=== PATIENT | male | born 1945 | race Caucasian/White ===

== ENCOUNTER → 2017-12-10 14:13 | Outpatient (CLI) | payer OTHER, SELFPAY | PROVIDERS: PCP Family Medicine; Visit Provider Internal Medicine Hematology & Oncology | DX: C83.10 Mantle cell lymphoma, unspecified site (principal) | CPT/HCPCS: 81401 ==

== ENCOUNTER 2017-12-25 09:45 | Day surgery (SDC) | payer OTHER, SELFPAY ==
[2017-12-25 10:25] VITALS: BP 125/74; PULSE 60; RESP 16; TEMP 36.4; O2SAT 99; BMI 25.1
--- NOTE | 2017-12-25 10:45 | PM.HP.1 ---
History of Present Illness Date Patient Seen: 12/25/17 Time Patient Seen: 10:46 Chief complaint: colonoscopy [id number] Narrative: Mr. Verona infante is a very pleasant 72-year-old gentleman who presents today for screening colonoscopy. He reports that his mother with colon cancer and so he is on a 5 year screening schedule. His last colonoscopy was done about 5 years ago at [facility]. We do not have those records. He reports that a benign polyp was removed at that time. He denies any new problems or symptoms related to the function of his GI tract. Patient History Family & Social History Family History: Reviewed 12/25/17 by Belinda Cm MD Meds Home Medications Medication Instructions Recorded Confirmed Type aspirin 81 mg PO QDAY #0 05/02/17 12/25/17 History [PROBIOTIC] #0 08/11/17 History melatonin 5 mg PO HS #0 08/11/17 12/25/17 History atorvastatin 20 mg PO DAILY 12/25/17 12/25/17 History verapamil 180 mg PO DAILY 12/25/17 12/25/17 History Allergies Allergy/AdvReac Type Severity Reaction Status Date / Time oxycodone Allergy Mild itching Verified 12/25/17 10:21 Review of Systems Review of Systems All systems reviewed & are unremarkable except as noted in HPI and below Exam Narrative Exam Narrative: Very pleasant and healthy-appearing gentleman in no obvious distress. HEENT: Normocephalic and atraumatic, pupils equal round reactive to light accommodation with anicteric sclera. Lungs: Clear to auscultation bilaterally Heart: Regular rate and rhythm Abdomen: Soft, nontender, active bowel sounds. Extremities warm and well perfused without open wounds or evidence of ongoing infection or tissue loss. Assessment & Plan Plan: Assessment/Plan Narrative: Very pleasant and a and generally healthy gentleman that has some few underlying medical problems who presents here for screening colonoscopy in the setting of a family history of colon cancer. We discussed the risks and benefits of colonoscopy the patient expressed desire to have the procedure.
[2017-12-25] MEDS: SODIUM CHLORIDE 0.9% 1,000 ML 200 ML IV (10:46)
--- NOTE | 2017-12-25 10:48 | P.HP_ITS ---
History of Present Illness Date Patient Seen: 12/25/17 Time Patient Seen: 10:46 Chief complaint: colonoscopy [id number] Narrative: Mr. Verona infante is a very pleasant 72-year-old gentleman who presents today for screening colonoscopy. He reports that his mother with colon cancer and so he is on a 5 year screening schedule. His last colonoscopy was done about [address] [facility]. We do not have those records. He reports that a benign polyp was removed at that time. He denies any new problems or symptoms related to the function of his GI tract. Patient History Family & Social History Family History: Reviewed 12/25/17 by Belinda Cm MD Meds Home Medications Medication Instructions Recorded Confirmed Type aspirin 81 mg PO QDAY #0 05/02/17 12/25/17 History [PROBIOTIC] #0 08/11/17 History melatonin 5 mg PO HS #0 08/11/17 12/25/17 History atorvastatin 20 mg PO DAILY 12/25/17 12/25/17 History verapamil 180 mg PO DAILY 12/25/17 12/25/17 History Allergies Allergy/AdvReac Type Severity Reaction Status Date / Time oxycodone Allergy Mild itching Verified 12/25/17 10:21 Review of Systems Review of Systems All systems reviewed & are unremarkable except as noted in HPI and below Exam Narrative Exam Narrative: Very pleasant and healthy-appearing gentleman in no obvious distress. HEENT: Normocephalic and atraumatic, pupils equal round reactive to light accommodation with anicteric sclera. Lungs: Clear to auscultation bilaterally Heart: Regular rate and rhythm Abdomen: Soft, nontender, active bowel sounds. Extremities warm and well perfused without open wounds or evidence of ongoing infection or tissue loss. Assessment & Plan Plan: Assessment/Plan Narrative: Very pleasant and a and generally healthy gentleman that has some few underlying medical problems who presents here for screening colonoscopy in the setting of a family history of colon cancer. We discussed the risks and benefits of colonoscopy the patient expressed desire to have the procedure.
[2017-12-25] MEDS: fentaNYL 250 MCG/5 ML INJ IV (11:01)
--- NOTE | 2017-12-25 11:22 | PM.OP.1 ---
Operative Date/Time/Diagnoses - Date of procedure: 12/25/17 Time of procedure: 11:22 Pre-op diagnosis: Screening Family history of colon cancer Post-op diagnosis: same Procedure & Clinicians Procedure: Screening Same procedure as scheduled: Yes Indications: Last colonoscopy 5 years ago Surgeon: Belinda Cm Anesthesia Type: Sedation (Versed 6 mg; fentanyl 200 mcg) Operative Notes Findings: 1. Excellent prep 2. No polyps or mass lesions 3. No AV malformations 4. Tortuous sigmoid colon with few scattered diverticuli 5. Grade 2 internal hemorrhoids 6. Essentially normal colonoscopy Closure Type: not applicable Specimen(s): none sent Estimated Blood Loss (mL): 0 Procedure in detail: After obtaining informed consent, the patient was brought to the GI suite and placed in the left lateral decubitus position on the examination table. After placement of appropriate monitors, the patient was given incremental doses of Versed and Fentanyl until an appropriate level of sedation was achieved. A time out was held per SCOAP protocol. A digital rectal examination was performed and did not reveal any masses or obstructing lesions. The colonoscope was gently passed into the patient's anus and the entire colon navigated to the level of the cecum with minimal difficulty. Once in the cecum, the scope was withdrawn being sure to go before and beyond all mucosal folds and prominences and get an excellent examination. The findings are noted above. At the level of the rectal vault, the scope was retroflexed and the internal anal canal was examined. The scope was straightened and air aspirated from the colon. The instrument was removed from the patient's body and the procedure was concluded. The patient was allowed to awaken from sedation without difficulty and taken to the post-anesthesia care unit in good condition. Total sedation time was 19 min Total withdrawal time 7 min 47 sec Complications: none Condition: stable Disposition: PACU Plan for aftercare: 1. Discharge to home 2. Plan for next colonoscopy in 5 years or as clinically indicated
[2017-12-25] MEDS: MIDAZOLAM 5 MG/5 ML VIAL IV (11:24)
[2017-12-25 11:30] VITALS: BP 110/57; PULSE 61; RESP 17; TEMP 36.1; O2SAT 96
[2017-12-25 11:35] VITALS: BP 109/59; PULSE 63; RESP 17; O2SAT 97
[2017-12-25 11:39] VITALS: BP 118/58; PULSE 67; RESP 18; TEMP 36.2; O2SAT 97
[2017-12-25 11:51] VITALS: BP 110/65; PULSE 66; RESP 17; TEMP 36.5; O2SAT 98
== END 2017-12-25 12:00 ==
LOC: ENDO 09:46
PROVIDERS: PCP Family Medicine; Visit Provider Surgery
PROC: 0DJD8ZZ Inspection of Lower Intestinal Tract, Via Natural or Artificial Opening Endoscopic (ICD-10-PCS; CPT 45378; principal; 2017-12-25 10:45)
DX: Z12.11 Encounter for screening for malignant neoplasm of colon (principal); K57.30 Diverticulosis of large intestine without perforation or abscess without bleeding; K64.1 Second degree hemorrhoids; Z80.0 Family history of malignant neoplasm of digestive organs; Z86.010 Personal history of colon polyps
CPT/HCPCS: 45378; 99152; G0105; J2250; J3010

== ENCOUNTER → 2018-01-29 14:23 | Outpatient (CLI) | payer OTHER, SELFPAY ==
[2018-01-29 15:00] LABS: Alanine Aminotransferase 25 IU/L (21-72); Albumin Globulin Ratio 1.5 (1.0-2.8); Alkaline Phosphatase 90 U/L (38-126); Aspartate Aminotransferase 32 IU/L (17-59); BUN Creatinine Ratio 24.4 (6-22); Bilirubin Total 0.8 mg/dL (0.2-1.3); Blood Urea Nitrogen 22 mg/dL (9-20); Calcium 8.7 mg/dL (8.4-10.2); Carbon Dioxide 27 mmol/L (22-32); Chloride 102 mmol/L (98-107); Estimated Glomerular Filt Rate > 60.0 mL/min (>60); Globulin 2.7 g/dL (1.7-4.1); Glucose 136 mg/dL (80-110); HEMOLYSIS < 15 (0-50); Lactate Dehydrogenase 497 U/L (313-618); Sodium 138 mmol/L (137-145); Total Protein 6.7 g/dL (6.3-8.2)
[2018-01-29 15:01] LABS: Hematocrit 30.5 % (41-53); Hemoglobin 10.1 g/dL (13.5-17.5); Mean Corpuscular HGB Conc 33.2 % (30-36); Mean Corpuscular Hemoglobin 30.8 PG (26-34); Mean Corpuscular Volume 92.5 fL (80-100); Platelet Count 76 X10^3/uL (150-400); Red Cell Distribution Width 18.8 % (11.6-14.8)
[2018-01-29 15:06] LABS: Add Manual Diff / Slide Review YES
--- NOTE | 2018-01-29 15:26 | PC.NURSE ---
Pt here for 4 week f/u labs as ordered by Dr Robledo. WBC on 01/08/18 were noted as 21K, today however the are down slightly to 16K. Pt has a provider visit in Feb to discuss moving forward with Rituxan/Bendamustine.
[2018-01-29 15:48] LABS: Anisocytosis 2+; Neutrophils Absolute Manual 1760 /uL (3000-5900); Total Cells Counted 100
[2018-01-29 15:49] LABS: Hypochromasia 2+; Poikilocytosis 1+
[2018-02-01 13:24] LABS: Haptoglobin 231 mg/dL (43-212)
== END ==
PROVIDERS: PCP Family Medicine; Visit Provider Internal Medicine Hematology & Oncology
DX: D47.9 Neoplasm of uncertain behavior of lymphoid, hematopoietic and related tissue, unspecified (principal)
CPT/HCPCS: 36415; 80053; 83010; 83615; 85025; 86880

== ENCOUNTER → 2018-02-12 10:46 | Outpatient (CLI) | payer OTHER, SELFPAY ==
--- NOTE | 2018-02-12 10:49 | DI.US.S_ITS ---
PROCEDURE: US ABDOMEN LIMITED INDICATIONS: SPLENOMEGALY TECHNIQUE: Real-time focused scanning was performed of the abdomen, with image documentation. COMPARISON: [facility], , ABDOMEN LIMITED, 08/18/2017, 9:13. FINDINGS: Splenomegaly is again noted, the spleen measuring 9.4 x 10.9 x 21.1 cm, volume 1127 cc. Volume on prior exam was 1163 cc with maximum dimension of 19.8 CM. No splenic mass lesions seen. IMPRESSION: Splenomegaly Dictated by: Hermes Marie M.D. on 02/12/2018 at 12:56 Approved by: Hermes Marie M.D. on 02/12/2018 at 12:58
== END ==
PROVIDERS: PCP Family Medicine; Visit Provider Nurse Practitioner Gerontology
DX: R16.1 Splenomegaly, not elsewhere classified (principal)
CPT/HCPCS: 76705

== ENCOUNTER 2018-03-05 12:11 | Emergency (ER) | payer OTHER, SELFPAY ==
[2018-03-05 12:15] VITALS: BP 112/65; PULSE 65; RESP 18; TEMP 36.7; O2SAT 100; BMI 25.0
--- NOTE | 2018-03-05 12:31 | ED_ITS ---
HPI - Nausea/Vomiting/Diarrhea <Yarelis Jaeger PA-C - Last Filed: 03/05/18 13:19> General Chief complaint: Nausea/Vomiting/Diarrhea Stated complaint: DIARRHEA X2 DAYS Time Seen by Provider: 03/05/18 12:28 Source: patient Mode of arrival: ambulatory Limitations: no limitations History of Present Illness HPI Narrative: This 72 year old gentleman comes in today due to diarrhea for the last 2 days. He states that he was traveling on his boat in [place] and about a week and a half ago opened a can of pickled asparagus and the seal sounded funny. He ate a bit and states that he was violently ill that night with vomiting and diarrhea. States that he was better by the next day. He states that he has been fine since then until yesterday, when he started to have diarrhea again. He states this is watery, has had 3 episodes per day. There is no blood in the stool. He states that he does not have any abdominal pain or vomiting associated with this. He has not had any fever. He denies any urinary symptoms, chest pain, dyspnea or other complaints on systems review. He states that he has not had any recent medication changes, no recent antibiotics, other travel or diet changes. They do get water via hose from various ports when on their boat, but this is filtered and his has not been ill. He states he is feeling fine now, last bowel movement was a couple of hours prior to arrival. He has a normal appetite and he eating and drinking normally Related Data Home Medications Medication Instructions Recorded Confirmed aspirin 81 mg PO QDAY #0 05/02/17 12/25/17 [PROBIOTIC] #0 08/11/17 melatonin 5 mg PO HS #0 08/11/17 12/25/17 atorvastatin 20 mg PO DAILY 12/25/17 12/25/17 verapamil 180 mg PO DAILY 12/25/17 12/25/17 cholecalciferol (vitamin D3) 2,000 unit PO DAILY 01/08/18 01/08/18 [Vitamin D3] multivitamin 1 cap PO DAILY 01/08/18 01/08/18 Allergies Allergy/AdvReac Type Severity Reaction Status Date / Time oxycodone Allergy Mild itching Verified 03/05/18 12:20 Review of Systems <Yarelis Jaeger PA-C - Last Filed: 03/05/18 13:19> Review of Systems All systems reviewed & are unremarkable except as noted in HPI and below Exam <Yarelis Jaeger PA-C - Last Filed: 03/05/18 13:19> Narrative Exam Narrative: GENERAL APPEARANCE: Patient sitting comfortably, in no distress. HEENT: PERRL, EOMI, no scleral icterus NECK: Supple LUNGS: Clear to auscultation bilaterally. HEART: Rate and rhythm regular, normal S1 and S2, no S3 or S4. ABDOMEN: Soft, nontender, nondistended, bowel sounds present x 4 quadrants, no masses palpable, no hepatosplenomegaly. EXTREMITIES: No edema, no cyanosis DERMATOLOGIC: No jaundice or exanthem NEUROLOGIC: Alert and oriented with normal speech and coordination Initial Vital Signs Initial Vital Signs: Vital Signs Temperature 98.0 F 03/05/18 12:15 Pulse Rate 65 03/05/18 12:15 Respiratory Rate 18 03/05/18 12:15 Blood Pressure 112/65 03/05/18 12:15 Pulse Oximetry 100 03/05/18 12:15 <DO Deneen Pierce Last Filed: 03/08/18 23:48> Initial Vital Signs Initial Vital Signs: Vital Signs Temperature 98.0 F 03/05/18 12:15 Pulse Rate 65 03/05/18 12:15 Respiratory Rate 18 03/05/18 12:15 Blood Pressure 112/65 03/05/18 12:15 Pulse Oximetry 100 03/05/18 12:15 Course <Yarelis Jaeger PA-C - Last Filed: 03/05/18 13:19> Additional Information: Patient is unable to produce a stool sample while here. He reports that he is feeling well currently and wishes to d/c. He agreed to return if feeling acutely worse again or new symptoms such as pain, vomiting, fever. He was given a stool kit to take home in case he feels like he needs to return to the ED and able to produce a sample to bring in Vital Signs - 8 hr 03/05/18 12:15 Temperature 98.0 F Pulse Rate 65 Respiratory Rate 18 Blood Pressure 112/65 Pulse Oximetry 100 <Hal Gonzalez DO - Last Filed: 03/08/18 23:48> Vital Signs - 8 hr 03/05/18 12:15 Temperature 98.0 F Pulse Rate 65 Respiratory Rate 18 Blood Pressure 112/65 Pulse Oximetry 100 Discharge Plan Departure Patient Disposition: Home Clinical Impression: Diarrhea Discharge Date/Time: 03/05/18 13:06 Interventions: ED Discharge Assessment Last Done: 03/05/18 13:05 Instructions: DI for Diarrhea and Traveler's Diarrhea -- Adult Activity Restrictions/Additional Instructions: Since you are not able to give us a stool sample now and are feeling fairly well , it is reasonable to monitor at home as you prefer. You can try over the counter immodium as needed. Please drink plenty of clear fluids. Eat a bland diet, like the BRAT diet (bananas, broth, white rice, white toast, applesauce , tea) until you are better, then you can gradually advance to your usual diet. We have given you stool culture tubes in case you are feeling worse again and want to collect a stool sample to bring if you need to return to the ED so that we can send it for testing. You should return if you are feeling acutely worse , or have new symptoms such as fever, pain, or vomiting. Otherwise you can follow up with your PCP if this is not resolving by the weekend Prescriptions: No Action aspirin 81 MG tablet,delayed release (DR/EC) 81 mg PO QDAY Qty: 0 RF: 0 melatonin 5 MG tablet 5 mg PO HS Qty: 0 RF: 0 [PROBIOTIC] Qty: 0 RF: 0 atorvastatin 20 mg Tablet 20 mg PO DAILY RF: 0 verapamil 180 mg PO DAILY RF: 0 multivitamin Capsule 1 cap PO DAILY RF: 0 cholecalciferol (vitamin D3) [Vitamin D3] 2,000 unit Capsule 2,000 unit PO DAILY RF: 0 Referrals: Nura Umana [Other]
== END 2018-03-05 13:06 | disposition home or self-care (01) ==
PROVIDERS: Emergency Provider Internal Medicine; PCP Family Medicine
DX: R19.7 Diarrhea, unspecified (principal)
CPT/HCPCS: 99282

== ENCOUNTER → 2018-03-24 09:52 | Outpatient (CLI) | payer OTHER, SELFPAY ==
[2018-03-24 10:16] LABS: Hematocrit 28.5 % (41-53); Hemoglobin 9.3 g/dL (13.5-17.5); Mean Corpuscular HGB Conc 32.7 % (30-36); Mean Corpuscular Hemoglobin 30.4 PG (26-34); Platelet Count 80 X10^3/uL (150-400); Red Blood Cell Count 3.06 X10^6/uL (4.5-5.9); Red Cell Distribution Width 20.5 % (11.6-14.8); White Blood Cell Count 18.4 X10^3/uL (4.5-11.0)
[2018-03-24 10:17] LABS: Add Manual Diff / Slide Review YES
[2018-03-24 10:26] LABS: Alanine Aminotransferase 26 IU/L (21-72); Albumin 3.8 g/dL (3.5-5.0); Albumin Globulin Ratio 1.4 (1.0-2.8); Alkaline Phosphatase 80 U/L (38-126); Aspartate Aminotransferase 28 IU/L (17-59); BUN Creatinine Ratio 28.9 (6-22); Bilirubin Total 0.7 mg/dL (0.2-1.3); Blood Urea Nitrogen 26 mg/dL (9-20); Calcium 8.7 mg/dL (8.4-10.2); Carbon Dioxide 30 mmol/L (22-32); Chloride 104 mmol/L (98-107); Estimated Glomerular Filt Rate > 60.0 mL/min (>60); Globulin 2.7 g/dL (1.7-4.1); Glucose 97 mg/dL (80-110); HEMOLYSIS < 15 (0-50); Lactate Dehydrogenase 463 U/L (313-618); Potassium 4.5 mmol/L (3.4-5.1); Sodium 142 mmol/L (137-145); Total Protein 6.5 g/dL (6.3-8.2)
[2018-03-24 10:45] LABS: Neutrophils Absolute Manual 1472 /uL (3000-5900); Total Cells Counted 100
[2018-03-24 10:48] LABS: Smudge Cells 1+
[2018-03-24 10:49] LABS: Poikilocytosis 1+
--- NOTE | 2018-03-24 12:02 | PC.NURSE ---
Pt here for pre visit labs. WBC up at 18.4 compared to 16.0 in January. Provider visit on 03/30
[2018-03-25 15:20] LABS: Free Kappa Light Chain 29.2 mg/L (3.3-19.4); Free Kappa/ Lambda Ratio 1.78 (0.26-1.65); Free Lambda 16.4 mg/L (5.7-26.3)
[2018-03-26 21:40] LABS: Albumin 3.5 g/dL (3.8-4.8); Alpha 1 Globulin 0.4 g/dL (0.2-0.3); Alpha 2 Globulin 0.8 g/dL (0.5-0.9); Beta 1 Globulin 0.4 g/dL (0.4-0.6); Gamma Globulin 0.7 g/dL (0.8-1.7); Protein, Total 6.1 g/dL (6.1-8.1)
== END ==
PROVIDERS: PCP Family Medicine; Visit Provider Nurse Practitioner Gerontology
DX: D47.9 Neoplasm of uncertain behavior of lymphoid, hematopoietic and related tissue, unspecified (principal)
CPT/HCPCS: 36415; 80053; 83615; 83883; 84155; 84165; 85025

== ENCOUNTER → 2018-03-31 14:22 | Outpatient (CLI) | payer OTHER, SELFPAY ==
--- NOTE | 2018-03-31 14:23 | DI.CT.S_ITS ---
PROCEDURE: CT CHEST ABD PEL W CON INDICATIONS: lymphoma TECHNIQUE: After the administration of oral and intravenous contrast, 5 mm thick sections acquired from the lung apices to the symphysis. 5 mm coronal and sagittal reformats were performed, with additional 7 mm coronal MIP reformats through the lungs. For radiation dose reduction, the following was used: automated exposure control, adjustment of mA and/or kV according to patient size. COMPARISON: [facility], CT, CHEST/ABD/PEL WITH CONTRAST, 09/05/2017, 15:07. FINDINGS: Image quality: Excellent. CHEST: Lungs and pleura: There is bilateral subpleural septal thickening compatible with chronic interstitial changes. Calcified nodules are redemonstrated consistent of old granulomatous disease. No new suspicious nodules or mass lesions. No pleural effusions or pneumothorax. Central and peripheral airways appear patent and normal in caliber. Mediastinum: Heart size is normal. No pericardial effusion. No mediastinal or hilar adenopathy by size criteria. Thoracic aorta and central pulmonary arteries are normal in size. Esophagus is normal in caliber. There is a small hiatal hernia. Chest wall: No axillary or supraclavicular adenopathy by size criteria. A ABDOMEN: Solid organs: Liver is normal in size and enhancement. Gallbladder appears within normal limits without calcified gallstones. Biliary system is non dilated. Pancreas enhances normally. There is marked splenomegaly, measuring up to 19.7 cm, increased from the prior study. No adrenal nodules. Kidneys demonstrate normal size and enhancement, without hydronephrosis. Peritoneum and bowel: Bowel loops demonstrate normal wall thickness and caliber. No free fluid or air. Nodes and vessels: No retroperitoneal or mesenteric adenopathy by size criteria. Aorta and inferior vena cava are normal in size. Miscellaneous: No ventral hernias. PELVIS: Genitourinary: There is mild bladder wall thickening anteriorly. There is heterogeneous enlargement of the prostate redemonstrated. Miscellaneous: No inguinal hernias or adenopathy. Bones: No suspicious bony lesions. No vertebral body compression fractures. IMPRESSION: 1. No evidence of lymphadenopathy in the chest, abdomen, or pelvis. 2. Marked splenomegaly increased from the prior study. Dictated by: Pete Padgett M.D. on 03/31/2018 at 17:20 Approved by: Pete Padgett M.D. on 03/31/2018 at 17:23
--- NOTE | 2018-03-31 14:23 | DI.CT.S_ITS ---
PROCEDURE: CT SOFT TISSUE NECK W CON INDICATIONS: LYMPHOMA TECHNIQUE: After the administration of intravenous contrast, 3.0 mm axial sections acquired from the sella to the aortic arch. Additional oblique axial 3.0 mm sections acquired through the pharynx. 3 mm thick coronal and sagittal reformats were generated. For radiation dose reduction, the following was used: automated exposure control. COMPARISON: [facility], CR, CHEST 1 VIEW, 08/12/2014, 11:29. [facility], CT, CHEST/ABD/PEL WITH CONTRAST, 09/05/2017, 15:07. [facility], CT, CT CHEST ABD PEL W CON, 03/31/2018, 15:44. FINDINGS: Image quality: Excellent. Lymph nodes: A borderline enlarged left supraclavicular lymph node measures 1 cm. Numerous small normal sized cervical lymph nodes are present bilaterally. Vessels: Visualized vasculature appears patent. Neck spaces: The oropharynx, nasopharynx, and pharynx demonstrate no mucosal lesions. The vocal cords, false vocal cords, pyriform sinuses, epiglottis, vallecula, and tongue base all appear normal. Extramucosal spaces appear unremarkable. Glands: The parotid and submandibular glands appear normal. Thyroid gland is normal. Miscellaneous: Visualized brain and orbits appear normal. Lung apices appear clear. Superficial soft tissues appear normal. Bones: No suspicious bony lesions. There is severe degenerative disc disease at C5-6 and C6-C7. Bilateral uncovertebral hypertrophy and facet arthropathy scattered in cervical spine, most onset of C4-C5 on the left, and C2-C3, C3-C4 on the right.. Visualized sinuses and mastoids appear unremarkable. IMPRESSION: 1. Borderline enlarged left supraclavicular lymph node. Otherwise no cervical lymphadenopathy. 2. Severe degenerative changes in cervical spine. Dictated by: Letty Lucas M.D. on 03/31/2018 at 17:18 Transcribed by: JOEY on 03/31/2018 at 17:22 Approved by: Letty Lucas M.D. on 03/31/2018 at 17:29
== END ==
PROVIDERS: PCP Family Medicine; Visit Provider Internal Medicine Hematology & Oncology
DX: C85.89 Other specified types of non-Hodgkin lymphoma, extranodal and solid organ sites (principal); R07.0 Pain in throat; M50.322 Other cervical disc degeneration at C5-C6 level; R16.1 Splenomegaly, not elsewhere classified
CPT/HCPCS: 70491; 71260; 74177; Q9967

== ENCOUNTER → 2018-04-01 13:54 | Outpatient (CLI) | payer OTHER, SELFPAY ==
[2018-04-01 14:46] LABS: Lactate Dehydrogenase 484 U/L (313-618)
[2018-04-01 18:39] LABS: Hepatitis B Surface Antigen NEGATIVE s/c (NEGATIVE)
[2018-04-01 18:57] LABS: HIV 1 and 2 Antibody NEGATIVE (NEGATIVE); Hep C Virus Ab w/Reflex Quant NEGATIVE s/c (NEGATIVE)
[2018-04-03 14:46] LABS: Hepatitis A Antibody IgM Nonreactive (Nonreactive)
== END ==
PROVIDERS: PCP Family Medicine; Visit Provider Internal Medicine Hematology & Oncology
DX: C85.89 Other specified types of non-Hodgkin lymphoma, extranodal and solid organ sites (principal)
CPT/HCPCS: 36415; 83615; 84550; 86703; 86704; 86705; 86709; 86803; 87340

== ENCOUNTER → 2018-08-19 09:48 | Outpatient (CLI) | payer OTHER, SELFPAY ==
--- NOTE | 2018-08-19 09:53 | DI.CT.S_ITS ---
PROCEDURE: CT CHEST ABD PEL W CON INDICATIONS: Lymphoma restaging TECHNIQUE: After the administration of oral and intravenous contrast, 5 mm thick sections acquired from the lung apices to the symphysis. 5 mm coronal and sagittal reformats were performed, with additional 7 mm coronal MIP reformats through the lungs. For radiation dose reduction, the following was used: automated exposure control, adjustment of mA and/or kV according to patient size. COMPARISON: [facility], CT, CT CHEST ABD PEL W CON, 03/31/2018, 15:44. [facility], CT, CHEST/ABD/PEL WITH CONTRAST, 09/05/2017, 15:07. FINDINGS: Image quality: Diagnostic. CHEST: Lungs and pleura: The aeration of the lungs is similar to the prior study with areas of interstitial thickening identified within the posterior bilateral lungs. No focal consolidation, effusion, or pneumothorax is identified. There is no lung mass. Subcentimeter nodule is again evident along the left pulmonary fissure that measures approximately 8 mm in diameter (image 30, series 2). No new nodules are evident. Mediastinum: Heart size is normal. Coronary and aortic atherosclerosis is present. No pericardial effusion. No mediastinal or hilar adenopathy by size criteria. Thoracic aorta and central pulmonary arteries are normal in size. Esophagus is normal in caliber. No hiatal hernia. Chest wall and bones: No axillary or supraclavicular adenopathy by size criteria. Thyroid gland is not enlarged or adequately evaluated. Moderate multilevel degenerative changes of the thoracic spine are present with associated straightening of the normal thoracic kyphosis. No suspicious osseous lesions are evident. No acute fractures are identified. ABDOMEN: Solid organs: Marked enlargement of the spleen is again identified measuring approximately 21.1 cm in craniocaudal dimension, not significantly changed, given differences in imaging technique. No focal splenic lesions are evident. The liver is slightly hypodense when compared to the spleen, but is otherwise within normal limits. The adrenals, pancreas, and kidneys are unremarkable. Mild anterior displacement of the left kidney is identified, related to the enlarged spleen. There is no hydronephrosis. Peritoneum and bowel: Bowel loops demonstrate normal wall thickness and caliber. No free fluid or air. No loculated fluid collections are present. Moderate residual stool is identified within the colon. There are areas of distal colonic diverticulosis. Nodes and vessels: No retroperitoneal or mesenteric adenopathy by size criteria. Aorta and inferior vena cava are normal in size. There is aortic atherosclerosis. Bones: No acute fracture or suspicious osseous lesion is evident. There are prominent degenerative changes of the mid to lower lumbar spine. Grade 1 anterolisthesis of L4 and L5 is present. PELVIS: Genitourinary: Mild prominence of the urinary bladder wall is present. The prostate gland is enlarged and lobular, but not well characterized on CT. Miscellaneous: No inguinal hernias or adenopathy. No free fluid or loculated fluid collection is identified. Bones: No suspicious bony lesions. Degenerative changes of the sacroiliac joints and bilateral hips are present. IMPRESSION: 1. Marked splenomegaly without significant change in size or focal splenic lesion. 2. No lymphadenopathy or evidence of metastatic disease. Additional findings: -Enlarged prostate with thickening of the urinary bladder wall. Please correlate clinically to exclude chronic bladder outlet obstruction. -Distal colonic diverticulosis without diverticulitis. -Age-appropriate degenerative changes of the spine and pelvic joints. -Probable mild hepatic steatosis. -Coronary and aortic atherosclerosis. -Mild chronic interstitial changes within the lung bases. -Subcentimeter pulmonary nodule within the left midlung is unchanged and of doubtful significance. Dictated by: Long Freeman M.D. on 08/19/2018 at 10:32 Approved by: Long Freeman M.D. on 08/19/2018 at 10:39
== END ==
PROVIDERS: Visit Provider Internal Medicine Hematology & Oncology
DX: C85.89 Other specified types of non-Hodgkin lymphoma, extranodal and solid organ sites (principal); R16.1 Splenomegaly, not elsewhere classified; N40.0 Benign prostatic hyperplasia without lower urinary tract symptoms; K57.90 Diverticulosis of intestine, part unspecified, without perforation or abscess without bleeding; R91.1 Solitary pulmonary nodule; I25.10 Atherosclerotic heart disease of native coronary artery without angina pectoris; I70.0 Atherosclerosis of aorta; J84.9 Interstitial pulmonary disease, unspecified; M16.0 Bilateral primary osteoarthritis of hip; M47.898 Other spondylosis, sacral and sacrococcygeal region
CPT/HCPCS: 71260; 74177; Q9967

== ENCOUNTER → 2019-03-10 12:53 | Outpatient (CLI) | payer OTHER, SELFPAY ==
--- NOTE | 2019-03-10 | DI.CT.S_ITS ---
PROCEDURE: CT ABDOMEN W CON INDICATIONS: Splenomegaly, not elsewhere classified TECHNIQUE: After the administration of oral and intravenous contrast, 5 mm thick sections acquired from the diaphragms to the iliac crests. 5 mm thick coronal and sagittal reformats were acquired. For radiation dose reduction, the following was used: automated exposure control, adjustment of mA and/or kV according to patient size. COMPARISON: [facility], CT, CT CHEST ABD PEL W CON, 08/19/2018, 10:44. FINDINGS: Image quality: Excellent. Lung bases: Mild intralobular septal thickening at the lung bases.. Heart size is normal. Solid organs: The spleen is significantly enlarged measuring 23.2 x 17.6 x 8.5 cm. The splenic and portal veins are moderately enlarged. There is anterior and slight medial displacement of the normal appearing left kidney. Liver is normal in size and enhancement. Gallbladder is contracted. Biliary system is non dilated. Pancreas enhances normally. Spleen is normal in size and enhancement. No adrenal nodules. Kidneys are normal in size, without hydronephrosis. Peritoneum and bowel: Contrast enhanced bowel loops appear normal in caliber. No free fluid or air. Nodes and vessels: No retroperitoneal or mesenteric adenopathy by size criteria. Aorta and inferior vena cava are normal in size. Tortuous and moderately atherosclerotic mid to distal abdominal aorta. Borderline left periaortic lymph nodes. Bones: No suspicious bony lesions. No vertebral body compression fractures. Degenerative changes in the lumbar spine. Miscellaneous: No ventral hernias. IMPRESSION: 1. Marked splenomegaly without significant progression since the prior study. 2. Borderline left retroperitoneal adenopathy is unchanged. Dictated by: Lucy Barry M.D. on 03/10/2019 at 19:13 Approved by: Lucy Barry M.D. on 03/10/2019 at 19:18
== END ==
PROVIDERS: Visit Provider Surgery
DX: R16.1 Splenomegaly, not elsewhere classified (principal)
CPT/HCPCS: 74160; Q9967

== ENCOUNTER → 2019-04-15 15:12 | Outpatient (CLI) | payer OTHER, SELFPAY ==
[2019-04-15 15:47] LABS: Add Manual Diff / Slide Review YES; Hematocrit 29.8 % (41-53); Mean Corpuscular HGB Conc 33.5 % (30-36); Mean Corpuscular Volume 92.6 fL (80-100); Platelet Count 71 X10^3/uL (150-400); Red Blood Cell Count 3.22 X10^6/uL (4.5-5.9); Red Cell Distribution Width 19.6 % (11.6-14.8); White Blood Cell Count 11.9 X10^3/uL (4.5-11.0)
[2019-04-15 16:25] LABS: Neutrophils Absolute Manual 1547 /uL (3000-5900); Total Cells Counted 100
[2019-04-15 16:26] LABS: Anisocytosis 1+; Poikilocytosis 1+
[2019-04-15 16:37] LABS: HEMOLYSIS < 15 (0-50); Iron 46 ug/dL (49-181)
[2019-04-15 16:38] LABS: Alanine Aminotransferase 24 IU/L (21-72); Albumin 4.1 g/dL (3.5-5.0); Albumin Globulin Ratio 1.6 (1.0-2.8); Alkaline Phosphatase 99 U/L (38-126); Aspartate Aminotransferase 29 IU/L (17-59); BUN Creatinine Ratio 26.7 (6-22); Bilirubin Total 0.8 mg/dL (0.2-1.3); Blood Urea Nitrogen 24 mg/dL (9-20); Calcium 9.3 mg/dL (8.4-10.2); Carbon Dioxide 28 mmol/L (22-32); Chloride 102 mmol/L (98-107); Estimated Glomerular Filt Rate > 60.0 mL/min (>60); Globulin 2.6 g/dL (1.7-4.1); Glucose 112 mg/dL (80-110); HEMOLYSIS < 15 (0-50); Lactate Dehydrogenase 481 U/L (313-618); Potassium 4.9 mmol/L (3.4-5.1); Sodium 140 mmol/L (137-145); Total Protein 6.7 g/dL (6.3-8.2)
[2019-04-15 16:48] LABS: Percent Iron Saturation 15 % (20-50); Total Iron Binding Capacity 316 ug/dL (261-462); Transferrin 241 mg/dL (206-381)
[2019-04-15 16:53] LABS: Smudge Cells 1+
[2019-04-15 17:12] LABS: Ferritin 50.6 ng/mL (17.9-464)
[2019-04-17 12:21] LABS: Beta-2-Microglobulin 3.04 mg/L (< 2.52)
== END ==
PROVIDERS: Internal Medicine Hematology & Oncology; Visit Provider Anesthesiology
DX: D64.9 Anemia, unspecified (principal); C85.89 Other specified types of non-Hodgkin lymphoma, extranodal and solid organ sites
CPT/HCPCS: 36415; 80053; 82232; 82728; 83540; 83550; 83615; 85025

== ENCOUNTER → 2019-05-28 10:07 | Outpatient (CLI) | payer OTHER, SELFPAY ==
[2019-05-28 10:57] LABS: Hemoglobin A1C% w Est Avg Glu 5.1 % (4.0-6.0)
[2019-05-28 11:07] LABS: Alanine Aminotransferase 26 IU/L (<50); Albumin 4.3 g/dL (3.5-5.0); Albumin Globulin Ratio 1.7 (1.0-2.8); Alkaline Phosphatase 98 U/L (38-126); Aspartate Aminotransferase 36 IU/L (17-59); BUN Creatinine Ratio 26.3 (6-22); Bilirubin Total 0.7 mg/dL (0.2-1.3); Blood Urea Nitrogen 21 mg/dL (9-20); Calcium 9.3 mg/dL (8.4-10.2); Carbon Dioxide 30 mmol/L (22-32); Chloride 100 mmol/L (98-107); Cholesterol 156 mg/dL (140-199); Estimated Glomerular Filt Rate > 60.0 mL/min (>60); Globulin 2.5 g/dL (1.7-4.1); Glucose 95 mg/dL (80-110); HDL Cholesterol 41 mg/dL (40-60); HEMOLYSIS < 15 (0-50); LDL Cholesterol Calculated 102 mg/dL (<100); Potassium 4.8 mmol/L (3.4-5.1); Sodium 138 mmol/L (137-145); Total Protein 6.8 g/dL (6.3-8.2); Triglycerides 63 mg/dL (35-150)
[2019-05-28 11:37] LABS: TSH w/ Reflex to FT4 1.54 uIU/mL (0.47-4.68)
== END ==
PROVIDERS: PCP Internal Medicine Hematology & Oncology
DX: Z00.00 Encounter for general adult medical examination without abnormal findings (principal)
CPT/HCPCS: 36415; 80053; 80061; 83036; 84443

== ENCOUNTER → 2020-01-21 11:13 | Outpatient (CLI) | payer OTHER, SELFPAY ==
[2020-01-21 11:45] LABS: Add Manual Diff / Slide Review YES; Hematocrit 35.8 % (41-53); Hemoglobin 12.1 g/dL (13.5-17.5); Mean Corpuscular HGB Conc 33.7 % (30-36); Mean Corpuscular Hemoglobin 34.1 PG (26-34); Mean Corpuscular Volume 101.4 fL (80-100); Platelet Count 226 X10^3/uL (150-400); Red Blood Cell Count 3.53 X10^6/uL (4.5-5.9); Red Cell Distribution Width 18.2 % (11.6-14.8); White Blood Cell Count 23.9 X10^3/uL (4.5-11.0)
[2020-01-21 11:56] LABS: Alanine Aminotransferase 21 IU/L (<50); Albumin 4.2 g/dL (3.5-5.0); Albumin Globulin Ratio 1.4 (1.0-2.8); Alkaline Phosphatase 103 U/L (38-126); Aspartate Aminotransferase 40 IU/L (17-59); BUN Creatinine Ratio 23.7 (6-22); Bilirubin Total 0.9 mg/dL (0.2-1.3); Blood Urea Nitrogen 18 mg/dL (9-20); Carbon Dioxide 28 mmol/L (22-32); Chloride 102 mmol/L (98-107); Estimated Glomerular Filt Rate > 60.0 mL/min (>60); Globulin 2.9 g/dL (1.7-4.1); Glucose 126 mg/dL (80-110); HEMOLYSIS < 15 (0-50); Lactate Dehydrogenase 497 U/L (313-618); Potassium 4.2 mmol/L (3.4-5.1); Sodium 135 mmol/L (137-145); Total Protein 7.1 g/dL (6.3-8.2)
[2020-01-21 11:59] LABS: Anisocytosis 2+; Neutrophils Absolute Manual 3107 /uL (3000-5900); Nucleated Red Blood Cells 1 #/Diff; Poikilocytosis 1+; Total Cells Counted 100
== END ==
PROVIDERS: PCP Family Medicine; Referring Provider Internal Medicine Hematology & Oncology; Visit Provider Internal Medicine Hematology & Oncology
DX: C85.89 Other specified types of non-Hodgkin lymphoma, extranodal and solid organ sites (principal)
CPT/HCPCS: 36415; 80053; 82232; 83615; 85025

== ENCOUNTER 2020-09-14 11:12 | Emergency (ER) | payer OTHER, SELFPAY ==
[2020-09-14] VITALS (8 sets, daily range): BP systolic 136–184; BP diastolic 74–79; PULSE 45–54; RESP 14–18; TEMP 36.6; O2SAT 98–100; BMI 26.6
--- NOTE | 2020-09-14 11:31 | ED_ITS ---
HPI - General Adult General Chief complaint: Abdominal Pain Stated complaint: abdominal pain Time Seen by Provider: 09/14/20 11:18 Source: patient Mode of arrival: Ambulatory Limitations: no limitations History of Present Illness HPI narrative: Patient is a 75-year-old male. Does have a history of lymphoma. Approximately 1 year ago had his spleen removed secondary to enlargement. States he went to bed last evening feeling falling. Was woken up from sleep at approximately 0230 in the morning with left-sided abdominal pain. He states that he was sharp. It lasted a very short period of time and then went away. When he woke up again at 0500 hours in the morning he noticed that the pain was gone but since that time it has occurred multiple times. He states that is not lower his left side. He has not had a bowel movement in 24 hours. Yesterday reports no changes in his bowel movement. No urinary symptoms. No testicular pain. No fevers. Patient reports he is symptom-free at the time of my exam. Related Data Home Medications Medication Instructions Recorded Confirmed atorvastatin 20 mg PO DAILY 12/25/17 05/25/20 nitroglycerin 0.4 mg SUBLINGUAL Q5-15M PRN 04/13/18 05/25/20 naproxen sodium [Aleve] 220 mg PO BID PRN 08/21/18 05/25/20 aspirin 81 mg DAILY 05/20/19 05/25/20 multivitamin 1 cap PO DAILY 05/20/19 05/25/20 cholecalciferol (vitamin D3) 25 mcg PO DAILY 05/25/20 05/25/20 [Vitamin D3] metoprolol succinate 50 mg PO DAILY 05/25/20 05/25/20 Allergies Allergy/AdvReac Type Severity Reaction Status Date / Time oxycodone Allergy Mild itching Verified 09/14/20 11:34 Review of Systems Constitutional Constitutional: Denies fever(s) Cardiovascular Cardiovascular: Denies chest pain and Denies dyspnea Respiratory Respiratory: Denies dyspnea Gastrointestinal Gastrointestinal: Reports abdominal pain, Denies change in bowel habits, Denies nausea and Denies vomiting Genitourinary Genitourinary: Denies dysuria and Denies testicular pain Genitourinary: Denies dysuria Musculoskeletal Musculoskeletal: Denies arthralgias, Denies back pain and Denies myalgias Integumentary/Breasts Skin/Breast: Denies rash Neurologic Neurologic: Denies behavioral changes Psychiatric Psychiatric: Denies behavioral changes Hematologic/Lymphatic On Anticoagulants: No Allergic/Immunologic Allergic/Immunologic: Denies urticaria Patient History Medical History (Updated 09/14/20 @ 13:01 by Stevenson Kidd DO) A-fib Diarrhea Distal radius fracture, left Social History household members: spouse Smoking Status: Former smoker Smoking Status: Former smoker alcohol intake frequency: 0-2 drinks per day Substance Use Type: does not use Exam Initial Vital Signs Initial Vital Signs: Vital Signs Temperature 98 F 09/14/20 11:15 Pulse Rate 46 L 09/14/20 11:15 Respiratory Rate 16 09/14/20 11:15 Blood Pressure 170/74 H 09/14/20 11:15 Pulse Oximetry 100 09/14/20 11:15 Const General: cooperative and comfortable Limitations: mental status not altered HENMT Head: normal to inspection and normocephalic Resp Effort & Inspection: normal respiratory effort Auscultation: clear to auscultation bilaterally Cardio Rate: regular rate Rhythm: regular rhythm GI Inspection: non-distended Palpation: soft, No firm and No tender Back/Spine/Pelvis Back: No CVA tenderness Skin Lesions: no lesions Rashes: no rashes Neuro General: patient alert and patient awake Cognition: normal cognition Speech: speech normal Extrem General: normal to inspection and capillary refill normal Psych Appearance: grossly normal and well kempt Course Orders Ordered: ED Orders 09/14/20 11:23 Complete Blood Count AUTO DIFF Stat Comprehensive Metabolic Panel Stat Lipase Stat 09/14/20 12:10 CT abdomen pelvis w con Stat Discontinued Medications Sodium Chloride (Normal Saline 0.9%) 1,000 mls @ 1,000 mls/hr IV BOLUS ONE Stop: 09/14/20 12:30 Last Admin: 09/14/20 11:46 Dose: 1,000 mls/hr Documented by: MILLI Vital Signs Vital signs: Vital Signs - 8 hr 09/14/20 11:15 09/14/20 11:19 09/14/20 11:20 Temperature 98 F Pulse Rate 46 L 51 L 49 L Respiratory Rate 16 Blood Pressure 170/74 H 184/76 H Pulse Oximetry 100 100 100 09/14/20 11:30 09/14/20 11:31 09/14/20 12:00 Temperature Pulse Rate 53 L 50 L 45 L Respiratory Rate 18 18 17 Blood Pressure 170/74 H Pulse Oximetry 100 100 100 09/14/20 12:01 09/14/20 12:17 Temperature Pulse Rate 45 L 54 L Respiratory Rate 17 14 Blood Pressure 136/79 142/76 H Pulse Oximetry 99 98 Medical Decision Making Lab Data Lab results reviewed: Yes I reviewed the patient's lab results. Result diagrams: 09/14/20 11:23 09/14/20 11:23 Labs: Lab Results 09/14/20 09/14/20 Range/Units 11:23 11:23 WBC 25.6 H (4.5-11.0) X10^3/uL RBC 3.28 L (4.5-5.9) X10^6/uL Hgb 10.8 L (13.5-17.5) g/dL Hct 33.0 L (41-53) % MCV 100.3 H (80-100) fL MCH 32.9 (26-34) PG MCHC 32.8 (30-36) % RDW 18.8 H (11.6-14.8) % Plt Count 192 (150-400) X10^3/uL Neut % (Auto) Not Reportable Lymph % (Auto) Not Reportable [place] % (Auto) Not Reportable Eos % (Auto) Not Reportable Baso % (Auto) Not Reportable Lymph # (Auto) Not Reportable [place] # (Auto) Not Reportable Baso # (Auto) Not Reportable Total Counted 100 Seg Neutrophils % 7.0 L (38-70) % Lymphocytes % (Manual) 56.0 H (25-45) % Atypical Lymphs % 30.0 H ( - 0) % Monocytes % (Manual) 6.0 (2-11) % Eosinophils % (Manual) 1.0 L (2-4) % Neutrophils # (Manual) 1792 L (3931-1290) /uL RBC Morphology See below Hypochromasia 1+ H Poikilocytosis 1+ H Anisocytosis 2+ H Sodium 135 L (137-145) mmol/L Potassium 4.5 (3.4-5.1) mmol/L Chloride 101 (98-107) mmol/L Carbon Dioxide 31 (22-32) mmol/L BUN 24 H (9-20) mg/dL Creatinine 0.69 (0.66-1.25) mg/dL Estimated GFR > 60.0 (>60) mL/min BUN/Creatinine Ratio 34.8 H (6-22) Glucose 97 (80-110) mg/dL Calcium 9.0 (8.4-10.2) mg/dL Total Bilirubin 0.8 (0.2-1.3) mg/dL AST 40 (17-59) IU/L ALT 22 (<50) IU/L Alkaline Phosphatase 81 (38-126) U/L Total Protein 7.2 (6.3-8.2) g/dL Albumin 4.2 (3.5-5.0) g/dL Globulin 3.0 (1.7-4.1) g/dL Albumin/Globulin Ratio 1.4 (1.0-2.8) Lipase 42 (23-300) U/L Imaging Data CT scan - abdomen/pelvis: Radiologist's Impression: [address] [id number] Scan ReportSigned Patient: Theodore Rhoades [facility]#: [id number]: 5Acct:[id number]/Sex: 75 / MDate of Service: 09/14/20Loc: EDAccession Number: [id number] Procedure: CT abdomen pelvis w con Ordering Provider: Stevenson Kidd D.O. PROCEDURE: CT ABDOMEN PELVIS W CON INDICATIONS: Left-sided abdominal pain TECHNIQUE: After the administration of intravenous contrast, 5 mm thick sections acquired from the diaphragm to the symphysis. 5 mm coronal and sagittal reformats were acquired. For radiation dose reduction, the following was used: automated exposure control, adjustment of mA and/or kV according to patient size. COMPARISON: [facility], CT, CT CHEST ABD PEL W CON, 08/19/2018, 10:44. [facility], CT, CT ABDOMEN W CON, 03/10/2019, 13:55. FINDINGS: Image quality: Excellent. ABDOMEN: Lung bases: Lung bases are clear. Mild bibasilar pulmonary fibrosis again noted. Heart size is normal. Solid organs: Liver is normal in size and enhancement. Gallbladder is unremarkable.. Biliary system is non dilated. Pancreas enhances normally. Interval splenectomy. No adrenal nodules. Kidneys demonstrate normal size and enhancement, without hydronephrosis. Peritoneum and bowel: Bowel loops demonstrate normal wall thickness and caliber. No free fluid or air. Sigmoid diverticulosis without evidence of diverticulitis. Nodes and vessels: No retroperitoneal or mesenteric adenopathy by size criteria. Shotty periaortic lymph nodes are stable. There is also shotty stable left common iliac adenopathy. There is slight interval enlargement of portacaval and periportal lymph nodes. On current image 29/3 there is a 0.9 x 2.2 cm lymph node which was previously 0.6 x 1.0 cm. On current image 25/3 is a periportal lymph node which measures 1.0 x 1.8 cm. It previously measured approximately 0.4 x 1.1 cm. There has been interval growth of a small left pelvic sidewall lymph node which previously measured 0.6 x 0.4 cm and now measures 1.0 x 1.5 cm. On image 69/3, a right pelvic sidewall lymph node has developed measuring 0.7 x 1.2 cm. Aorta and inferior vena cava are normal in size. Miscellaneous: No ventral hernias. PELVIS: Genitourinary: Enlarged prostate. Diffuse bladder wall thickening. Miscellaneous: No inguinal hernias or adenopathy. Small shotty bilateral inguinal lymph nodes. Bones: No suspicious bony lesions. No vertebral body compression fractures. IMPRESSION: 1. Interval splenectomy. 2. Stable shotty periaortic and left common iliac adenopathy. 3. Interval increase in the size of periportal lymph nodes, which are not abnormal by size criteria. 4. Interval enlargement of a left pelvic sidewall lymph node and development of a right pelvic sidewall lymph node. These are also not suspicious by size criteria. 5. Enlarged prostate with associated bladder wall thickening 6. Mild bibasilar pulmonary fibrosis. Dictated by: Jamir Montiel M.D. on 09/14/2020 at 12:26 Approved by: Jamir Montiel M.D. on 09/14/2020 at 12:40 MDM Narrative Medical decision making narrative: Patient has a benign exam here in the emergency department but he does admit that he is not having any symptoms at the time my evaluation. Has a leukocytosis but this is not new for him. His CT scan shows sporadic lymphadenopathy but no other signs of infection or surgical issue. No fevers. Feel we can hold on further workup for now. Patient was informed of all of the findings on his labs and CT scan today. He is going to contact his primary provider for a follow-up. He was given return precautions. He expressed understanding and agreement. Discharge Plan Departure Patient Disposition: Home Clinical Impression: Abdominal pain Instructions: DI for Abdominal Pain-Adult Activity Restrictions/Additional Instructions: Keep all of your scheduled medical appointments and continue all of your medic ations as directed. Contact your primary provider for follow-up. Return to the emergency department for any new or worsening symptoms Prescriptions: No Action atorvastatin 20 mg Tablet 20 mg PO DAILY RF: 0 nitroglycerin 0.4 mg Tablet, Sublingual 0.4 mg SUBLINGUAL Q5-15M PRN (Reason: Pain, Moderate) RF: 0 naproxen sodium [Aleve] 220 mg Tablet 220 mg PO BID PRN (Reason: Stomach Upset) RF: 0 aspirin 81 mg Tablet,Delayed Release (Dr/Ec) 81 mg DAILY RF: 0 multivitamin Capsule 1 cap PO DAILY RF: 0 metoprolol succinate 50 mg Tablet Extended Release 24 Hr 50 mg PO DAILY RF: 0 cholecalciferol (vitamin D3) [Vitamin D3] 25 mcg (1,000 unit) Tablet 25 mcg PO DAILY RF: 0 Referrals: Alfred Solis MD [Primary Care Provider] -
--- NOTE | 2020-09-14 11:41 | PC.NURSE ---
Pt is on BB and states that his HR is normally low
[2020-09-14] MEDS: SODIUM CHLORIDE 0.9% 1,000 ML 1000 ML IV (11:46)
[2020-09-14 11:49] LABS: Alanine Aminotransferase 22 IU/L (<50); Albumin 4.2 g/dL (3.5-5.0); Albumin Globulin Ratio 1.4 (1.0-2.8); Alkaline Phosphatase 81 U/L (38-126); Aspartate Aminotransferase 40 IU/L (17-59); BUN Creatinine Ratio 34.8 (6-22); Bilirubin Total 0.8 mg/dL (0.2-1.3); Blood Urea Nitrogen 24 mg/dL (9-20); Carbon Dioxide 31 mmol/L (22-32); Chloride 101 mmol/L (98-107); Estimated Glomerular Filt Rate > 60.0 mL/min (>60); Glucose 97 mg/dL (80-110); HEMOLYSIS < 15 (0-50); Lipase 42 U/L (23-300); Potassium 4.5 mmol/L (3.4-5.1); Sodium 135 mmol/L (137-145); Total Protein 7.2 g/dL (6.3-8.2)
[2020-09-14 11:53] LABS: Hemoglobin 10.8 g/dL (13.5-17.5); Mean Corpuscular HGB Conc 32.8 % (30-36); Mean Corpuscular Hemoglobin 32.9 PG (26-34); Mean Corpuscular Volume 100.3 fL (80-100); Platelet Count 192 X10^3/uL (150-400); Red Blood Cell Count 3.28 X10^6/uL (4.5-5.9); Red Cell Distribution Width 18.8 % (11.6-14.8); White Blood Cell Count 25.6 X10^3/uL (4.5-11.0)
[2020-09-14 11:57] LABS: Add Manual Diff / Slide Review YES
--- NOTE | 2020-09-14 12:10 | DI.CT.S_ITS ---
PROCEDURE: CT ABDOMEN PELVIS W CON INDICATIONS: Left-sided abdominal pain TECHNIQUE: After the administration of intravenous contrast, 5 mm thick sections acquired from the diaphragm to the symphysis. 5 mm coronal and sagittal reformats were acquired. For radiation dose reduction, the following was used: automated exposure control, adjustment of mA and/or kV according to patient size. COMPARISON: [facility], CT, CT CHEST ABD PEL W CON, 08/19/2018, 10:44. [facility], CT, CT ABDOMEN W [facility], 03/10/2019, 13:55. FINDINGS: Image quality: Excellent. ABDOMEN: Lung bases: Lung bases are clear. Mild bibasilar pulmonary fibrosis again noted. Heart size is normal. Solid organs: Liver is normal in size and enhancement. Gallbladder is unremarkable.. Biliary system is non dilated. Pancreas enhances normally. Interval splenectomy. No adrenal nodules. Kidneys demonstrate normal size and enhancement, without hydronephrosis. Peritoneum and bowel: Bowel loops demonstrate normal wall thickness and caliber. No free fluid or air. Sigmoid diverticulosis without evidence of diverticulitis. Nodes and vessels: No retroperitoneal or mesenteric adenopathy by size criteria. Shotty periaortic lymph nodes are stable. There is also shotty stable left common iliac adenopathy. There is slight interval enlargement of portacaval and periportal lymph nodes. On current image 29/3 there is a 0.9 x 2.2 cm lymph node which was previously 0.6 x 1.0 cm. On current image 25/3 is a periportal lymph node which measures 1.0 x 1.8 cm. It previously measured approximately 0.4 x 1.1 cm. There has been interval growth of a small left pelvic sidewall lymph node which previously measured 0.6 x 0.4 cm and now measures 1.0 x 1.5 cm. On image 69/3, a right pelvic sidewall lymph node has developed measuring 0.7 x 1.2 cm. Aorta and inferior vena cava are normal in size. Miscellaneous: No ventral hernias. PELVIS: Genitourinary: Enlarged prostate. Diffuse bladder wall thickening. Miscellaneous: No inguinal hernias or adenopathy. Small shotty bilateral inguinal lymph nodes. Bones: No suspicious bony lesions. No vertebral body compression fractures. IMPRESSION: 1. Interval splenectomy. 2. Stable shotty periaortic and left common iliac adenopathy. 3. Interval increase in the size of periportal lymph nodes, which are not abnormal by size criteria. 4. Interval enlargement of a left pelvic sidewall lymph node and development of a right pelvic sidewall lymph node. These are also not suspicious by size criteria. 5. Enlarged prostate with associated bladder wall thickening 6. Mild bibasilar pulmonary fibrosis. Dictated by: Jamir Montiel M.D. on 09/14/2020 at 12:26 Approved by: Jamir Montiel M.D. on 09/14/2020 at 12:40
[2020-09-14 12:25] LABS: Neutrophils Absolute Manual 1792 /uL (3000-5900); Total Cells Counted 100
[2020-09-14 12:27] LABS: Anisocytosis 2+; Hypochromasia 1+; Poikilocytosis 1+
== END 2020-09-14 13:08 | disposition home or self-care (01) ==
PROVIDERS: Emergency Provider Emergency Medicine; PCP Family Medicine
DX: R10.9 Unspecified abdominal pain (principal); Z85.72 Personal history of non-Hodgkin lymphomas; Z90.81 Acquired absence of spleen
CPT/HCPCS: 36415; 74177; 80053; 83690; 85007; 85025; 96360; 99283; 99284; Q9967

== ENCOUNTER → 2021-02-19 11:00 | Outpatient (CLI) | payer OTHER, SELFPAY ==
[2021-02-19 12:38] LABS: Hematocrit 31.9 % (41-53); Hemoglobin 10.3 g/dL (13.5-17.5); Mean Corpuscular HGB Conc 32.4 % (30-36); Mean Corpuscular Hemoglobin 32.2 PG (26-34); Mean Corpuscular Volume 99.3 fL (80-100); Platelet Count 175 X10^3/uL (150-400); Red Blood Cell Count 3.21 X10^6/uL (4.5-5.9); Red Cell Distribution Width 21.4 % (11.6-14.8); White Blood Cell Count 21.4 X10^3/uL (4.5-11.0)
[2021-02-19 12:39] LABS: Add Manual Diff / Slide Review YES
[2021-02-19 12:41] LABS: BUN Creatinine Ratio 28.6 (6-22); Blood Urea Nitrogen 22 mg/dL (9-20); Calcium 9.3 mg/dL (8.4-10.2); Carbon Dioxide 28 mmol/L (22-32); Chloride 104 mmol/L (98-107); Cholesterol 137 mg/dL (140-199); Estimated Glomerular Filt Rate > 60.0 mL/min (>60); Glucose 97 mg/dL (80-110); HDL Cholesterol 40 mg/dL (40-60); HEMOLYSIS < 15 (0-50); LDL Cholesterol Calculated 84 mg/dL (<100); Potassium 4.9 mmol/L (3.4-5.1); Sodium 137 mmol/L (137-145); Triglycerides 67 mg/dL (35-150)
[2021-02-19 13:21] LABS: Neutrophils Absolute Manual 3424 /uL (3000-5900); Nucleated Red Blood Cells 1 #/Diff; Total Cells Counted 100
[2021-02-19 13:23] LABS: Hypochromasia 1+; Target Cells 2+
== END ==
PROVIDERS: PCP Family Medicine; Referring Provider Internal Medicine Cardiovascular Disease; Visit Provider Internal Medicine Cardiovascular Disease
DX: I25.10 Atherosclerotic heart disease of native coronary artery without angina pectoris (principal)
CPT/HCPCS: 36415; 80048; 80061; 85007; 85025

== ENCOUNTER 2021-11-17 12:43 | Emergency (ER) | payer OTHER, SELFPAY ==
[2021-11-17 12:43] VITALS: BP 165/77; PULSE 50; RESP 18; TEMP 36.5; O2SAT 99; BMI 26.1
[2021-11-17 12:48] VITALS: PULSE 56; O2SAT 99
[2021-11-17 12:49] VITALS: PULSE 50; O2SAT 99
[2021-11-17 12:59] VITALS: BP 165/72; PULSE 49; O2SAT 99
[2021-11-17 13:00] VITALS: PULSE 50; O2SAT 99
--- NOTE | 2021-11-17 13:05 | ED.GENADULT ---
HPI - General Adult General Chief complaint: Dental/Oral Stated complaint: Sore throat post oral surgery Time Seen by Provider: 11/17/21 12:48 Source: patient Mode of arrival: Ambulatory Limitations: no limitations History of Present Illness HPI narrative: 76-year-old male who is here for evaluation of a sore throat and left-sided jaw pain. Approximately 1 week ago he had a left sided lower impacted 3rd molar removed in [place]. He was placed on an antibiotic and anti-inflammatories. He showed me a picture of these medications and appears to be dicloxacillin and ketorolac. He has finished these medications. He arrives today for continued discomfort, sore throat specifically with swallowing, some swelling on the left side of his throat which currently is somewhat improved from its highest intensity discomfort. No problems breathing. Rashes. Related Data Home Medications Medication Instructions Recorded Confirmed nitroglycerin 0.4 mg sublingual 0.4 mg SUBLINGUAL Q5-15M PRN 04/13/18 01/25/21 tablet naproxen sodium 220 mg tablet 220 mg PO BID PRN 08/21/18 01/25/21 (Aleve) aspirin 81 mg tablet,delayed 81 mg DAILY 05/20/19 01/25/21 release multivitamin 1 cap PO DAILY 05/20/19 01/25/21 cholecalciferol (vitamin D3) 25 25 mcg PO DAILY 05/25/20 01/25/21 mcg (1,000 unit) tablet (Vitamin D3) metoprolol succinate 50 mg 50 mg PO DAILY 05/25/20 01/25/21 tablet,extended release 24 hr rosuvastatin 40 mg tablet 40 mg PO DAILY 01/25/21 01/25/21 Previous Rx's Medication Instructions Recorded clindamycin HCl 300 mg capsule 300 mg PO Q6H 7 Days #28 cap 11/17/21 hydrocodone 5 mg-acetaminophen 325 1 tab PO Q4-6H PRN #10 tab 11/17/21 mg tablet Allergies Allergy/AdvReac Type Severity Reaction Status Date / Time oxycodone Allergy Mild itching Verified 09/14/20 11:34 Review of Systems Constitutional Constitutional: Reports system reviewed and no additional complaints, except as documented ENT Ears, Nose, Mouth, and Throat: Reports system reviewed and no additional complaints, except as documented and Reports as per HPI Respiratory Respiratory: Reports as per HPI and Reports system reviewed and no additional complaints, except as documented Integumentary/Breasts Skin/Breast: Reports system reviewed and no additional complaints, except as documented and Reports as per HPI Hematologic/Lymphatic On Anticoagulants: No Patient History Medical History (Updated 11/17/21 @ 13:17 by Stevenson Kidd DO) A-fib Diarrhea Distal radius fracture, left Social History household members: spouse Smoking Status: Former smoker Smoking Status: Former smoker alcohol intake frequency: 0-2 drinks per day Substance Use Type: does not use Exam Initial Vital Signs Initial Vital Signs: Vital Signs Temperature 97.7 F 11/17/21 12:43 Pulse Rate 50 L 11/17/21 12:43 Respiratory Rate 18 11/17/21 12:43 Blood Pressure 165/77 H 11/17/21 12:43 Pulse Oximetry 99 11/17/21 12:43 Const General: cooperative, comfortable, well developed and well groomed HENMT Head: normal to inspection Ears: TM's normal bilaterally Face and sinus: normal facial exam and no erythema Mouth: lip normal, tongue normal and moist mucous membranes Throat: posterior oropharynx normal Other HENMT:: On the lower inner buccal surface there appears to be a solid white mass that is sticking through the gingiva. Most consistent with a piece of a tooth. There are no pustules. No fluctuance. Neck Lymphatic: No lymphadenopathy Resp Effort & Inspection: normal respiratory effort Skin General: no rashes or lesions noted Neuro General: patient alert, patient awake and moves all extremities Extrem General: normal to inspection and capillary refill normal Course Orders Ordered: Discontinued Medications Hydrocodone Bitart/Acetaminophen (Hydrocodone/Acet 5/325 Tablet) 1 tab PO NOW ONE Stop: 11/17/21 13:06 Vital Signs Vital signs: Vital Signs - 8 hr 11/17/21 12:43 Temperature 97.7 F Pulse Rate 50 L Respiratory Rate 18 Blood Pressure 165/77 H Pulse Oximetry 99 Medical Decision Making [facility] Narrative Medical decision making narrative: There is no signs of any infection based on his exam today. The 2 stitches that are consistent with his wisdom tooth removal are in place. There is no fluctuance in this area. No pustules. No abscess. No lymphadenopathy. Patient tolerating secretions. No signs of strep throat or other oropharyngeal infections. I suspect that his discomfort is related to his procedure that he just had. There is a white solid piece of what appears to be a tooth sticking in from the medial side of the left lower gingiva. Concerned that this may be a retained piece of his 3rd molar. It does not appear to be an abscess. Plan will be is to discharge patient home on pain medication. I have no definitive reason to start him on antibiotics however he does have a history of CLL and in an effort to keep him from needing another emergency department visit I will send him home with a prescription for antibiotics although he is not going to fill this prescription. He is going to wait and will started if he starts to develop new symptoms, worsening symptoms fevers etc.. Will have him follow-up with his personal dentist on also given contact information for local oral maxillofacial. He expressed understanding and agreement. Discharge Plan Departure Patient Disposition: Home Clinical Impression: Pain, dental Instructions: DI for Dental Pain Activity Restrictions/Additional Instructions: Take the pain medication as directed. Also recommend that you continue with an anti-inflammatory such as Motrin/Naprosyn. I do recommend you contact your dentist on Friday and also contact the Oral maxillofacial surgeon at the number provided below for follow-up. If you start to develop fevers or worsening symptoms please start taking the antibiotics as directed otherwise hold on this medication until you follow-up with a oral medicine provider. Prescriptions: New hydrocodone-acetaminophen 5-325 mg tablet 1 tab PO Q4-6H PRN (Reason: pain) Qty: 10 0RF clindamycin HCl 300 mg capsule 300 mg PO Q6H 7 Days Qty: 28 0RF No Action nitroglycerin 0.4 mg Tablet, Sublingual 0.4 mg SUBLINGUAL Q5-15M PRN (Reason: Pain, Moderate) 0RF naproxen sodium [Aleve] 220 mg Tablet 220 mg PO BID PRN (Reason: Stomach Upset) 0RF aspirin 81 mg Tablet,Delayed Release (Dr/Ec) 81 mg DAILY 0RF multivitamin Capsule 1 cap PO DAILY 0RF metoprolol succinate 50 mg Tablet Extended Release 24 Hr 50 mg PO DAILY 0RF cholecalciferol (vitamin D3) [Vitamin D3] 25 mcg (1,000 unit) Tablet 25 mcg PO DAILY 0RF rosuvastatin 40 mg Tablet 40 mg PO DAILY 0RF Referrals: Alfred Solis MD [Primary Care Provider] -
[2021-11-17] MEDS: HYDROCODONE/ACET 5/325 TABLET 1 TAB PO (13:17)
== END 2021-11-17 14:04 | disposition home or self-care (01) ==
PROVIDERS: Emergency Provider Emergency Medicine; PCP Family Medicine
DX: K08.89 Other specified disorders of teeth and supporting structures (principal); Z98.818 Other dental procedure status
CPT/HCPCS: 99283

== ENCOUNTER → 2022-02-12 08:29 | Outpatient (CLI) | payer OTHER, SELFPAY ==
[2022-02-12 09:53] LABS: Add Manual Diff / Slide Review YES; Hematocrit 31.5 % (41-53); Hemoglobin 10.4 g/dL (13.5-17.5); Mean Corpuscular HGB Conc 33.1 % (30-36); Mean Corpuscular Hemoglobin 31.4 PG (26-34); Mean Corpuscular Volume 94.8 fL (80-100); Platelet Count 190 X10^3/uL (150-400); Red Blood Cell Count 3.32 X10^6/uL (4.5-5.9); White Blood Cell Count 20.7 X10^3/uL (4.5-11.0)
[2022-02-12 10:18] LABS: Neutrophils Absolute Manual 2691 /uL (3000-5900); Target Cells 1+; Total Cells Counted 100
[2022-02-12 10:19] LABS: Anisocytosis 2+; Hypochromasia 1+; Poikilocytosis 1+
[2022-02-12 10:28] LABS: BUN Creatinine Ratio 30.7 (6-22); Blood Urea Nitrogen 27 mg/dL (9-20); Calcium 8.6 mg/dL (8.4-10.2); Carbon Dioxide 29 mmol/L (22-32); Chloride 102 mmol/L (98-107); Cholesterol 103 mg/dL (140-199); Estimated Glomerular Filt Rate > 60 mL/min (>60); Glucose 95 mg/dL (80-110); HDL Cholesterol 34 mg/dL (40-60); HEMOLYSIS < 15 (0-50); LDL Cholesterol Calculated 57 mg/dL (<100); Potassium 4.9 mmol/L (3.4-5.1); Sodium 137 mmol/L (137-145); Triglycerides 60 mg/dL (35-150)
== END ==
PROVIDERS: PCP Family Medicine; Referring Provider Internal Medicine Cardiovascular Disease; Visit Provider Internal Medicine Cardiovascular Disease
DX: Z95.5 Presence of coronary angioplasty implant and graft (principal)
CPT/HCPCS: 36415; 80048; 80061; 85007; 85025

== ENCOUNTER → 2022-04-24 09:39 | Outpatient (CLI) | payer OTHER, SELFPAY ==
--- NOTE | 2022-04-24 09:40 | DI.US.S_ITS ---
PROCEDURE: US SOFT TISSUE HEAD AND NECK INDICATIONS: swelling neck lymph nodes. h/o marginal zone lymphoma TECHNIQUE: Real-time scanning was performed of the neck region of interest, with image documentation. COMPARISON: [facility], CT, CT CHEST ABD PEL W CON, 08/19/2018, 10:44. [facility], CT, CT SOFT TISSUE NECK W CON, 03/31/2018, 15:44. FINDINGS: Multiple grayscale and color Doppler images of the neck were acquired. There are multiple prominent lymph nodes noted along the inferior aspect of the left neck, lateral to the common carotid artery and left internal jugular vein and superior to the left clavicle/subclavian vessels. These demonstrate loss of normal fatty hilum. Some with thickened cortices. The largest 3 were measured. Lymph node labeled 1 measures 1.1 x 1.0 x 0.7 cm. Lymph node labeled 2 is irregular and measures 1.8 x 1.1 x 1.2 cm. Lymph node labeled 3 demonstrates thickened cortex and measures 1.5 x 1.1 x 0.8 cm. No suspicious lymph nodes seen on the right. IMPRESSION: Multiple prominent, abnormal appearing left cervical chain lymph nodes with the largest nodes noted lateral to the left common carotid artery /left internal jugular vein and superior to the left clavicle/ subclavian vessels. Consider follow-up imaging versus further evaluation with ultrasound-guided fine-needle aspiration or biopsy. Dictated by: Gumaro Orellana M.D. on 04/24/2022 at 12:47 Approved by: Gumaro Orellana M.D. on 04/24/2022 at 12:59
== END ==
PROVIDERS: PCP Family Medicine; Referring Provider Internal Medicine Hematology & Oncology; Visit Provider Internal Medicine Hematology & Oncology
DX: C85.89 Other specified types of non-Hodgkin lymphoma, extranodal and solid organ sites (principal); R59.1 Generalized enlarged lymph nodes
CPT/HCPCS: 76536

== ENCOUNTER → 2022-06-03 09:44 | Outpatient (CLI) | payer OTHER, SELFPAY ==
--- NOTE | 2022-06-03 09:46 | DI.RAD.S_ITS ---
PROCEDURE: XR LUMBAR SPINE MIN 4V INDICATIONS: BACK AND RIGHT HIP PAIN TECHNIQUE: 5 views of the lumbar spine were acquired, including bilateral oblique views. COMPARISON: None. FINDINGS: Bones: 5 nonrib-bearing vertebrae are present. There is 4 mm anterolisthesis of L4 on L5 and 8 mm retrolisthesis of L2 on L3. 4 mm retrolisthesis of L1 on L2 is also noted. Loss of disc height, degenerative endplate changes and bilateral facet arthrosis throughout lumbar spine is seen. No vertebral body compression fractures. No suspicious bony lesions. Soft tissues: Overlying bowel gas pattern is normal. No suspicious soft tissue calcifications. Oblique images: No gross pars defects. IMPRESSION: Degenerative disc disease throughout lumbar spine with likely degenerative spondylolisthesis at L1-2, L2-3 and L4-5 levels as above. No gross pars defects. No acute vertebral body compression fracture. Dictated by: Tyrell Duckworth M.D. on 06/03/2022 at 10:26 Approved by: Tyrell Duckworth M.D. on 06/03/2022 at 10:28
--- NOTE | 2022-06-03 16:32 | DI.RAD.S_ITS ---
PROCEDURE: XR HIP W PEL IF DONE KEVIN MIN 4V INDICATIONS: Right hip pain TECHNIQUE: AP pelvis with lateral view(s) of the right hip(s). COMPARISON: [facility], CT, CT ABDOMEN PELVIS W CON, 09/14/2020, 12:08. FINDINGS: Bones: There is a moderately displaced, mildly impacted fracture seen of the subcapital right femoral neck. Mild sclerosis can be seen along the fracture line. Generalized degenerative changes are seen, including involving the visualized lower lumbar spine. Soft tissues: The visualized bowel gas pattern is normal. No suspicious soft tissue calcifications. IMPRESSION: Moderately displaced right subcapital neck fracture. Dictated by: Edmar Selby M.D. on 06/03/2022 at 16:05 Approved by: Edmar Selby M.D. on 06/03/2022 at 16:06
== END ==
PROVIDERS: PCP Family Medicine; Referring Provider Physical Medicine & Rehabilitation; Visit Provider Physical Medicine & Rehabilitation
DX: S72.011A Unspecified intracapsular fracture of right femur, initial encounter for closed fracture (principal); M51.36 Other intervertebral disc degeneration, lumbar region; M16.11 Unilateral primary osteoarthritis, right hip; M25.551 Pain in right hip; M54.9 Dorsalgia, unspecified
CPT/HCPCS: 72110; 73522; 99214

== ENCOUNTER → 2022-06-10 11:37 | Outpatient (CLI) | payer OTHER, SELFPAY ==
--- NOTE | 2022-06-10 11:39 | DI.MRI.S_ITS ---
PROCEDURE: MR LUMBAR SPINE WO CON INDICATIONS: LBP with Right hip pain TECHNIQUE: Noncontrast sagittal T1 spin echo and T2 fast echo, sagittal STIR, and T2 fast spin echo through the lumbar spine. In cases with scoliosis, additional coronal T2 fast spin echo may be performed. COMPARISON: [facility], CR, XR LUMBAR SPINE MIN 4V, 06/03/2022, 9:48. [facility], CT, CT ABDOMEN PELVIS W CON, 09/14/2020, 12:08. FINDINGS: Image quality: Excellent. Alignment and Curvature: There is normal bony alignment. Bone Marrow: Low T1 marrow signal present throughout the exam with increased STIR signal. Paraspinal mass lesion. Spinal Cord: Conus medullaris terminates at the L1 level. Visualized cord demonstrates normal signal and size. Paraspinous Soft Tissues: No paravertebral masses. T12-L1: Disc space narrowing and circumferential disc bulge with mild central stenosis. Mild foraminal stenosis L1-L2: Disc space narrowing with circumferential disc bulge results in mild central stenosis. Moderate right and no left foraminal stenosis L2-L3: Disc space narrowing with circumferential disc bulge and hypertrophic facet joints results in moderate central stenosis. Moderate bilateral foraminal stenosis L3-L4: Disc space narrowing with circumferential disc bulge and hypertrophic facet joints results in moderate central stenosis. Mild right and moderate left foraminal stenosis L4-L5: Disc space narrowing with circumferential disc bulge and hypertrophic facet joints results in moderate to severe central stenosis. Severe left moderate right foraminal stenosis L5-S1: Disc space narrowing and circumferential disc bulge without central stenosis. Moderate bilateral foraminal stenosis IMPRESSION: 1. Generalized decreased T1 marrow signal throughout the exam. While this could reflect red marrow conversion from anemia, metastatic marrow replacement would be a differential. Consider follow-up bone scan 2. Multilevel degenerative disc disease and arthropathy results in varying degrees of central and foraminal stenosis including moderate to severe central and severe left foraminal stenosis at L4-5 And Approved by: Joe Morrow M.D. on 06/10/2022 at 15:01
== END ==
PROVIDERS: PCP Family Medicine; Referring Provider Physical Medicine & Rehabilitation; Visit Provider Physical Medicine & Rehabilitation
DX: M51.16 Intervertebral disc disorders with radiculopathy, lumbar region (principal); M47.26 Other spondylosis with radiculopathy, lumbar region; M48.061 Spinal stenosis, lumbar region without neurogenic claudication
CPT/HCPCS: 72148

== ENCOUNTER 2022-06-14 06:15 | Inpatient (IN) | payer OTHER, SELFPAY ==
[2022-06-14] VITALS (12 sets, daily range): BP systolic 99–149; BP diastolic 43–82; PULSE 49–74; RESP 14–20; TEMP 36–36.8; O2SAT 95–100; BMI 26.6; BMI 26.9
--- NOTE | 2022-06-14 | DI.RAD.S_ITS ---
PROCEDURE: XR PELVIS 1-2V INDICATIONS: INTRA OP FILM TECHNIQUE: Intra-operative view of the pelvis and hip acquired. COMPARISON: None. FINDINGS: The femoral component of a hip arthroplasty is present. No periprosthetic fracture identified on the single view. Overlying soft tissue gas consistent with recent/ongoing surgery. IMPRESSION: Intraprocedural radiography was provided for guidance and anatomical localization. Please see the procedure report for further details. Dictated by: Héctor Mike M.D. on 06/14/2022 at 9:40 Approved by: Héctor Mike M.D. on 06/14/2022 at 9:43
--- NOTE | 2022-06-14 06:00 | DI.RAD.S_ITS ---
PROCEDURE: XR HIP W PEL IF DONE RT 2V INDICATIONS: postop TECHNIQUE: AP pelvis and lateral view of the left hip acquired. COMPARISON: [facility], CR, XR PELVIS WITH LATERAL HIP RIGHT, 06/10/2022, 16:55. [facility], CR, XR PELVIS 1-2V, 06/14/2022, 9:00. [facility], CR, XR HIP W PEL IF DONE KEVIN 3TO4V, 06/03/2022, 16:36. FINDINGS: Bones: Patient is status post right hip hemiarthroplasty, with hardware components in expected positions. The hip joint appears congruent. The visualized bony structures appear intact. Soft tissues: Overlying postoperative changes are noted. No suspicious soft tissue densities. IMPRESSION: Status post right hip arthroplasty with expected postoperative findings. Approved by: Héctor Metzger M.D. on 06/14/2022 at 11:59
[2022-06-14] MEDS: ACETAMINOPHEN 325 MG TABLET 975 MG PO (06:49)
[2022-06-14] MEDS: PREGABALIN 75 MG CAPSULE PO (06:49)
[2022-06-14] MEDS: LACTATED RINGERS 1,000 ML 42 ML IV (06:57)
[2022-06-14 07:18] LABS: COVID19 -Nasal RAPID Negative (Negative)
[2022-06-14] MEDS: CEFAZOLIN 2 GM/100 ML PREMIX 100 ML IV ×3 (07:55→23:35)
[2022-06-14] MEDS: TRANEXAMIC ACID 1,000 MG VIAL 1000 MG INJ ×2 (08:10→10:13)
--- NOTE | 2022-06-14 08:35 | SUR.OPER ---
Lateral on padded OR bed. Gel axillary roll. Arms secured on padded armboard with pillow supporting top arm. Padded hip positioner braces x4 - anterior and posterior chest and pelvis. Additional gel pad used anterior pelvis. Gel pad under bottom leg from knee to foot and secured with tape over sheet.
[2022-06-14] MEDS: BUPIVACAINE 0.25% (PF) 60 ML, EPINEPHrine 0.3 MG INJ (08:42)
[2022-06-14] MEDS: BUPIVACAINE LIPOSOME 266 MG/20 ML VIAL INJ (08:43)
--- NOTE | 2022-06-14 10:21 | PM.PREOP ---
Pre-operative Note COVID-19 COVID-19 status: Negative Result date/Date tested (Pos, Neg/Pending): 06/14/22 Criteria for continued procedure: Expected advancement of disease process Interval Note History & Physical reviewed/Exam performed by Physician: Yes Changes to H&P: No
--- NOTE | 2022-06-14 11:32 | PM.OP.1 ---
Operative Date/Time/Diagnoses Date of procedure: 06/14/22 Time of procedure: 11:32 Pre-op diagnosis: Closed fracture femoral neck right S72.001A Post-op diagnosis: same Procedure & Clinicians Procedure: Hemiarthroplasty-endoprosthesis right hip for right hip femoral neck fracture CPT code 63748 Same procedure as scheduled: Yes Indications: Patient is a 77-year-old male that had a fall several months ago on his boat onto his side. Had persistent hip pain and a severe limp that has been getting worse. He also has a history of severe lower back pain problems and sciatica. He eventually had an x-ray and it was demonstrated to have a subacute femoral neck fracture. He was indicated for surgery. Due to the moderate displacement and age of the fracture he was indicated for endoprosthesis. The risks and benefits of the procedure have been discussed with the patient and given the opportunity to ask questions. The risks of surgery include but are not limited to infection, malunion, nonunion, persistence of pain, damage to nerves and blood vessels, posttraumatic arthritis, DVT, PE, coardiopulmonary complications and . The patient expressed a thorough understanding of the risks and benefits of surgery and has elected to proceed. Consent was signed. During the operation, the services of a physician surgical physician assistant were medically indicated and necessary to provide the exposure of the operative site for the surgical procedure and to maintain the limb in a proper position to carry out the operation safely and efficiently. Without a qualified kindergarten teacher assistant being present this would extended the operative procedure and made the procedure technically more difficult to perform. Surgeon: Lisa Ventura Mobile Web Application Developer: Pearl Salcedo Anesthesia Type: General, Spinal and Local Operative Notes Findings: Subacute femoral neck fracture, right Closure Type: primary Specimen(s): none sent Prosthetic devices, grafts, tissues, transplants, or devices: Salcedo [employer] Nephew Synergy cemented femoral stem size 12 high offset Tandem unipolar sleeve neck +4 (07/03) Unipolar 52 mm head cobalt chromium 10 mm distal centralizer Small canal restrictor Estimated Blood Loss (mL): 200 Tourniquet time (min): 0 Procedure in detail: Hemiarthroplasty for femoral neck fracture CPT code 27864. Patient was seen in the preoperative area the site of surgery was marked and informed consent confirmed. The patient was brought back to the operating room by the anesthesia team. Patient was positioned supine on the operative table. General anesthetic was administered. Patient was then moved into the lateral position. The hip synthetic filament spinner positioner pads were then placed. A well-padded axillary roll was placed and the arms were appropriately positioned. The affected (right) lower extremity was prepped and draped from the ankle to the iliac crest with ChloraPrep in the standard fashion sterile drapes were placed. Formal time-out procedure was performed confirming the patient's side and site of surgery, presence of informed consent, administration of appropriate preoperative antibiotics. Hip was approached through a standard posterior approach. Dissection was carried down through the skin and subcutaneous tissues sharply through the skin and then with the Bovie through the subcutaneous tissues. The fascia valeri was exposed and opened. Fascia was opened using the Bovie and the gluteus golden was spread with finger retraction. The Charnley retractor was placed. The inflamed bursa was resected. The piriformis was then identified. A Cobra retractor was placed under the gluteus medius to help expose the external rotators. The piriformis and short external rotators were tagged with a 2 Ethibond and divided of the trochanter. These were then retracted posteriorly to protect sciatic nerve. Aqua Mantis was used for hemostasis. The femur was then flexed and internally rotated to present the femoral neck and the fracture. Subacute fracture. The lesser trochanter was felt and the desired neck cut was marked. Reset saw was used to make the neck cut. A corkscrew and a Lo were used to remove the femoral head from the acetabulum. This was measured to fit a 52 head-as this went to through to the equator. The femoral head went all the way through the 53 mm hole meaning that size was too large and 52 mm was appropriate. Next the femur was presented. A clean-up neck cut was made in a minimal fashion. The trial head size was trialed in the acetabulum. Attention was then turned to the femur. The canal was opened with a box cutting osteotome. This followed by the canal finer and a lateralizing Reamer. And curette extra lateral bone. The tapered reamers were then used up to a size 12. Then broaching was sequentially done up to a size 11. Trial components were placed. The patient was stable in the position of sleep, squatting and could be put through a range of motion with 70? of internal rotation without dislocation. This was felt to be appropriate. An intraop a AP pelvis x-ray was obtained to assess component position. This was a touch varus so additional lateralize ankle was completed and the canal was broached up to a 12 and a size 12 stem selected. This was trialed with a high offset neck and a +4 and 52 mm head then another intraop x-ray was taken confirming appropriate length alignment and offset. Final components were then selected. The final stem was a size 12. Femoral canal was prepared . The distal small restrictor was placed approximately 1 cm distal to the end of the planned implant. The bone was meticulously cleaned with pulse lavage. Canal was then packed with gauze. Two packages of cement were mixed and carefully pressurized into the femoral canal. The femoral component was then placed without difficulty. This was held in place until the cement hardened. The repeat trial reduction showed good range of motion and stability. The final head and neck were then carefully placed. The wound was irrigated. The capsule and muscular flap was repaired with the 2. Ethibond. Next the short external rotators were repaired to the greater trochanter through drill holes in the greater trochanter using the 2.5 drill and a Cardleyon suture Passer. These were tied with the leg in abduction. The wound was then irrigated again. The fascia valeri was closed with 0 Vicryl and the subcutaneous layer was closed with 2-0 Vicryl and the skin with priscila. An Aquacel dressing was placed. An abduction pillow was placed for protection. The drapes removed and the patient was taken to the recovery room in good condition. There no immediate complications from this procedure. All counts were correct. Postoperative AP pelvis x-ray was obtained in the PACU showed appropriate alignment of the cemented hip hemiarthroplasty with no evidence of fracture. Complications: none Post-operative Condition: stable Disposition: PACU Plan for aftercare: Weightbear as tolerated, posterior hip precautions. Aspirin 81 mg for DVT prophylaxis x6 weeks. Follow up in clinic in 2 weeks for staple removal.
--- NOTE | 2022-06-14 12:46 | PC.NURSE ---
Addendum entered by Arti Ly R.N. 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 states that they changed him to a gluten free diet and he did not do this anymore. Patient has went back to regular foods and states that this may be what is happening. 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 Diet just changed to gluten free. Original Note: Patients dressing to his r.hip is cdi, he has feeling to his full extremity and ppx2. He just ate some lunch and had a 100cc emesis. Patient states that he does have this problem from time to time. He denies nausea and refused any kind of nausea medication. Patients is at bedside. She is pleasant and helpful with patients care. Patient also denies any pain to his r.hip surgery.
[2022-06-14] MEDS: LACTATED RINGERS 1,000 ML 125 ML IV (12:57)
--- NOTE | 2022-06-14 14:21 | PT.IIE ---
Current Diagnoses Fracture of unspecified part of neck of right femur, initial encounter for closed fracture (06/14/22) Surgery Performed Operation Date: 06/14/22 07:45 Actual Procedures p Hip Hemiarthroplasty(Right) - Lisa Ventura MD Medical History (Last Updated 06/03/22 @ 18:18 by Eric Carrington DO) A-fib Degenerative joint disease of right hip Diarrhea Distal radius fracture, left Hip fx Lumbar radiculopathy Physical Therapy Inpatient Evaluation/Re-Eval M1 PT/OT-IP Prior Functional Status Start: 06/14/22 13:24 Freq: NEEDED Status: Active Protocol: Document 06/14/22 14:21 AW (Rec: 06/14/22 15:00 AW [id number]) Medical Review Prior Functional Status Medical History Reviewed Yes Communication Pt is an effective verbal communicator. Mobility and Gait Pt is independently mobile at baseline but somewhat limited by long-term sciatic pain on the right side. He fell on his boat in January, had right hip pain afterward, and used a SPC with a significant limp. He had hip and spine x-rays earlier this month related to his back pain with incidental finding of displaced right subcapital femoral neck fracture. Activities of Daily Living and IADL's Independent. Social History Household Members spouse Living Arrangements House Number of Floors (Floors) Two Floors Number of Stairs To Enter/Railing? Pt can stay on the main level. There are no stairs to enter the home. Home Environment Standard Height Toilet,Walk in Shower,Tub/Shower Home Equipment Four Wheel Walker,Straight Cane Employment Status Retired Additional Social History Comment Pt has suction grab bar in the shower. He has 4WW but no FWW . Pt lives in [place] with his , Opal. His is available and able to assist. M2 PT-IP Current Condition Start: 06/14/22 13:24 Freq: NEEDED Status: Active Protocol: Document 06/14/22 14:21 AW (Rec: 06/14/22 15:00 AW [id number]) Physical Therapy Current Condition Current Condition Evaluation Date 06/14/22 Treatment Diagnosis R hip hemiarthroplasty with posterior approach; difficulty in walking Onset Date 06/14/22 M3 PT-IP Subjective Start: 06/14/22 13:24 Freq: NEEDED Status: Active Protocol: Document 06/14/22 14:21 AW (Rec: 06/14/22 15:00 AW [id number]) Subjective Physical Therapy Visit Type Type Initial Evaluation Visit Start Time 13:48 Visit Stop Time 14:21 Total Visit Minutes 33 Notes Pt's spouse was present and attentive throughout evaluation. Physical Therapy Visit Comments Patient Comments Pt is willing to participate with PT Patient Goals Return home with spouse report . Eventually, return to boating Therapy Pain Assessment Pain When Pain Assessed During Mobility Pain Present Pain Present Pain Reported Location R hip Intensity 2 Scale Used Numeric (0 - 10) M4 PT-IP Mobility and Gait Start: 06/14/22 13:24 Freq: NEEDED Status: Active Protocol: Document 06/14/22 14:21 AW (Rec: 06/14/22 15:00 AW [id number]) PT-Bed Mobility Assessment Supine to Sit Supine to Sit Minimal Assistance Scooting Scooting to Edge of Bed Standby Assistance PT-Transfer Assessment Sit to and From Stand Sit to and from Stand Contact Guard Assistance,Use of Upper Extremities Equipment Transfer Assistive Device Gait Belt,Front Wheeled Walker Orthotic/Prosthetic Devices or Brace: No Transfers Transfer Destination Chair Transfer Technique pt ambulated with FWW Transfer Ability Level of Assist Contact Guard Assistance Comments Mobility Comments Pt was sitting up in bed as PT arrived. With HOB lowered, BP was 121/52 HR 52. Educated pt on posterior hip precautions, including sleep positioning and bed mobility. With cues and min A, pt sat up on the right side of the bed with good attention to precautions. He stood CGA and used FWW to transfer to the chair. Min verbal cues to maintain precautions during descent. Pt denied nausea or lightheadedness; VSS. He stood from the chair CGA and walked 30 feet around the room with FWW CGA. He returned to the chair. BP 114/45 HR 53. Pt was left with call light and tray table in reach. Gait Assessment Gait Gait Assistance Required: Contact Guard Assist Distance (Feet) 30 Able to Maintain Weight Bearing Status Yes During Gait Assistive Devices Assistive Device Gait Belt,Front Wheeled Walker Gait Deviations General Gait Pattern Antalgic,Step-to Gait Factors Limiting Gait Function Factors Limiting Gait Function Decreased Sensation,Decreased Strength,Pain Comments Gait Comments Pt had slight rightward trunk lean in RLE stance phase but responded well to cues for correction. Stair Climbing Assessment Comments Stair Climbing Comments Not assessed. Pt does not need to do stairs but requests instruction at next PT session . PT-Balance Assessment Sitting Balance and Reactions Static Sitting Balance Ability Normal Dynamic Sitting Balance Ability Normal Standing Balance and Reactions Static Standing Balance Ability Good Dynamic Standing Balance Ability Good Device Used FWW M5 PT-IP Objective Assessments Start: 06/14/22 13:24 Freq: NEEDED Status: Active Protocol: Document 06/14/22 14:21 AW (Rec: 06/14/22 15:00 AW [id number]) Orientation Orientation/Cognition Level of Alertness Alert Orientation Name,Day of Week,Place, Situation Language Function Ability No Deficits Noted Safety Awareness Understands Safety Issues Memory Description No Deficits Noted Gross Range of Motion Lower Extremity ROM Assessment Right Impaired Strength Lower Extremity Strength Assessment Right Impaired Hip 3+/5 Knee 4/5 Comments Strength Comments LLE grossly 4+/5 Sensation Assessment Sensation Gross Sensation Right LE Impaired Sensation Description Numbness Comments Sensation Comments Dull light touch sensation proximal RLE M6 PT-IP Treatment Start: 06/14/22 13:24 Freq: NEEDED Status: Active Protocol: Document 06/14/22 14:21 AW (Rec: 06/14/22 15:00 AW [id number]) Physical Therapy Treatment Exercises Exercises Ankle Pumps,Gluteal Sets,Quad Sets,Heel Slides,Supine Hip Abduction Education Education Provided Precautions,Weight Bearing Status,Post-Op Packet,Safety Other Treatments Other Treatment Performed Educated pt on role of PT, plan of care, posterior hip precautions, weightbearing status, and safe use of FWW. M7 PT-IP Assessment and Plan Start: 06/14/22 13:24 Freq: NEEDED Status: Active Protocol: Document 06/14/22 14:21 AW (Rec: 06/14/22 15:00 AW [id number]) PT Summary Assessment and Plan Potential Rehabilitation Potential Excellent Status of Condition at Evaluation Evolving Summary Impairments Pain,ROM,Strength,Balance,Bed Mobility,Transfers,Gait Assessment Summary Yahir is a 77yo man seen for PT evaluation on POD0 following right hip hemiarthroplasty. PLOF: Pt was modified independent with mobility using SPC after a fall in January . He has long-standing low back and right leg pain which have been limiting his walking tolerance. CLOF: Pt requiring CGA to min assist for mobility with FWW. Pt has a supportive spouse who will be available and able to assist at home. PT anticipates pt will be safe to discharge home with assist once medically stable. Recommend pt acquire FWW if unsafe with 4WW. Pt would benefit from outpatient PT in the context of an injurious fall, ongoing right leg pain, and now s/p hip arthroplasty. Goals Bed Mobility Goal Independent Transfer Goal Independent,Front Wheeled Walker Gait Goal Independent,Front Wheel Walker Gait Distance 200 Days to Meet Goals 2 Frequency of Treatment Frequency Of Treatment Twice a Day Treatment Plan Physical Therapy Treatment Plan Bed Mobility Training,Transfer Training,Gait Training, Therapeutic Exercise,Balance Retraining,Post Op Education, Discharge Planning,Hot or Cold Pack,Neuromuscular Re-ed Other Recommendations and Next Treatment Reenforce posterior Focus precautions. Trial gait with 4WW. Trial stairs if pt agreeable (does not need to climb stairs at home but may want to; does not have outpt PT set up yet). Precautions Posterior Hip Precautions No Hip Flexion > 90 degrees,No Hip Internal Rotation,No Hip Adduction Recommendations To Nursing Amount of Assist Needed Standby Assistance,1 Person Assist Discharge Recommendations PT Discharge Recommendations Home with Assistance, Outpatient PT Equipment Needed for Home Before FWW if unsafe with 4WW Discharge Transportation Needs at Discharge Private Vehicle
[2022-06-14] MEDS: ACETAMINOPHEN 325 MG TABLET 650 MG PO ×2 (16:18→23:36)
[2022-06-14] MEDS: OXYCODONE IR 5 MG TABLET PO ×2 (18:19→21:28)
[2022-06-14] MEDS: ASPIRIN EC 81 MG TABLET PO (21:28)
[2022-06-14] MEDS: DOCUSATE 100 MG CAPSULE PO (21:28)
[2022-06-14] MEDS: hydrOXYzine pamoate 25 MG CAPSULE PO (21:28)
[2022-06-15] VITALS: BP 137/52; PULSE 60; RESP 18; TEMP 36.4; O2SAT 96
[2022-06-15 05:38] VITALS: BP 133/47; PULSE 61; RESP 18; TEMP 36.7; O2SAT 96
[2022-06-15] MEDS: ACETAMINOPHEN 325 MG TABLET 650 MG PO (05:38)
[2022-06-15 06:04] LABS: Hematocrit 25.7 % (41-53); Hemoglobin 8.4 g/dL (13.5-17.5)
[2022-06-15] MEDS: DOCUSATE 100 MG CAPSULE PO (08:29)
[2022-06-15] MEDS: OXYCODONE IR 5 MG TABLET PO (08:29)
[2022-06-15] MEDS: ASPIRIN EC 81 MG TABLET PO (08:29)
--- NOTE | 2022-06-15 08:34 | P.DS_ITS ---
History of Present Illness History of Present Illness Date Patient Seen: 06/15/22 Time Patient Seen: 08:35 Chief complaint: RIGHT HIP HEMIARTHOPLASTY Narrative: Patient is 77-year-old male that a right femoral neck fracture and severe right hip and leg pain after a fall. He was indicated for right hip hemiarthroplasty, endoprosthesis for femoral fracture. He underwent surgery 12/07/2021 and was admitted to the hospital afterwards for therapy, and pain control. 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 And has a history of severe lower back pain and sciatica. No fevers chills nausea or vomiting Discharge Providers Provider Date of admission: 06/14/22 06:15 Discharge Date: 06/15/22 Primary care physician: Alfred Solis MD Consults: 06/14/22 11:09 Consult to Discharge Planning Routine Comment: Consult to Physical Therapy Evaluate & Treat Comment: Physician Instructions: post op RAHEL protocol Discharge provider: Lisa Ventura MD Summary Status at Discharge Cognitive/behavioral status at discharge: oriented Functional status at discharge: uses cane/walker Overall status at discharge: patient is progressing back to baseline Time Spent with Patient Time spent: Less than 30 minutes Exam Vital Signs (past 8 hours): - 06/15/22 05:38 Temperature 98.1 F Pulse Rate 61 Respiratory Rate 18 Blood Pressure 133/47 L Pulse Oximetry 96 Oxygen Flow Rate 0 Oxygen Delivery Method Room Air Oxygen Flow Rate 0 Narrative Exam Narrative: HEENT exam normocephalic atraumatic General exam alert oriented Respiratory exam unlabored on room air Heart regular rate and rhythm Right lower extremity exam demonstrates dorsiflexion plantar flexion. Dressing clean dry and intact. Thigh and calf are soft. SCDs in place Sensation grossly intact. Moving bilateral upper extremities without limitations Objective Labs Result Diagrams: 06/15/22 05:26 Labs: Laboratory Results - last 24 hr 06/15/22 05:26 Hgb 8.4 L Hct 25.7 L PFSH Medical History A-fib Degenerative joint disease of right hip Diarrhea Distal radius fracture, left Hip fx Lumbar radiculopathy Social History household members: spouse Smoking Status: Former smoker alcohol intake: current Discharge Assessment & Plan Assessment and Plan Assessment: Right femoral neck fracture from ground level fall, osteoporotic hip fracture by definition. Postop day 1 status post right endoprosthesis, hemiarthroplasty for right femoral neck fracture. Doing well. Pain controlled. Postoperative acute blood loss anemia on top of chronic anemia. Vital signs are stable. No indication for transfusion. Discussed iron supplementation. Patient declines. Recommended calcium and vitamin-D for bone health. Would recommend DEXA scan if he has not had 1 in the last 2 years sometime in the next 3-4 months as he recovers from surgery to screen and direct treatment for prevention of future osteoporotic fracture Plan of Treatment: Weightbear as tolerated. Work with therapy. Passes therapy and controlled then home to day. Operative posterior hip precautions x6 weeks. Follow up in orthopedic clinic in 2 weeks for staple removal. Has an Aquacel dressing in place may shower in this do not soak the dressing. We will use aspirin 81 mg b.i.d. for DVT prophylaxis as patient is mobilizing well Discharge Plan Discharge Plan Patient Disposition: Home Discharge orders & Medications Prescriptions: New acetaminophen 325 mg Tablet 650 mg PO Q6HR Qty: 60 0RF aspirin 81 mg Tablet,Delayed Release (Dr/Ec) 81 mg PO BID Qty: 84 0RF calcium carbonate 200 mg calcium (500 mg) Tablet,Chewable 500 mg PO BID Qty: 60 0RF docusate sodium 100 mg Capsule 100 mg PO BID Qty: 60 0RF ondansetron 4 mg Tablet,Disintegrating 4 mg PO Q4HR PRN (Reason: Nausea) Qty: 5 1RF oxycodone 5 mg Tablet 5 mg PO Q4H PRN (Reason: Pain, Moderate (4-6)) Qty: 40 0RF cholecalciferol (vitamin D3) 25 mcg (1,000 unit) Tablet 1,000 unit PO DAILY Qty: 60 0RF Continued metoprolol succinate 50 mg Tablet Extended Release 24 Hr 50 mg PO DAILY cholecalciferol (vitamin D3) [Vitamin D3] 25 mcg (1,000 unit) Tablet 25 mcg PO DAILY rosuvastatin 40 mg Tablet 40 mg PO DAILY ezetimibe 10 mg Tablet 10 mg PO DAILY acyclovir 400 mg tablet 400 mg PO DAILY Hold Instructions: Home Medication placed on hold at Doctor's office celecoxib [Celebrex] 200 mg capsule 200 mg PO DAILY Qty: 30 2RF Discontinued aspirin 81 mg Tablet,Delayed Release (Dr/Ec) 81 mg DAILY naproxen sodium [Aleve] 220 mg capsule 220 mg PO BID Hold Instructions: Home Medication placed on hold at Doctor's office ibuprofen 200 mg capsule 200 mg PO Q6H Hold Instructions: Home Medication placed on hold at Doctor's office Follow up/Referrals: Aflred Solis MD [Primary Care Provider] - Diet/Activity/Treatments Diet: Diet as Tolerated Activity: Weightbear as tolerated. Posterior hip precautions x6 weeks Other treatments: Medications: -Aspirin 81mg twice daily x6 weeks to prevent blood clots. -OTC Tylenol 500-650 mg 1 tablet every 4 hours as needed for pain/fever. Max 3000mg per day. (take scheduled every 4-6 hours for the first few days to week after schedule to help stay on top of your pain) -Celebrex -Oxycodone 5 mg take 1-2 tablets (5-10mg) every 4 hours as needed for moderate- severe pain (narcotic pain medication). (maximum dose for very severe pain would be 3 pills (15mg) every 3 hours)--take smallest amount necessary to control your pain -ondansetron 4mg - 1 tab every 8 hours as needed for nausea -As needed medications: -Ducolax and /or MiraLax as needed for constipation from narcotic pain medications. -Pepcid AC as needed for stomach upset (usually from aspirin or ibuprofen). Dressing/Wound care: -Keep Aquacell dressing in place until postoperative follow-up office visit. -Okay to shower. Keep wound out of direct water stream. No soaking or submerging until all the scabs fall off (approximately 4-6 weeks). -No lotions, ointments, or scar creams directly to the incision until the wound is healed (4-6 weeks), -Please call the office if dressing becomes wet, soiled, or saturated. Activities: -Weight-bearing as tolerated. Use front wheeled walker, and progress to cane when safe. -Continue with home exercises as directed by your physical therapist. -postoperative hip precautions for the 1st 6 weeks -should have outpatient Physical Therapy visits set up to start within 1-2 weeks after surgery-a prescription will be sent from our office or will be established at your 1st postoperative appointment -Ice your incision as needed for pain/inflammation/swelling. Protect your skin with a folded pillowcase. -Incentive Spirometer (deep breathing device from hospital): 5-10xs every hour while awake for the first 1-2 weeks. Follow-up: -Follow-up with your surgeon or PA in the office in 10-14 days after surgery. -Follow-up with your surgeon 6 weeks postoperatively. Contact the office if you have any of the following: ? Painful swelling or numbness ? Unrelenting pain ? Fever (over 101?- it is normal to have a low grade fever for the first day or two following surgery) or chills ? Redness around the incisions ? Color changes ? Continuous bleeding or drainage from the incision (a small amount is expected) ? Excessive nausea or vomiting ? Difficulty breathing If you have an emergency that requires immediate attention such as shortness of breath or chest pain, call 911 or proceed to the nearest emergency room. [facility]: [phone] Pain Medications: It is the policy of [facility] that narcotic medications will only be refilled during office hours. Additionally, due to the alarming rate of narcotic pain medication abuse/dependence, it has become necessary for physician practices to closely manage patient use of prescription narcotic pain relievers, such as Vicodin ([place]), Percocet, and Oxycodone products. Narcotic pain management in the postoperative period may not exceed 6 weeks. If narcotic pain management is required beyond 90 days, then a referral to a Chronic Pain Specialist will be made. If a request for a medication prescription of refill has been made, the physician must review your chart prior to authorizing the request. Please be patient with office staff. If you call during patient hours, your call may not be returned until the end of the day. Skin/Wound/Dressing Care Report to your healthcare provider any signs of infection, such as:: chills, fever, night sweats, increased pain, unusual drainage and unusual redness Visit Report/Discharge Packet Instructions: DI for Hip Replacement, DI for Prescription Opioid Use Discharge Data Primary Care Provider: Alfred Solis VTE Deep Vein Thrombosis/Pulmonary Embolism Present on Admission: No
[2022-06-15 08:52] VITALS: BP 140/46; PULSE 59; RESP 17; TEMP 36.2; O2SAT 99
--- NOTE | 2022-06-15 09:59 | PC.NURSE ---
Patient was asked last night in front of his if he had any medications that he brought from home, he stated no. He did not remember that conversation today. Patient took his own home meds this morning, this RN did not. Each medication was cancelled as not given. He did take some metoprolol and zetia. This RN gave him aspirin and a stool softner. Explained to patient that he should never take meds from home unless it is one that we dont have stalked in pharmacy. He was agreeable to talk and understands. is aware. Patient given oxycodone for pain, dressing is cdi and ppx2. He is moving with a one person assist and walker.
--- NOTE | 2022-06-15 11:21 | CM.DANOTE ---
Initial DCP Assessment Note Pt is a 77 yo male, resident of [place], now POD#1 from Rt RAHEL surgery by Dr Ventura PCP: Alfred Solis Payer: Dong GREENE Reviewed chart, pt discussed in multidisciplinary rounds this morning. Therapy has cleared pt for return home w/family to assist and pt has planned for home, DC order from Ortho has already been initiated this morning. Spouse scheduled for caregiver training w/ [employer] this morning No barriers identified at this time to patient's safe discharge home w/family to assist; close outpatient f/u recommended. PERICO Balderas Discharge Planning/Care Management CM Discharge Assessment Start: 06/15/22 11:18 Freq: Status: Active Protocol: Document 06/15/22 11:19 EARL (Rec: 06/15/22 11:21 EARL [id number]) Discharge Planning Assessment Assigned Ore Miner PERICO Garsia DPOA/Assigned Designee Name Opal Rhoades, spouse Contact Information [phone] Advance Directives? Yes Advance Directives on File No History Provided By Patient,Medical Record Prior Living Arrangements House Household Members spouse Type of transporation used prior to Drives own vehicle admit Independent with ADL's Yes Is patient alert and oriented? Yes Barriers to Discharge No Comment Home w/spouse and outpatient PT expected Discharge Plan Home Transportation Arrangement Spouse Referrals Initiated None needed
--- NOTE | 2022-06-15 12:19 | PT.IPTN ---
Current Diagnoses Fracture of unspecified part of neck of right femur, initial encounter for closed fracture (06/14/22) Surgery Performed Operation Date: 06/14/22 07:45 Actual Procedures p Hip Hemiarthroplasty(Right) - Lisa Ventura MD Physical Therapy Treatment Note M2 PT-IP Current Condition Start: 06/14/22 13:24 Freq: NEEDED Status: Discharge Protocol: Document 06/15/22 11:58 SP (Rec: 06/15/22 18:50 SP [id number]) Physical Therapy Current Condition Current Condition Evaluation Date 06/14/22 Treatment Diagnosis R hip hemiarthroplasty with posterior approach; difficulty in walking Onset Date 06/14/22 M3 PT-IP Subjective Start: 06/14/22 13:24 Freq: NEEDED Status: Discharge Protocol: Document 06/15/22 11:58 SP (Rec: 06/15/22 18:50 SP [id number]) Subjective Physical Therapy Visit Type Type Treatment Note Visit Start Time 11:58 Visit Stop Time 12:19 Total Visit Minutes 21 Notes Pt asked CHOCOLATIER return later am until arrived work together. complete CGT including donning gait belt and CGA/ SBA needed throughout tx. Vitals taken: seated at EOB: 137/47 HR 106, SaO2 94% on RA Standin/51 Hr 73 Physical Therapy Visit Comments Patient Comments Pt is willing to participate with PT Patient Goals Return home with spouse report . Eventually, return to boating Therapy Pain Assessment Pain When Pain Assessed During Mobility Pain Present Pain Present Pain Reported Location R hip Scale Used very low, no scale rating given. Pain Management Techniques Distraction,Re-positioning, Timing of Activity with Medications M4 PT-IP Mobility and Gait Start: 06/14/22 13:24 Freq: NEEDED Status: Discharge Protocol: Document 06/15/22 11:58 SP (Rec: 06/15/22 18:50 SP [id number]) PT-Transfer Assessment Sit to and From Stand Sit to and from Stand Contact Guard Assistance,Use of Upper Extremities Equipment Transfer Assistive Device Gait Belt,Front Wheeled Walker Orthotic/Prosthetic Devices or Brace: No Transfers Transfer Destination Chair Transfer Technique pt ambulated with FWW/ 4WW Transfer Ability Level of Assist Standby Assistance,Contact Guard Assistance,Use of Upper Extremities Comments Mobility Comments Pt sitting EOB eating lunch when returned 2nd attempt. Discussed post- op exercises and reviewed HO, not performed , good understanding. Stated will get set up with outpt therapy. in room, she donned gait belt on pt, Sit> stand CGA w/ FWW, gait further distance around nursing station approx 212 ft CG> sBA by w/c follow just in case/ not needed, improved step over step gait phases, BUE WB on FWW needed. Pt stated not having as much pain in R hip as had in past, pleased. Pt returned to room chair SBA, cued for fully back step and reach BUE slow descent safety sit in chair CHOCOLATIER provided 4WW to assess, STS post locking brakes, gait around room SBA receiprocal steppinig good slower pacing/ control and return to chair proper brake mgt pre sit/ stand. Good recall and demonstration of post op precautions. Pt is ok to return home with to assist him when medically cleared, notified nursing and care mgt, recommended outpt PT . Gait Assessment Gait Gait Assistance Required: Contact Guard Assist Distance (Feet) 212 Able to Maintain Weight Bearing Status Yes During Gait Assistive Devices Assistive Device Gait Belt,Front Wheeled Walker ,4 Wheeled Walker Orthotic/Prosthetic Devices or Brace: No Gait Deviations General Gait Pattern Antalgic,Step-to Gait Factors Limiting Gait Function Factors Limiting Gait Function Decreased Strength,Pain Comments Gait Comments see mobility comments Stair Climbing Assessment Comments Stair Climbing Comments Not assessed. Pt does not need to do stairs and declined assessment when offered. PT-Balance Assessment Sitting Balance and Reactions Static Sitting Balance Ability Normal Dynamic Sitting Balance Ability Normal Standing Balance and Reactions Static Standing Balance Ability Good Dynamic Standing Balance Ability Good Device Used FWW/4WW M5 PT-IP Objective Assessments Start: 06/14/22 13:24 Freq: NEEDED Status: Discharge Protocol: Document 06/14/22 14:21 AW (Rec: 06/14/22 15:00 AW [id number]) Orientation Orientation/Cognition Level of Alertness Alert Orientation Name,Day of Week,Place, Situation Language Function Ability No Deficits Noted Safety Awareness Understands Safety Issues Memory Description No Deficits Noted Gross Range of Motion Lower Extremity ROM Assessment Right Impaired Strength Lower Extremity Strength Assessment Right Impaired Hip 3+/5 Knee 4/5 Comments Strength Comments LLE grossly 4+/5 Sensation Assessment Sensation Gross Sensation Right LE Impaired Sensation Description Numbness Comments Sensation Comments Dull light touch sensation proximal RLE M6 PT-IP Treatment Start: 06/14/22 13:24 Freq: NEEDED Status: Discharge Protocol: Document 06/15/22 11:58 SP (Rec: 06/15/22 18:50 SP [id number]) Physical Therapy Treatment Exercises Knee ROM Measurement Discussed with use of HOs Education Education Provided Precautions,Weight Bearing Status,Post-Op Packet,Safety Other Treatments Other Treatment Performed Education walk around even hour and post op ex 3x/ day, agreed. M7 PT-IP Assessment and Plan Start: 06/14/22 13:24 Freq: NEEDED Status: Discharge Protocol: Document 06/15/22 11:58 SP (Rec: 06/15/22 18:50 SP [id number]) PT Summary Assessment and Plan Potential Rehabilitation Potential Excellent Status of Condition at Evaluation Evolving Summary Impairments Pain,ROM,Strength,Balance,Bed Mobility,Transfers,Gait Progress Towards Goals Progressing Toward Goals Assessment Summary Pt CG/ SBA mobility w/ FWW, gait 212 ft w/ FWW, room 30 ft 4WW good stability. Pt is ok to return home with support home needed, when medically cleared. CHOCOLATIER recommending outpt PT to progress ROM, strength, balance, return PLOF. Goals Bed Mobility Goal Independent Transfer Goal Independent,Front Wheeled Walker Gait Goal Independent,Front Wheel Walker Gait Distance 200 Days to Meet Goals 2 Frequency of Treatment Frequency Of Treatment Twice a Day Treatment Plan Physical Therapy Treatment Plan Bed Mobility Training,Transfer Training,Gait Training, Therapeutic Exercise,Balance Retraining,Post Op Education, Discharge Planning,Hot or Cold Pack,Neuromuscular Re-ed Other Recommendations and Next Treatment post op ex, ROM, gait w/ LRAD, Focus balance. Stair mgt if wanting . Precautions Posterior Hip Precautions No Hip Flexion > 90 degrees,No Hip Internal Rotation,No Hip Adduction Recommendations To Nursing Amount of Assist Needed Standby Assistance,1 Person Assist Discharge Recommendations PT Discharge Recommendations Home with Assistance, Outpatient PT Equipment Needed for Home Before ok to use 4WW, not needing Discharge FWW Transportation Needs at Discharge Private Vehicle [id number]
--- NOTE | 2022-06-15 13:23 | PC.NURSE ---
pt pulled out his owne IV and was bleeding. I helped pt wrap his hand
[2022-06-15 13:43] VITALS: BP 126/48; PULSE 56; RESP 16; TEMP 36.3; O2SAT 99
== END 2022-06-15 13:30 | disposition home or self-care (01) | DRG 522 ==
PROVIDERS: Admitting Provider Orthopaedic Surgery Foot and Ankle Surgery; PCP Family Medicine; Referring Provider Orthopaedic Surgery; Visit Provider Orthopaedic Surgery Foot and Ankle Surgery
PROC: 0SRR0JZ Replacement of Right Hip Joint, Femoral Surface with Synthetic Substitute, Open Approach (ICD-10-PCS; CPT 27125; principal; 2022-06-14 07:45)
DX: M80.051A Age-related osteoporosis with current pathological fracture, right femur, initial encounter for fracture (principal); Z87.891 Personal history of nicotine dependence; Z20.822 Contact with and (suspected) exposure to COVID-19
CPT/HCPCS: 36415; 72170; 73502; 85014; 85018; 87635; 97116; 97162; C1776; C9803; C9290; J0171; J0690; J1100; J2250; J2405; J2704; J3010

== ENCOUNTER 2022-11-23 11:33 | Emergency (ER) | payer OTHER, SELFPAY ==
[2022-06-26 14:41] VITALS: BMI 26.9
[2022-11-23 11:41] VITALS: BP 166/72; PULSE 56; RESP 16; TEMP 36.5; O2SAT 98; BMI 25.8
[2022-11-23] MEDS: SODIUM CHLORIDE 0.9% 1,000 ML 1000 ML IV (12:03)
[2022-11-23 12:04] LABS: Hematocrit 34.4 % (41-53); Hemoglobin 11.3 g/dL (13.5-17.5); Mean Corpuscular HGB Conc 32.9 % (30-36); Mean Corpuscular Hemoglobin 30.6 PG (26-34); Mean Corpuscular Volume 92.9 fL (80-100); Platelet Count 240 X10^3/uL (150-400); Red Cell Distribution Width 21.5 % (11.6-14.8)
[2022-11-23 12:11] LABS: Alanine Aminotransferase 30 IU/L (<50); Albumin Globulin Ratio 1.3 (1.0-2.8); Alkaline Phosphatase 77 U/L (38-126); Aspartate Aminotransferase 47 IU/L (17-59); BUN Creatinine Ratio 24.6 (6-22); Bilirubin Total 0.7 mg/dL (0.2-1.3); Blood Urea Nitrogen 17 mg/dL (9-20); Calcium 8.9 mg/dL (8.4-10.2); Carbon Dioxide 32 mmol/L (22-32); Chloride 99 mmol/L (98-107); Estimated Glomerular Filt Rate > 60 mL/min (>60); Glucose 87 mg/dL (80-110); HEMOLYSIS 42 (0-50); Lipase 50 U/L (23-300); Potassium 4.6 mmol/L (3.4-5.1); Sodium 136 mmol/L (137-145)
[2022-11-23 12:12] LABS: Add Manual Diff / Slide Review YES
--- NOTE | 2022-11-23 12:27 | DI.CT.S_ITS ---
PROCEDURE: CT ABDOMEN PELVIS W CON INDICATIONS: diarrhea x 1 month, hx appy, splenectomy, lymphoma TECHNIQUE: After the administration of intravenous contrast, axial sections acquired from the lung bases to the pubic symphysis. Coronal and sagittal reformats were performed. For radiation dose reduction, the following was used: automated exposure control, adjustment of mA and/or kV according to patient size. COMPARISON: None. FINDINGS: Image quality: Excellent. Lung bases: Unremarkable. Heart: No significant findings. ABDOMEN: Liver: Unremarkable. Gallbladder: Decompressed. Biliary ducts: Unremarkable. Pancreas: Unremarkable. Spleen: Absent Adrenal Glands: Unremarkable. Kidneys and Ureters: Mild cystic changes of the kidneys.. Stomach and Bowel: Stomach, small bowel loops, and colon are unremarkable. Scattered diverticulosis without evidence of acute diverticulitis. The appendix is not identified. Peritoneum: No abnormal intraperitoneal fluid. No free air. Ventral Wall: No hernias. Abdominal Nodes: Nonspecific lymphadenopathy in the samantha hepatitis. Vessels: Aorta and inferior vena cava are normal in size. PELVIS: Pelvic Organs: Unremarkable. Bladder: Unremarkable. Pelvic Nodes: No enlarged lymph nodes. Miscellaneous: No hernias are seen. Bones: Unremarkable. Prominent spondylitic changes of the lumbar spine. Right hip prosthesis results in significant streak artifact. IMPRESSION: 1. Diverticulosis without evidence of acute diverticulitis. 2. Nonspecific samantha hepatic lymphadenopathy, correlate for enteritis. 3. Sequela of prior splenectomy. 4. Degenerative changes of the lumbar spine. Dictated by: Good Olvera M.D. on 11/23/2022 at 12:26 Approved by: Good Olvera M.D. on 11/23/2022 at 12:32
[2022-11-23 12:29] LABS: Neutrophils Absolute Manual 2380 /uL (3000-5900); Nucleated Red Blood Cells 1 #/Diff; Total Cells Counted 100
--- NOTE | 2022-11-23 12:29 | ED_ITS ---
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 He presents to the emergency department today complaining of diarrhea for 1 month that started while he was in [facility] where he lives half of the year, he states when it started it was very ?forceful ?and he was ill feeling but now it has become frequent loose stools. He denies any blood in his stool, denies any pain anywhere in his abdomen, denies shortness of breath, chest pain, weakness, dizziness, chest pain, back pain, flank pain or any symptoms whatsoever. He states that he feels well overall. Denies any upper respiratory symptoms, denies fever chills, nausea, vomiting or blood in his stool. Denies any urinary symptoms as well. States that his stools are loose and he has frequent stools daily, has a colo noscopy scheduled next week with [facility]. Related Data Home Medications Medication Instructions Recorded Confirmed cholecalciferol (vitamin D3) 25 25 mcg PO DAILY 05/25/20 11/20/22 mcg (1,000 unit) tablet (Vitamin D3) metoprolol succinate 50 mg 50 mg PO DAILY 05/25/20 11/20/22 tablet,extended release 24 hr rosuvastatin 40 mg tablet 40 mg PO DAILY 01/25/21 11/20/22 ezetimibe 10 mg tablet 10 mg PO DAILY 02/18/22 11/20/22 Previous Rx's Medication Instructions Recorded celecoxib 200 mg capsule (Celebrex) 200 mg PO DAILY #30 caps 06/03/22 acetaminophen 325 mg tablet 650 mg PO Q6HR #60 tabs 06/15/22 aspirin 81 mg tablet,delayed 81 mg PO BID #84 tabs 06/15/22 release docusate sodium 100 mg capsule 100 mg PO BID #60 caps 06/15/22 azithromycin 500 mg tablet 500 mg PO DAILY enteritis 3 days 11/23/22 #3 tabs Allergies Allergy/AdvReac Type Severity Reaction Status Date / Time oxycodone Allergy Mild itching Verified 11/23/22 11:45 Review of Systems <MIA Murdock - Last Filed: 11/23/22 14:59> Review of Systems ROS Unobtainable: All systems reviewed & are unremarkable except as noted in HPI and below Patient History <MIA Murdock - Last Filed: 11/23/22 14:59> Medical History A-fib Degenerative joint disease of right hip Diarrhea Distal radius fracture, left Facet arthropathy, lumbar Hip fx Lumbar foraminal stenosis Lumbar radiculopathy Surgical History History of total right hip arthroplasty Social History household members: spouse Smoking Status: Former smoker alcohol intake: current Smoking Status: Former smoker alcohol intake frequency: 0-2 drinks per day Alcohol type: wine Substance Use Type: does not use Exam <MIA Murdock - Last Filed: 11/23/22 14:59> Narrative Exam Narrative: Reviewed vitals signs and nursing notes. General: Pleasant, sitting upright, in no acute distress, well groomed, afebrile HEENT: symmetrical facial expressions, moist mucous membranes, neck is supple CV: bradycardic rate and rhythm, warm extremities Respiratory: normal work of breathing, without tachypnea or hypoxia. GI: abdomen soft, nondistended, without CVA tenderness bilaterally. No Masses MSK: moves all extremities, no weakness, normal tone, ambulatory without deficit Skin: brisk capillary refill, without rash or wound Neuro: clear speech and normal cognition, A&O x3, GCS 15, no focal motor or sensation deficits Initial Vital Signs Initial Vital Signs: Vital Signs Temperature 97.7 F 11/23/22 11:41 Pulse Rate 56 L 11/23/22 11:41 Respiratory Rate 16 11/23/22 11:41 Blood Pressure 166/72 H 11/23/22 11:41 Pulse Oximetry 98 11/23/22 11:41 Oxygen Delivery Method Room Air 11/23/22 11:41 <Stevenson Kidd DO - Last Filed: 11/23/22 15:12> Initial Vital Signs Initial Vital Signs: Vital Signs Temperature 97.7 F 11/23/22 11:41 Pulse Rate 56 L 11/23/22 11:41 Respiratory Rate 16 11/23/22 11:41 Blood Pressure 166/72 H 11/23/22 11:41 Pulse Oximetry 98 11/23/22 11:41 Oxygen Delivery Method Room Air 11/23/22 11:41 Course <Lucero Sánchez [facility] - Last Filed: 11/23/22 14:59> Orders Ordered: ED Orders 11/23/22 11:43 Amylase Stat CRP [C-Reactive Protein Quant] Stat Complete Blood Count AUTO DIFF Stat Comprehensive Metabolic Panel Stat ESR [Erythrocyte Sedimentation Rate] Stat Lipase Stat Magnesium Stat TSH [Thyroid Stimulating Hormone] Stat 11/23/22 12:05 GI Panel (Film Array) Stat 11/23/22 12:27 CT abdomen pelvis w con Stat Discontinued Medications Azithromycin (Azithromycin 250 Mg Tablet) 500 mg PO NOW ONE Stop: 11/23/22 14:37 Last Admin: 11/23/22 14:46 Dose: 500 mg Documented By: SOO Sodium Chloride (Normal Saline 0.9%) 1,000 mls @ 1,000 mls/hr IV BOLUS ONE Stop: 11/23/22 12:54 Last Infusion: 11/23/22 13:29 Dose: 0 mls/hr Documented By: Admin: 11/23/22 12:03 Dose: 1,000 mls/hr Documented By: SOO Vital Signs Vital signs: Vital Signs - 8 hr 11/23/22 11:41 11/23/22 14:52 Temperature 97.7 F Pulse Rate 56 L 55 L Respiratory Rate 16 18 Blood Pressure 166/72 H 160/84 H Pulse Oximetry 98 99 Oxygen Delivery Method Room Air Room Air <Stevenson Kidd DO - Last Filed: 11/23/22 15:12> Orders Ordered: ED Orders 11/23/22 11:43 Amylase Stat CRP [C-Reactive Protein Quant] Stat Complete Blood Count AUTO DIFF Stat Comprehensive Metabolic Panel Stat ESR [Erythrocyte Sedimentation Rate] Stat Lipase Stat Magnesium Stat TSH [Thyroid Stimulating Hormone] Stat 11/23/22 12:05 GI Panel (Film Array) Stat 11/23/22 12:27 CT abdomen pelvis w con Stat Discontinued Medications Azithromycin (Azithromycin 250 Mg Tablet) 500 mg PO NOW ONE Stop: 11/23/22 14:37 Last Admin: 11/23/22 14:46 Dose: 500 mg Documented By: SOO Sodium Chloride (Normal Saline 0.9%) 1,000 mls @ 1,000 mls/hr IV BOLUS ONE Stop: 11/23/22 12:54 Last Infusion: 11/23/22 13:29 Dose: 0 mls/hr Documented By: Admin: 11/23/22 12:03 Dose: 1,000 mls/hr Documented By: SOO Vital Signs Vital signs: Vital Signs - 8 hr 11/23/22 11:41 11/23/22 14:52 Temperature 97.7 F Pulse Rate 56 L 55 L Respiratory Rate 16 18 Blood Pressure 166/72 H 160/84 H Pulse Oximetry 98 99 Oxygen Delivery Method Room Air Room Air MDM - Nausea/Vomiting/Diarrhea <MIA Murdock - Last Filed: 11/23/22 14:59> Lab Data 11/23/22 11:43 11/23/22 11:43 Labs: Lab Results 11/23/22 11/23/22 11/23/22 Range/Units 11:43 11:43 11:43 WBC 17.0 H (4.5-11.0) X10^3/uL RBC 3.70 L (4.5-5.9) X10^6/uL Hgb 11.3 L (13.5-17.5) g/dL Hct 34.4 L (41-53) % MCV 92.9 (80-100) fL MCH 30.6 (26-34) PG MCHC 32.9 (30-36) % RDW 21.5 H (11.6-14.8) % Plt Count 240 (150-400) X10^3/uL Neut % (Auto) Not Reportable Lymph % (Auto) Not Reportable [place] % (Auto) Not Reportable Eos % (Auto) Not Reportable Baso % (Auto) Not Reportable Lymph # (Auto) Not Reportable [place] # (Auto) Not Reportable Baso # (Auto) Not Reportable Total Counted 100 Seg Neutrophils % 14.0 L (38-70) % Lymphocytes % (Manual) 73.0 H (25-45) % Atypical Lymphs % 2.0 H ( - 0) % Monocytes % (Manual) 10.0 (2-11) % Eosinophils % (Manual) 1.0 L (2-4) % Neutrophils # (Manual) 2380 L (6274-3086) /uL Nucleated RBCs 1 H ( - 0) #/Diff RBC Morphology See below Anisocytosis 2+ H Target Cells 1+ H ESR 31 H (0-15) MM/HR Sodium 136 L (137-145) mmol/L Potassium 4.6 (3.4-5.1) mmol/L Chloride 99 (98-107) mmol/L Carbon Dioxide 32 (22-32) mmol/L BUN 17 (9-20) mg/dL Creatinine 0.69 (0.66-1.25) mg/dL Estimated GFR > 60 (>60) mL/min BUN/Creatinine Ratio 24.6 H (6-22) Glucose 87 (80-110) mg/dL Calcium 8.9 (8.4-10.2) mg/dL Magnesium (1.6-2.3) mg/dL Total Bilirubin 0.7 (0.2-1.3) mg/dL AST 47 (17-59) IU/L ALT 30 (<50) IU/L Alkaline Phosphatase 77 (38-126) U/L C-Reactive Protein (<1.0) mg/dL Total Protein 7.0 (6.3-8.2) g/dL Albumin 4.0 (3.5-5.0) g/dL Globulin 3.0 (1.7-4.1) g/dL Albumin/Globulin Ratio 1.3 (1.0-2.8) Amylase (30-110) U/L Lipase 50 (23-300) U/L TSH (0.47-4.68) uIU/mL Stl C. cayetanensis PCR (Not Detect) Stool Rotavirus (PCR) (Not Detect) Stool Adenovirus (PCR) (Not Detect) Stool Astrovirus (PCR) (Not Detect) Stool Cryptosporidium PCR (Not Detect) Stl E.coli Shiga Tox PCR (Not Detect) St Sh/Enteroin Ecoli PCR (Not Detect) Stool E coli O157 PCR Stl Enterotoxigenic E PCR (Not Detect) Stool EPEC (PCR) (Not Detect) Stl E. histolytica PCR (Not Detect) Stool Giardia Lamblia PCR (Not Detect) Stool Sapovirus (PCR) (Not Detect) Stl P. shigelloides PCR (Not Detect) St Y.enterocolitica PCR (Not Detect) Stool Vibrio (PCR) (Not Detect) Stl Vibrio cholerae PCR (Not Detect) Stl Enteroaggr Ecoli PCR (Not Detect) Stl Norovirus GI/GII PCR (Not Detect) Campylobacter (PCR) (Not Detect) C. difficile Tox (PCR) (Not Detect) Salmonella (PCR) (Not Detect) 11/23/22 11/23/22 11/23/22 Range/Units 11:43 11:43 11:43 WBC (4.5-11.0) X10^3/uL RBC (4.5-5.9) X10^6/uL Hgb (13.5-17.5) g/dL Hct (41-53) % MCV (80-100) fL MCH (26-34) PG MCHC (30-36) % RDW (11.6-14.8) % Plt Count (150-400) X10^3/uL Neut % (Auto) Lymph % (Auto) [place] % (Auto) Eos % (Auto) Baso % (Auto) Lymph # (Auto) [place] # (Auto) Baso # (Auto) Total Counted Seg Neutrophils % (38-70) % Lymphocytes % (Manual) (25-45) % Atypical Lymphs % ( - 0) % Monocytes % (Manual) (2-11) % Eosinophils % (Manual) (2-4) % Neutrophils # (Manual) (6247-1425) /uL Nucleated RBCs ( - 0) #/Diff RBC Morphology Anisocytosis Target Cells ESR (0-15) MM/HR Sodium (137-145) mmol/L Potassium (3.4-5.1) mmol/L Chloride (98-107) mmol/L Carbon Dioxide (22-32) mmol/L BUN (9-20) mg/dL Creatinine (0.66-1.25) mg/dL Estimated GFR (>60) mL/min BUN/Creatinine Ratio (6-22) Glucose (80-110) mg/dL Calcium (8.4-10.2) mg/dL Magnesium 2.1 (1.6-2.3) mg/dL Total Bilirubin (0.2-1.3) mg/dL AST (17-59) IU/L ALT (<50) IU/L Alkaline Phosphatase (38-126) U/L C-Reactive Protein 0.7 (<1.0) mg/dL Total Protein (6.3-8.2) g/dL Albumin (3.5-5.0) g/dL Globulin (1.7-4.1) g/dL Albumin/Globulin Ratio (1.0-2.8) Amylase 60 (30-110) U/L Lipase (23-300) U/L TSH 2.11 (0.47-4.68) uIU/mL Stl C. cayetanensis PCR (Not Detect) Stool Rotavirus (PCR) (Not Detect) Stool Adenovirus (PCR) (Not Detect) Stool Astrovirus (PCR) (Not Detect) Stool Cryptosporidium PCR (Not Detect) Stl E.coli Shiga Tox PCR (Not Detect) St Sh/Enteroin Ecoli PCR (Not Detect) Stool E coli O157 PCR Stl Enterotoxigenic E PCR (Not Detect) Stool EPEC (PCR) (Not Detect) Stl E. histolytica PCR (Not Detect) Stool Giardia Lamblia PCR (Not Detect) Stool Sapovirus (PCR) (Not Detect) Stl P. shigelloides PCR (Not Detect) St Y.enterocolitica PCR (Not Detect) Stool Vibrio (PCR) (Not Detect) Stl Vibrio cholerae PCR (Not Detect) Stl Enteroaggr Ecoli PCR (Not Detect) Stl Norovirus GI/GII PCR (Not Detect) Campylobacter (PCR) (Not Detect) C. difficile Tox (PCR) (Not Detect) Salmonella (PCR) (Not Detect) 11/23/22 Range/Units 12:05 WBC (4.5-11.0) X10^3/uL RBC (4.5-5.9) X10^6/uL Hgb (13.5-17.5) g/dL Hct (41-53) % MCV (80-100) fL MCH (26-34) PG MCHC (30-36) % RDW (11.6-14.8) % Plt Count (150-400) X10^3/uL Neut % (Auto) Lymph % (Auto) [place] % (Auto) Eos % (Auto) Baso % (Auto) Lymph # (Auto) [place] # (Auto) Baso # (Auto) Total Counted Seg Neutrophils % (38-70) % Lymphocytes % (Manual) (25-45) % Atypical Lymphs % ( - 0) % Monocytes % (Manual) (2-11) % Eosinophils % (Manual) (2-4) % Neutrophils # (Manual) (7829-8930) /uL Nucleated RBCs ( - 0) #/Diff RBC Morphology Anisocytosis Target Cells ESR (0-15) MM/HR Sodium (137-145) mmol/L Potassium (3.4-5.1) mmol/L Chloride (98-107) mmol/L Carbon Dioxide (22-32) mmol/L BUN (9-20) mg/dL Creatinine (0.66-1.25) mg/dL Estimated GFR (>60) mL/min BUN/Creatinine Ratio (6-22) Glucose (80-110) mg/dL Calcium (8.4-10.2) mg/dL Magnesium (1.6-2.3) mg/dL Total Bilirubin (0.2-1.3) mg/dL AST (17-59) IU/L ALT (<50) IU/L Alkaline Phosphatase (38-126) U/L C-Reactive Protein (<1.0) mg/dL Total Protein (6.3-8.2) g/dL Albumin (3.5-5.0) g/dL Globulin (1.7-4.1) g/dL Albumin/Globulin Ratio (1.0-2.8) Amylase (30-110) U/L Lipase (23-300) U/L TSH (0.47-4.68) uIU/mL Stl C. cayetanensis PCR Not detected (Not Detect) Stool Rotavirus (PCR) Not detected (Not Detect) Stool Adenovirus (PCR) Not detected (Not Detect) Stool Astrovirus (PCR) Not detected (Not Detect) Stool Cryptosporidium PCR Detected H (Not Detect) Stl E.coli Shiga Tox PCR Not detected (Not Detect) St Sh/Enteroin Ecoli PCR Not detected (Not Detect) Stool E coli O157 PCR Not Reportable Stl Enterotoxigenic E PCR Not detected (Not Detect) Stool EPEC (PCR) Detected H (Not Detect) Stl E. histolytica PCR Not detected (Not Detect) Stool Giardia Lamblia PCR Not detected (Not Detect) Stool Sapovirus (PCR) Not detected (Not Detect) Stl P. shigelloides PCR Not detected (Not Detect) St Y.enterocolitica PCR Not detected (Not Detect) Stool Vibrio (PCR) Not detected (Not Detect) Stl Vibrio cholerae PCR Not detected (Not Detect) Stl Enteroaggr Ecoli PCR Not detected (Not Detect) Stl Norovirus GI/GII PCR Not detected (Not Detect) Campylobacter (PCR) Not detected (Not Detect) C. difficile Tox (PCR) Not detected (Not Detect) Salmonella (PCR) Not detected (Not Detect) Urine Dip Bedside Urine Glucose Negative Bedside Urine Bilirubin - Negative Bedside Urine Ketone - Negative Urine Specific [place] 1.015 Bedside Urine Occult Blood - Negative Bedside Urine pH 7.0 Bedside Urine Protein - Negative Bedside Urine Urobilinogen - Negative Bedside Urine Nitrite - Negative Bedside Urine Leukocytes - Negative Esterase Imaging Data CT scan - abdomen/pelvis: Radiologist's Impression: PROCEDURE:? CT ABDOMEN PELVIS W CON ? INDICATIONS:? diarrhea x 1 month, hx appy, splenectomy, lymphoma ? TECHNIQUE:? After the administration of intravenous contrast, axial sections acquired from the lung bases to the pubic symphysis.? Coronal and sagittal reformats were performed.? For radiation dose reduction, the following was used:? automated exposure control, adjustment of mA and/or kV according to patient size.? ? COMPARISON:? None. ? FINDINGS:? Image quality:? Excellent.? ? Lung bases:? Unremarkable. Heart:? No significant findings. ? ABDOMEN: Liver:? Unremarkable.? ? Gallbladder:? Decompressed. Biliary ducts:? Unremarkable.? ? Pancreas:? Unremarkable.? ? Spleen:? Absent Adrenal Glands:? Unremarkable.? ? Kidneys and Ureters:? Mild cystic changes of the kidneys..? ? ? Stomach and Bowel:? Stomach, small bowel loops, and colon are unremarkable.? Scattered diverticulosis without evidence of acute diverticulitis.? The appendix is not identified. Peritoneum:? No abnormal intraperitoneal fluid.? No free air.? ? Ventral Wall: ? No hernias.? Abdominal Nodes:? Nonspecific lymphadenopathy in the samantha hepatitis. Vessels:? Aorta and inferior vena cava are normal in size.? ? PELVIS: Pelvic Organs:? Unremarkable.? ? Bladder:? Unremarkable.? ? Pelvic Nodes: No enlarged lymph nodes.? Miscellaneous: No hernias are seen. ? ? ? Bones:? Unremarkable.? Prominent spondylitic changes of the lumbar spine.? Right hip prosthesis results in significant streak artifact. ? ? IMPRESSION:? 1. Diverticulosis without evidence of acute diverticulitis. 2. Nonspecific samantha hepatic lymphadenopathy, correlate for enteritis. 3. Sequela of prior splenectomy. 4. Degenerative changes of the lumbar spine.? ? Dictated by: Good Olvera M.D. on 11/23/2022 at 12:26 ? ? Approved by: Good Olvera M.D. on 11/23/2022 at 12:32 ? MDM Narrative Medical decision making narrative: Chief Complaint: diarrhea for over 1 month Independent historian: patient Multiple etiologies for patient's symptoms considered including, but not limited to: Pancolitis, C diff colitis, diverticulitis, mesenteric ischemia, mal ignancy, viral illness, parasitic/toxic/infectious diarrhea, pancreatitis, thyroid storm although unlikely, patient's without tachycardia, abdominal pain, or abnormal stool other than having loose stools daily. I have independently reviewed the patient's vital signs and nursing notes as well as prior records if available. Pertinent records include: Assess patient's prior lab work for chronicicity My interpretation of lab studies: Patient has leukocytosis consistent with prior, mild anemia which is improved from priors, hemoglobin 11.3 with hematocrit 34.4, no thrombocytopenia or left shift, no electrolyte abnormalities, no elevation of liver enzymes including normal total bilirubin,, patient's ESR is elevated to 31, no priors to compare to, normal CRP without elevation, normal lipase and amylase My interpretation of imaging: CT abdomen and pelvis with contrast Abdominal exam without peritoneal signs, currently euvolemic, doubt infectious bacteria such as C diff (no recent antibiotics), shiga toxin (nonbloody), no recent travel, patient is not immunocompromised. Diarrhea is nonbloody, less likely to be an inflammatory bowel disease. No evidence of surgical abdomen or other acute medical emergency including bowel obstruction, viscous perforation, vascular emergency, atypical appendicitis, atypical ACS, acute cholecystitis, thyrotoxicosis, or diverticulitis at this time presentation not consistent with other acute emergent causes of vomiting/diarrhea at this time. Course of care: Patient's GI panel came back positive for EPEC and Cryptosporidium. This is reportable, patient does not have systemic symptoms of illness, discussed with pharmacy treatment options and after lengthy discussion of approved medications versus available medications to treat his infectious diarrhea, azithromycin was the only medication available nearby. Discussed option of treatment with nit azoxanide but patient does not have known history of HIV. He was not tested today, the risk of macrolides with calcineurin inhibitors can prolong the QT interval and this was avoided today. Patient has scheduled follow-up with [facility] next week for colonoscopy. Gave him 3 days of azithromycin 500 mg per pharmacies recommendation. Social considerations that may affect disposition: none Questions are addressed and there is agreement with the plan and for follow-up. I consulted with the ED attending physician Dr. Kidd as needed for higher level of care considerations and they were available for discussion and recommendations regarding plan of care and diagnostic testing. Patient is appropriate for outpatient management. <Stevenson Kidd, DO - Last Filed: 11/23/22 15:12> Lab Data Labs: Lab Results 11/23/22 11/23/22 11/23/22 Range/Units 11:43 11:43 11:43 WBC 17.0 H (4.5-11.0) X10^3/uL RBC 3.70 L (4.5-5.9) X10^6/uL Hgb 11.3 L (13.5-17.5) g/dL Hct 34.4 L (41-53) % MCV 92.9 (80-100) fL MCH 30.6 (26-34) PG MCHC 32.9 (30-36) % RDW 21.5 H (11.6-14.8) % Plt Count 240 (150-400) X10^3/uL Neut % (Auto) Not Reportable Lymph % (Auto) Not Reportable [place] % (Auto) Not Reportable Eos % (Auto) Not Reportable Baso % (Auto) Not Reportable Lymph # (Auto) Not Reportable [place] # (Auto) Not Reportable Baso # (Auto) Not Reportable Total Counted 100 Seg Neutrophils % 14.0 L (38-70) % Lymphocytes % (Manual) 73.0 H (25-45) % Atypical Lymphs % 2.0 H ( - 0) % Monocytes % (Manual) 10.0 (2-11) % Eosinophils % (Manual) 1.0 L (2-4) % Neutrophils # (Manual) 2380 L (8713-7940) /uL Nucleated RBCs 1 H ( - 0) #/Diff RBC Morphology See below Anisocytosis 2+ H Target Cells 1+ H ESR 31 H (0-15) MM/HR Sodium 136 L (137-145) mmol/L Potassium 4.6 (3.4-5.1) mmol/L Chloride 99 (98-107) mmol/L Carbon Dioxide 32 (22-32) mmol/L BUN 17 (9-20) mg/dL Creatinine 0.69 (0.66-1.25) mg/dL Estimated GFR > 60 (>60) mL/min BUN/Creatinine Ratio 24.6 H (6-22) Glucose 87 (80-110) mg/dL Calcium 8.9 (8.4-10.2) mg/dL Magnesium (1.6-2.3) mg/dL Total Bilirubin 0.7 (0.2-1.3) mg/dL AST 47 (17-59) IU/L ALT 30 (<50) IU/L Alkaline Phosphatase 77 (38-126) U/L C-Reactive Protein (<1.0) mg/dL Total Protein 7.0 (6.3-8.2) g/dL Albumin 4.0 (3.5-5.0) g/dL Globulin 3.0 (1.7-4.1) g/dL Albumin/Globulin Ratio 1.3 (1.0-2.8) Amylase (30-110) U/L Lipase 50 (23-300) U/L TSH (0.47-4.68) uIU/mL Stl C. cayetanensis PCR (Not Detect) Stool Rotavirus (PCR) (Not Detect) Stool Adenovirus (PCR) (Not Detect) Stool Astrovirus (PCR) (Not Detect) Stool Cryptosporidium PCR (Not Detect) Stl E.coli Shiga Tox PCR (Not Detect) St Sh/Enteroin Ecoli PCR (Not Detect) Stool E coli O157 PCR Stl Enterotoxigenic E PCR (Not Detect) Stool EPEC (PCR) (Not Detect) Stl E. histolytica PCR (Not Detect) Stool Giardia Lamblia PCR (Not Detect) Stool Sapovirus (PCR) (Not Detect) Stl P. shigelloides PCR (Not Detect) St Y.enterocolitica PCR (Not Detect) Stool Vibrio (PCR) (Not Detect) Stl Vibrio cholerae PCR (Not Detect) Stl Enteroaggr Ecoli PCR (Not Detect) Stl Norovirus GI/GII PCR (Not Detect) Campylobacter (PCR) (Not Detect) C. difficile Tox (PCR) (Not Detect) Salmonella (PCR) (Not Detect) 11/23/22 11/23/22 11/23/22 Range/Units 11:43 11:43 11:43 WBC (4.5-11.0) X10^3/uL RBC (4.5-5.9) X10^6/uL Hgb (13.5-17.5) g/dL Hct (41-53) % MCV (80-100) fL MCH (26-34) PG MCHC (30-36) % RDW (11.6-14.8) % Plt Count (150-400) X10^3/uL Neut % (Auto) Lymph % (Auto) [place] % (Auto) Eos % (Auto) Baso % (Auto) Lymph # (Auto) [place] # (Auto) Baso # (Auto) Total Counted Seg Neutrophils % (38-70) % Lymphocytes % (Manual) (25-45) % Atypical Lymphs % ( - 0) % Monocytes % (Manual) (2-11) % Eosinophils % (Manual) (2-4) % Neutrophils # (Manual) (8316-0659) /uL Nucleated RBCs ( - 0) #/Diff RBC Morphology Anisocytosis Target Cells ESR (0-15) MM/HR Sodium (137-145) mmol/L Potassium (3.4-5.1) mmol/L Chloride (98-107) mmol/L Carbon Dioxide (22-32) mmol/L BUN (9-20) mg/dL Creatinine (0.66-1.25) mg/dL Estimated GFR (>60) mL/min BUN/Creatinine Ratio (6-22) Glucose (80-110) mg/dL Calcium (8.4-10.2) mg/dL Magnesium 2.1 (1.6-2.3) mg/dL Total Bilirubin (0.2-1.3) mg/dL AST (17-59) IU/L ALT (<50) IU/L Alkaline Phosphatase (38-126) U/L C-Reactive Protein 0.7 (<1.0) mg/dL Total Protein (6.3-8.2) g/dL Albumin (3.5-5.0) g/dL Globulin (1.7-4.1) g/dL Albumin/Globulin Ratio (1.0-2.8) Amylase 60 (30-110) U/L Lipase (23-300) U/L TSH 2.11 (0.47-4.68) uIU/mL Stl C. cayetanensis PCR (Not Detect) Stool Rotavirus (PCR) (Not Detect) Stool Adenovirus (PCR) (Not Detect) Stool Astrovirus (PCR) (Not Detect) Stool Cryptosporidium PCR (Not Detect) Stl E.coli Shiga Tox PCR (Not Detect) St Sh/Enteroin Ecoli PCR (Not Detect) Stool E coli O157 PCR Stl Enterotoxigenic E PCR (Not Detect) Stool EPEC (PCR) (Not Detect) Stl E. histolytica PCR (Not Detect) Stool Giardia Lamblia PCR (Not Detect) Stool Sapovirus (PCR) (Not Detect) Stl P. shigelloides PCR (Not Detect) St Y.enterocolitica PCR (Not Detect) Stool Vibrio (PCR) (Not Detect) Stl Vibrio cholerae PCR (Not Detect) Stl Enteroaggr Ecoli PCR (Not Detect) Stl Norovirus GI/GII PCR (Not Detect) Campylobacter (PCR) (Not Detect) C. difficile Tox (PCR) (Not Detect) Salmonella (PCR) (Not Detect) 11/23/22 Range/Units 12:05 WBC (4.5-11.0) X10^3/uL RBC (4.5-5.9) X10^6/uL Hgb (13.5-17.5) g/dL Hct (41-53) % MCV (80-100) fL MCH (26-34) PG MCHC (30-36) % RDW (11.6-14.8) % Plt Count (150-400) X10^3/uL Neut % (Auto) Lymph % (Auto) [place] % (Auto) Eos % (Auto) Baso % (Auto) Lymph # (Auto) [place] # (Auto) Baso # (Auto) Total Counted Seg Neutrophils % (38-70) % Lymphocytes % (Manual) (25-45) % Atypical Lymphs % ( - 0) % Monocytes % (Manual) (2-11) % Eosinophils % (Manual) (2-4) % Neutrophils # (Manual) (7659-4259) /uL Nucleated RBCs ( - 0) #/Diff RBC Morphology Anisocytosis Target Cells ESR (0-15) MM/HR Sodium (137-145) mmol/L Potassium (3.4-5.1) mmol/L Chloride (98-107) mmol/L Carbon Dioxide (22-32) mmol/L BUN (9-20) mg/dL Creatinine (0.66-1.25) mg/dL Estimated GFR (>60) mL/min BUN/Creatinine Ratio (6-22) Glucose (80-110) mg/dL Calcium (8.4-10.2) mg/dL Magnesium (1.6-2.3) mg/dL Total Bilirubin (0.2-1.3) mg/dL AST (17-59) IU/L ALT (<50) IU/L Alkaline Phosphatase (38-126) U/L C-Reactive Protein (<1.0) mg/dL Total Protein (6.3-8.2) g/dL Albumin (3.5-5.0) g/dL Globulin (1.7-4.1) g/dL Albumin/Globulin Ratio (1.0-2.8) Amylase (30-110) U/L Lipase (23-300) U/L TSH (0.47-4.68) uIU/mL Stl C. cayetanensis PCR Not detected (Not Detect) Stool Rotavirus (PCR) Not detected (Not Detect) Stool Adenovirus (PCR) Not detected (Not Detect) Stool Astrovirus (PCR) Not detected (Not Detect) Stool Cryptosporidium PCR Detected H (Not Detect) Stl E.coli Shiga Tox PCR Not detected (Not Detect) St Sh/Enteroin Ecoli PCR Not detected (Not Detect) Stool E coli O157 PCR Not Reportable Stl Enterotoxigenic E PCR Not detected (Not Detect) Stool EPEC (PCR) Detected H (Not Detect) Stl E. histolytica PCR Not detected (Not Detect) Stool Giardia Lamblia PCR Not detected (Not Detect) Stool Sapovirus (PCR) Not detected (Not Detect) Stl P. shigelloides PCR Not detected (Not Detect) St Y.enterocolitica PCR Not detected (Not Detect) Stool Vibrio (PCR) Not detected (Not Detect) Stl Vibrio cholerae PCR Not detected (Not Detect) Stl Enteroaggr Ecoli PCR Not detected (Not Detect) Stl Norovirus GI/GII PCR Not detected (Not Detect) Campylobacter (PCR) Not detected (Not Detect) C. 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 Treatment for this is azithromycin x3 days, if you still have symptoms, please return after this for another stool sample to test for Cryptosporidium. You may benefit from a medication called nitazoxanide, if it does not get better on azithromycin, please communicate this to [facility] prior to your appointment. Please stay hydrated, the rest of your lab work overall is reassuring. CT scan shows some mild inflammation near your liver, this is due to the enteritis/bowel inflammation from this infection. All of your lab work is reassuring that you do not have an inflammatory or infectious process going on. No electrolyte abnormalities, normal kidney function, normal liver enzymes, normal amylase and lipase. I have forwarded this no to [facility] office, please follow-up with them schedule colonoscopy. If you develop a fever chills, please come back to the emergency department. *What to do: *Please continue to take your regular medications as directed. [ x] New medication prescriptions sent to your pharmacy: [[facility]] [ ] New medication written as a paper prescription [ ] No new medications given *Please call and schedule follow up with your primary care provider in 2-3 days, at least for an update. Let them know you were seen in the Emergency Department for the above problem. We will electronically transmit a record of today's note if your PCP or specialist is in our system. *If you do not have a primary care provider please contact [phone] to establish care with one of the [facility] primary care providers. *Return to the Emergency Department for worsening symptoms, inability to keep liquids down, fever greater than 101F, chills, or other concerning symptom. Prescriptions: New azithromycin 500 mg tablet 500 mg PO DAILY 3 Days Qty: 3 0RF No Action acetaminophen 325 mg Tablet 650 mg PO Q6HR Qty: 60 0RF aspirin 81 mg Tablet,Delayed Release (Dr/Ec) 81 mg PO BID Qty: 84 0RF docusate sodium 100 mg Capsule 100 mg PO BID Qty: 60 0RF metoprolol succinate 50 mg Tablet Extended Release 24 Hr 50 mg PO DAILY cholecalciferol (vitamin D3) [Vitamin D3] 25 mcg (1,000 unit) Tablet 25 mcg PO DAILY rosuvastatin 40 mg Tablet 40 mg PO DAILY ezetimibe 10 mg Tablet 10 mg PO DAILY celecoxib [Celebrex] 200 mg capsule 200 mg PO DAILY Qty: 30 2RF Hold Instructions: Home Medication placed on hold at Doctor's office Referrals: [facility] [Provider Group] Alfred Solis MD [Primary Care Provider] - Stand Alone Forms: Patient Portal/API <Stevenson Kidd, - Last Filed: 11/23/22 15:12> [facility]: Dr Kidd Co-Sign Statement: I was available for consultation during this patient's emergency department visit. This chart is signed by myself for adm inistrative purposes only. I did not have direct contact with this patient during this visit. They were seen independently by the APC.
[2022-11-23 12:30] LABS: Anisocytosis 2+; Target Cells 1+
[2022-11-23 12:44] LABS: Amylase 60 U/L (30-110); C-Reactive Protein Quant 0.7 mg/dL (<1.0)
[2022-11-23 12:52] LABS: Erythrocyte Sedimentation Rate 31 MM/HR (0-15); Magnesium 2.1 mg/dL (1.6-2.3)
[2022-11-23 14:00] LABS: Thyroid Stimulating Hormone 2.11 uIU/mL (0.47-4.68)
[2022-11-23 14:29] LABS: Adenovirus F 40/41 Not Detected (Not Detect); Astrovirus Not Detected (Not Detect); Campylobacter Not Detected (Not Detect); Clostridium difficile toxin AB Not Detected (Not Detect); Cyclospora cayetanensis Not Detected (Not Detect); Entamoeba histolytica Not Detected (Not Detect); Enteroaggregative E.coli Not Detected (Not Detect); Enteropathogenic E.coli Detected (Not Detect); Enterotoxigenic E.coli It/st Not Detected (Not Detect); Giardia lamblia Not Detected (Not Detect); Norovirus GI/GII Not Detected (Not Detect); Plesiomonsa shigelloides Not Detected (Not Detect); Rotavirus A Not Detected (Not Detect); Salmonella Not Detected (Not Detect); Sapovirus Not Detected (Not Detect); Shiga-like toxin-prod E.coli Not Detected (Not Detect); Shigella/Enteroinvasive E.coli Not Detected (Not Detect); Vibrio Not Detected (Not Detect); Vibrio cholerae Not Detected (Not Detect); Yersinia enterocolitica Not Detected (Not Detect)
[2022-11-23 14:31] LABS: Cryptosporidium Detected (Not Detect)
[2022-11-23] MEDS: AZITHROMYCIN 250 MG TABLET 500 MG PO (14:46)
[2022-11-23 14:52] VITALS: BP 160/84; PULSE 55; RESP 18; O2SAT 99
== END 2022-11-23 15:03 | disposition home or self-care (01) ==
PROVIDERS: Emergency Medicine; Emergency Provider Nurse Practitioner Critical Care Medicine; PCP Family Medicine
DX: A04.0 Enteropathogenic Escherichia coli infection (principal); A07.2 Cryptosporidiosis
CPT/HCPCS: 36415; 74177; 80053; 81003; 82150; 83690; 83735; 84443; 85007; 85025; 85651; 86140; 87507; 96360; 99284; Q9967

== ENCOUNTER 2022-11-29 14:22 | Emergency (ER) | payer OTHER, SELFPAY ==
[2022-06-26 14:41] VITALS: BMI 26.9
[2022-11-29 14:31] VITALS: BP 133/60; PULSE 58; RESP 17; TEMP 36.6; O2SAT 99; BMI 26.6
--- NOTE | 2022-11-29 17:38 | PC.NURSE ---
Pt called from [facility] x 3 without answer.
== END 2022-11-29 17:48 | disposition left against medical advice (07) ==
PROVIDERS: Emergency Provider Emergency Medicine; PCP Family Medicine
DX: R19.7 Diarrhea, unspecified (principal)
CPT/HCPCS: 99281

== ENCOUNTER 2022-12-12 09:17 | Day surgery (SDC) | payer OTHER, SELFPAY ==
[2022-06-26 14:41] VITALS: BMI 26.9
--- NOTE | 2022-12-12 | PATH_ITS ---
[facility] Accession Number: [id number] No. of containers..01 Tissue . 01 Material submitted: . colon - TRANSVERSE POLYP . 01 Diagnosis: Transverse Colon Polyp: Vegetable material. No tissue identified. [facility] 12/19/2022 1255 Local . 01 Electronically signed: . Landen Valera MD, PhD, Pathologist NPI- [id number] . 01 Gross description: . TRANSVERSE POLYP: Received in formalin are multiple fragment(s) of romano, soft tissue measuring 1.0 x 0.3 x 0.2 cm in aggregate submitted entirely in 1 cassette(s) /[facility] 12/17/2022 1646 Local . 01 Pathologist provided ICD-10: K63.5 . 01 CPT . 423060 Specimen Comment: A courtesy copy of this report has been sent to [phone] Performed at: 01 [facility] [address] [place] [address], [place], [place] [id number] MD Pete Aguilar MD Phone: [phone]
[2022-12-12 09:32] VITALS: BP 145/67; PULSE 48; RESP 19; TEMP 36.2; O2SAT 100; BMI 25.8
[2022-12-12] MEDS: LACTATED RINGERS 1,000 ML 100 ML IV (09:47)
--- NOTE | 2022-12-12 11:05 | PM.HP.1 ---
History of Present Illness History of Present Illness Date Patient Seen: 12/12/22 Time Patient Seen: 11:05 Chief complaint: SDC Narrative: Yahir is a 77 year man with a history of colon polyps. His mother was diagnosed with colon cancer in her 70s. He was recently treated for traveler's diarrhea. [facility] Medical History (Updated 12/12/22 @ 11:06 by Alfred Caldwell MD) A-fib Degenerative joint disease of right hip Diarrhea Distal radius fracture, left Facet arthropathy, lumbar Hip fx Lumbar foraminal stenosis Lumbar radiculopathy Surgical History (Updated 12/12/22 @ 09:38 by Mohit Díaz RN) H/O splenectomy H/O wrist surgery History of appendectomy History of hernia surgery History of total right hip arthroplasty Hx of heart artery stent Social History household members: spouse Smoking Status: Former smoker alcohol intake: current Meds Home Medications and Allergies Home Medications Medication Instructions Recorded Confirmed Type cholecalciferol (vitamin D3) 25 25 mcg PO DAILY 05/25/20 12/12/22 History mcg (1,000 unit) tablet (Vitamin D3) metoprolol succinate 50 mg 50 mg PO DAILY 05/25/20 12/12/22 History tablet,extended release 24 hr rosuvastatin 40 mg tablet 40 mg PO DAILY 01/25/21 12/12/22 History ezetimibe 10 mg tablet 10 mg PO DAILY 02/18/22 12/12/22 History acetaminophen 325 mg tablet 650 mg PO Q6HR #60 tabs 06/15/22 11/20/22 Rx aspirin 81 mg tablet,delayed 81 mg PO BID #84 tabs 06/15/22 12/12/22 Rx release Allergies Allergy/AdvReac Type Severity Reaction Status Date / Time oxycodone Allergy Mild itching Verified 11/29/22 14:38 Exam Vital Signs (past 8 hours): - 12/12/22 09:32 Temperature 97.2 F L Pulse Rate 48 L Respiratory Rate 19 Blood Pressure 145/67 H Pulse Oximetry 100 Oxygen Delivery Method Room Air Oxygen Delivery Method Room Air Const General: healthy appearing Assessment & Plan Assessment and plan (1) History of colon polyps: Status: Acute Plan We reviewed the risks and benefits of colonoscopy for colon cancer screening with a history of polyps and he would like to proceed
--- NOTE | 2022-12-12 12:02 | PM.OP.COLON ---
Operative Date/Time/Diagnoses Date of procedure: 12/12/22 Time of procedure: 12:02 Pre-op diagnosis: History of polyps Post-op diagnosis: same Procedure & Clinicians Study performed: Colonoscopy Same procedure as scheduled: Yes Surgeon: Alfred Caldwell Procedure Notes Procedure in detail: Surgeon: Alfred Caldwell MD Anesthesia: Dr. Kaushik CLARK Procedure: The patient was brought to the endoscopy suite, placed in left lateral decubitus position. The patient was connected to monitoring devices. A time-out was performed. Sedation was administered. Once the patient was adequately sedated, a digital rectal exam was performed and was normal. The scope was then inserted and advanced to the cecum where the appendiceal orifice was identified and photographed. The scope was then slowly withdrawn over greater than 6 minutes. The mucosa was thoroughly inspected. There was a 5 mm polyp in the transverse colon removed with a cold snare. The scope was retroflexed in the rectum. No other abnormalities were seen. The scope was straightened and removed. The patient was awakened and brought to recovery. Scope withdrawal time: 10 minutes Sedation time: 40 minutes EBL: 3 mL Findings: 5 mm polyp in the transverse colon Post-procedure Disposition: PACU
[2022-12-12 12:04] VITALS: BP 102/47; PULSE 51; RESP 16; TEMP 36.8; O2SAT 98
[2022-12-12 12:07] VITALS: BP 102/47; PULSE 53; RESP 16; TEMP 36.8; O2SAT 98
[2022-12-12 12:16] VITALS: BP 131/46; PULSE 77; RESP 16; TEMP 36.8; O2SAT 98
== END 2022-12-12 12:21 | disposition home or self-care (01) ==
PROVIDERS: PCP Family Medicine; Referring Provider Surgery; Visit Provider Surgery
PROC: 0DJD8ZZ Inspection of Lower Intestinal Tract, Via Natural or Artificial Opening Endoscopic (ICD-10-PCS; CPT 45378; principal; 2022-12-12 10:15)
DX: Z12.11 Encounter for screening for malignant neoplasm of colon (principal); Z86.010 Personal history of colon polyps
CPT/HCPCS: 45385; J2704; J3010

== ENCOUNTER 2022-12-19 09:29 | Emergency (ER) | payer OTHER, SELFPAY ==
[2022-06-26 14:41] VITALS: BMI 26.9
[2022-12-19 09:31] VITALS: BP 167/70; PULSE 50; RESP 15; TEMP 36.4; O2SAT 100; BMI 25.8
--- NOTE | 2022-12-19 11:12 | ED_ITS ---
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 Patient states that his symptoms have been intermittent a few weeks ago he was doing fairly well and things seemed to have normalized he had a colonoscopy last week and since that time has been having loose stools multiple times a day. He is endorsing 2 loose stools a day they are occasionally watery although he notes they are occasionally somewhat formed they are usually just quite loose. He states they are brown in color. Patient is concerned that his infections were not completely treated with the antibiotics he received. States he does not have his colonoscopy results back yet but did have 1 polyp removed. He denies urgency pain with bowel movements or any abdominal pain. He also denies blood in his stool, mucus in his stool, change in appetite, nausea, vomiting. Related Data Home Medications Medication Instructions Recorded Confirmed cholecalciferol (vitamin D3) 25 25 mcg PO DAILY 05/25/20 12/12/22 mcg (1,000 unit) tablet (Vitamin D3) metoprolol succinate 50 mg 50 mg PO DAILY 05/25/20 12/12/22 tablet,extended release 24 hr rosuvastatin 40 mg tablet 40 mg PO DAILY 01/25/21 12/12/22 ezetimibe 10 mg tablet 10 mg PO DAILY 02/18/22 12/12/22 Previous Rx's Medication Instructions Recorded acetaminophen 325 mg tablet 650 mg PO Q6HR #60 tabs 06/15/22 aspirin 81 mg tablet,delayed 81 mg PO BID #84 tabs 06/15/22 release ciprofloxacin HCl 500 mg tablet 500 mg PO Q12H 10 days #20 tabs 12/19/22 Allergies Allergy/AdvReac Type Severity Reaction Status Date / Time oxycodone Allergy Mild itching Verified 12/19/22 09:31 Review of Systems <Swapna Arciniega PA-C - Last Filed: 12/19/22 15:07> Review of Systems Narrative: See HPI Patient History <Swapna Arciniega PA-C - Last Filed: 12/19/22 15:07> Medical History A-fib Degenerative joint disease of right hip Diarrhea Distal radius fracture, left Facet arthropathy, lumbar Hip fx Lumbar foraminal stenosis Lumbar radiculopathy Surgical History H/O splenectomy H/O wrist surgery History of appendectomy History of hernia surgery History of total right hip arthroplasty Hx of heart artery stent Social History household members: spouse Smoking Status: Former smoker alcohol intake: current Smoking Status: Former smoker alcohol intake frequency: 0-2 drinks per day Alcohol type: wine Substance Use Type: does not use Exam <Swapna Arciniega PA-C - Last Filed: 12/19/22 15:07> Narrative Exam Narrative: GENERAL: 77 year old patient appears stated age. Well-developed patient, in no obvious distress. HEAD: Atraumatic. Normocephalic. EYES: Pupils equal round and reactive. Extraocular motions intact. No scleral icterus. No injection or drainage. ENT: Nose without bleeding, purulent drainage. Airway patent. NECK: Trachea midline. Non tender CARDIOVASCULAR: Regular rate and rhythm without murmurs, gallops, or rubs. RESPIRATORY: Clear to auscultation. Breath sounds equal bilaterally. No wheezes, rales, or rhonchi. GASTROINTESTINAL: Abdomen soft, non-tender, nondistended. EXTREMITIES: No edema or joint tenderness. BACK: Nontender without deformity or crepitance. No flank tenderness. NEURO: AOx3. SKIN: No rash or erythema of visible areas Initial Vital Signs Initial Vital Signs: Vital Signs Temperature 97.5 F L 12/19/22 09:31 Pulse Rate 50 L 12/19/22 09:31 Respiratory Rate 15 12/19/22 09:31 Blood Pressure 167/70 H 12/19/22 09:31 Pulse Oximetry 100 12/19/22 09:31 Oxygen Delivery Method Room Air 12/19/22 09:31 <Jennifer Ann DO - Last Filed: 12/19/22 18:58> Initial Vital Signs Initial Vital Signs: Vital Signs Temperature 97.5 F L 12/19/22 09:31 Pulse Rate 50 L 12/19/22 09:31 Respiratory Rate 15 12/19/22 09:31 Blood Pressure 167/70 H 12/19/22 09:31 Pulse Oximetry 100 12/19/22 09:31 Oxygen Delivery Method Room Air 12/19/22 09:31 Course <Swapna Arciniega PA-C - Last Filed: 12/19/22 15:07> Orders Ordered: ED Orders 12/19/22 11:18 GI Panel (Film Array) Stat Vital Signs Vital signs: Vital Signs - 8 hr 12/19/22 12:41 Pulse Rate 49 L Pulse Oximetry 99 Oxygen Delivery Method Room Air <Jennifer Ann DO - Last Filed: 12/19/22 18:58> Orders Ordered: ED Orders 12/19/22 11:18 GI Panel (Film Array) Stat Vital Signs Vital signs: Vital Signs - 8 hr 12/19/22 12:41 Pulse Rate 49 L Pulse Oximetry 99 Oxygen Delivery Method Room Air MDM - Nausea/Vomiting/Diarrhea <JORDY Styles Last Filed: 12/19/22 15:07> Differential Diagnosis Differential diagnosis: Likely traveler's diarrhea, gastroenteritis and other Medical Records Attestation: I reviewed the patient's medical records. Lab Data Attestation: I reviewed the patient's lab results. Labs: Lab Results 12/19/22 Range/Units 11:18 Stl C. cayetanensis PCR Not detected (Not Detect) Stool Rotavirus (PCR) Not detected (Not Detect) Stool Adenovirus (PCR) Not detected (Not Detect) Stool Astrovirus (PCR) Not detected (Not Detect) Stool Cryptosporidium PCR Not detected (Not Detect) Stl E.coli Shiga Tox PCR Not detected (Not Detect) St Sh/Enteroin Ecoli PCR Not detected (Not Detect) Stool E coli O157 PCR Not Reportable Stl Enterotoxigenic E PCR Not detected (Not Detect) Stool EPEC (PCR) Detected H (Not Detect) Stl E. histolytica PCR Not detected (Not Detect) Stool Giardia Lamblia PCR Not detected (Not Detect) Stool Sapovirus (PCR) Not detected (Not Detect) Stl P. shigelloides PCR Not detected (Not Detect) St Y.enterocolitica PCR Not detected (Not Detect) Stool Vibrio (PCR) Not detected (Not Detect) Stl Vibrio cholerae PCR Not detected (Not Detect) Stl Enteroaggr Ecoli PCR Not detected (Not Detect) Stl Norovirus GI/GII PCR Not detected (Not Detect) Campylobacter (PCR) Not detected (Not Detect) C. difficile Tox (PCR) Not detected (Not Detect) Salmonella (PCR) Not detected (Not Detect) Treatment and disposition Shared decision making:: Shared decision-making was used to determine the patient's plan of care in the emergency department and plan for follow-up and treatment. MDM Narrative Medical decision making narrative: This is a very well-appearing 77-year-old male who developed symptoms 2 months ago while in [place] of urgency diarrhea and abdominal pain, he was seen in this ER on November 20 and found to have E pick as well as Cryptosporidium placed on azithromycin after consultation with pharmacy for 3 day course 500 mg daily. Patient endorses no significant improvement in his loose stools although he denies any ongoing abdominal pain or other symptoms. He is very well-appearing today on exam and has no concerning symptoms such as fevers pain blood in his stool or other, repeat GI panel is obtained today from the ER for further evaluation. Ultimately given duration of time to return results and the fact the patient is very well-appearing no concerning other findings or need for additional labs or imaging he is released from the emergency department pending results. He does come back positive for E pack on his GI panel and discussed options with the patient advised him we are sending a prescription for ciprofloxacin for 5 days as this is the treatment and he has already failed azithromycin. Contacted the patient and advised him of findings and recommended follow-up plan with PCP and potential repeat GI panel in 2-4 weeks. All questions answered. Return precautions provided. <Jennifer Ann, DO - Last Filed: 12/19/22 18:58> Lab Data Labs: Lab Results 12/19/22 Range/Units 11:18 Stl C. cayetanensis PCR Not detected (Not Detect) Stool Rotavirus (PCR) Not detected (Not Detect) Stool Adenovirus (PCR) Not detected (Not Detect) Stool Astrovirus (PCR) Not detected (Not Detect) Stool Cryptosporidium PCR Not detected (Not Detect) Stl E.coli Shiga Tox PCR Not detected (Not Detect) St Sh/Enteroin Ecoli PCR Not detected (Not Detect) Stool E coli O157 PCR Not Reportable Stl Enterotoxigenic E PCR Not detected (Not Detect) Stool EPEC (PCR) Detected H (Not Detect) Stl E. histolytica PCR Not detected (Not Detect) Stool Giardia Lamblia PCR Not detected (Not Detect) Stool Sapovirus (PCR) Not detected (Not Detect) Stl P. shigelloides PCR Not detected (Not Detect) St Y.enterocolitica PCR Not detected (Not Detect) Stool Vibrio (PCR) Not detected (Not Detect) Stl Vibrio cholerae PCR Not detected (Not Detect) Stl Enteroaggr Ecoli PCR Not detected (Not Detect) Stl Norovirus GI/GII PCR Not detected (Not Detect) Campylobacter (PCR) Not detected (Not Detect) C. difficile Tox (PCR) Not detected (Not Detect) Salmonella (PCR) Not detected (Not Detect) Discharge Plan Departure Patient Disposition: Home Clinical Impression: Diarrhea Activity Restrictions/Additional Instructions: *You have been diagnosed with [results pending] *What to do: *Please continue to take your regular medications as directed. [ ] New medication prescriptions sent to your pharmacy: [ ] [ ] New medication written as a paper prescription [ ] No new medications given *Please follow up with your primary care provider in 2-3 days, call for an appointment. Let them know you were seen in the Emergency Department and that we ask that you be seen in follow up. We will electronically transmit a record of today's note if your PCP is in our system. Due to the time required to get results of your stool test, I am not going to hold her here at the emergency department today if we do get a result back showing that you still have Cryptosporidium or EPEC in your stool I will certainly prescribe additional antibiotics. However if these do not come back positive today it is likely that your symptoms are simply due to the fact that you took antibiotics recently as well as the fact that you have recently had Cryptosporidium and EPEC and it sometimes takes time for your GI system to adjust after this kind of illness. Your normal healthy bacteria of the got can take time to reform and you may continue to have some loose stools for some time. It is definitely reasonable to follow-up with your primary care strongly encouraged this, you may also consider seeing gastroenterology if you have persistent symptoms without an explanation. Because you results are not yet back, please wait for a call from me today I will give you a call once I have the results of course if you have not heard from us in about 3 hours time I recommend you call the emergency department back and see if we can provide you with the results. *If you do not have a primary care provider please contact the [facility] Resource line at [phone]. They will ask some questions about your medical history and help get you set up with a doctor in the community. *Return to Emergency Department if you should have any new, worsening or concerning symptoms, such as [fever greater than 101 F, shaking chills, worsening pain, persistent vomiting or other bothersome symptoms] Prescriptions: New ciprofloxacin HCl 500 mg tablet 500 mg PO Q12H 10 Days Qty: 20 0RF No Action acetaminophen 325 mg Tablet 650 mg PO Q6HR Qty: 60 0RF aspirin 81 mg Tablet,Delayed Release (Dr/Ec) 81 mg PO BID Qty: 84 0RF metoprolol succinate 50 mg Tablet Extended Release 24 Hr 50 mg PO DAILY cholecalciferol (vitamin D3) [Vitamin D3] 25 mcg (1,000 unit) Tablet 25 mcg PO DAILY rosuvastatin 40 mg Tablet 40 mg PO DAILY ezetimibe 10 mg Tablet 10 mg PO DAILY Referrals: Alfred Solis MD [Primary Care Provider] - Stand Alone Forms: Patient Portal/API <Jennifer Ann DO - Last Filed: 12/19/22 18:58> Cosign ED Attending [facility] Attestation: I was immediately available in the department for consultation. Documentation has been reviewed.
[2022-12-19 12:41] VITALS: PULSE 49; O2SAT 99
[2022-12-19 14:24] LABS: Campylobacter Not Detected (Not Detect); Clostridium difficile toxin AB Not Detected (Not Detect); Plesiomonsa shigelloides Not Detected (Not Detect); Salmonella Not Detected (Not Detect); Vibrio Not Detected (Not Detect); Vibrio cholerae Not Detected (Not Detect); Yersinia enterocolitica Not Detected (Not Detect)
[2022-12-19 14:25] LABS: Enteroaggregative E.coli Not Detected (Not Detect)
[2022-12-19 14:26] LABS: Adenovirus F 40/41 Not Detected (Not Detect); Astrovirus Not Detected (Not Detect); Cryptosporidium Not Detected (Not Detect); Cyclospora cayetanensis Not Detected (Not Detect); Entamoeba histolytica Not Detected (Not Detect); Enteropathogenic E.coli Detected (Not Detect); Enterotoxigenic E.coli It/st Not Detected (Not Detect); Giardia lamblia Not Detected (Not Detect); Norovirus GI/GII Not Detected (Not Detect); Rotavirus A Not Detected (Not Detect); Sapovirus Not Detected (Not Detect); Shiga-like toxin-prod E.coli Not Detected (Not Detect); Shigella/Enteroinvasive E.coli Not Detected (Not Detect)
== END 2022-12-19 12:41 | disposition home or self-care (01) ==
PROVIDERS: Emergency Provider Student in an Organized Health Care Education/Training Program; PCP Family Medicine
DX: R19.7 Diarrhea, unspecified (principal)
CPT/HCPCS: 87507; 99281; 99282

== ENCOUNTER 2022-12-24 15:16 | Outpatient (CLI) | payer OTHER, SELFPAY ==
[2022-06-26 14:41] VITALS: BMI 26.9
[2022-12-24] VITALS (9 sets, daily range): BP systolic 120–147; BP diastolic 58–88; PULSE 47–54; RESP 17–20; TEMP 36.1; O2SAT 97–99
--- NOTE | 2022-12-24 15:17 | DI.RAD.S_ITS ---
PROCEDURE: PAIN L/S TRANSFORAMINAL INJECT INDICATIONS: SPONDYLOSIS COMPARISON: None. FINDINGS: Fluoroscopic spot filming was performed to verify placement of spinal needles at the right L3-L4 interlaminar space level(s), as labeled on the films. Appropriate location(s) of the needle tip(s) was confirmed by injection of iodinated contrast. IMPRESSION: Access needle in the right L3-L4 interlaminar space for translaminar epidural steroid injection. Dictated by: Cherelle Barnett MD, PhD on 12/24/2022 at 16:29 Approved by: Cherelle Barnett MD, PhD on 12/24/2022 at 16:29
[2022-12-24] MEDS: MIDAZOLAM 2 MG/2 ML VIAL IV (16:08)
[2022-12-24] MEDS: IOPAMIDOL 15 ML VIAL 3 ML INJ (16:11)
[2022-12-24] MEDS: BETAMETHASONE 30 MG/5 ML MDV 6 MG INJ (16:11)
[2022-12-24] MEDS: DEXAMETHASONE 10 MG/ML VIAL 20 MG INJ (16:11)
[2022-12-24] MEDS: BUPIVACAINE 0.25% (PF) VIAL 2 ML INJ (16:12)
--- NOTE | 2022-12-24 16:22 | P.PCN_ITS ---
Date/Time/Diagnoses Date of procedure: 12/24/22 Time of procedure: 16:22 Pre-procedure diagnosis: 1. FORAMINAL STENOSIS WITH LE SYMPTOMS Post-procedure diagnosis: same Procedure Notes Procedure: 1. FLUOROSCOPICALLY GUIDED CONTRAST CONTROLLED TRANSFORAMINAL EPIDURAL STEROID INJECTION - RIGHT L3/4 TFESI Indications: Theodore is referred by Dr. Solis for treatment of Foraminal Stenosis with right LE Symptoms Physician: Eric Carrington Total Fluoroscopy time (seconds): 8 Total sedation minutes: 13 Complications: none Procedure in detail & Post-procedure care: FINDINGS Foraminal Nerve Root Compression secondary to disc disease and facet hypertrophy DESCRIPTION OF PROCEDURE Following review of allergy and review of potential side effects and complications, including, but not necessarily limited to, infection, allergic reaction, local tissue breakdown, stroke, temporary or permanent nerve injury, paralysis, and possible , the patient indicated that the patient understood and agreed to proceed. An informed consent document was signed by the patient, witnessed by a nurse, and placed in the patient's chart. Additionally, other treatment options including medications, modalities, and physical therapy were reviewed with the patient. After review of previous anaesthesic history and IV conscious sedation the patient was deemed safe to proceed with today?s procedure with IV conscious sedation as ASA class II designation. Safety time-out was performed to confirm patient ID, procedure to be performed and site of procedure. IV sedation was accomplished with a combination of 2mg of Versed was administered by the RN after DO order, titrated to patient comfort during the course of the procedure while the patient remained responsive to all verbal commands In the prone position following sterile prep and drape of the lumbar region, the right L3/4 posterior neuroforamen was identified fluoroscopically. The skin was anesthetized via a 25-gauge 1.5-inch needle with 1% lidocaine solution. At this point, a 25-gauge 3.5-inch spinal needle was atraumatically introduced and advanced under fluoroscopic guidance through the posterior right L3/4 neuroforamen to approximately the anterior aspect of the canal. Depth was confirmed on lateral view. Following negative aspiration, injection of approximately 1.5 cc of Isovue 200 under live fluoroscopy in the AP view confi rmed excellent flow along the nerve root, into the epidural space without vascular or intrathecal uptake observed Radiological data, including multiple fluoroscopic views of the lumbosacral spine, reveal a spinal needle at the right L3/4 posterior neuroforamen. Subsequent views show flow of contrast material flowing superiorly and inferiorly along the nerve root confirming epidural flow. Subsequently, a test dose of 1.5 cc of 1% lidocaine solution was administered and patient was observed for two minutes for signs or symptoms of complications, including abdominal pain, shortness of breath, bilateral upper or lower extremity weakness, nausea and vomiting, prior to steroid injection. At this point, a total of 3cc or 20mg of dexamethasone and 6mg of betamethasone was injected without incident. The patient tolerated the procedure well without signs or symptoms of complications prior to transfer to the recovery area continued monitoring without incident. The patient was then transferred to the recovery area where they were observed for an appropriate time after the injection. The patient reported a VAS score of 7 prior to the procedure and a post-procedure VAS of 0. POST OP INSTRUCTIONS The patient was provided a Pain Log to continue to record their response to the target-specific procedure prior to follow-up visit with their referring phys ician. Additionally, specific post-injection care instructions and a contact number to our office were provided if concerns arise regarding possible complications associated with the procedure are suspected.
== END 2022-12-24 16:40 | disposition home or self-care (01) ==
LOC: RAD 15:16
PROVIDERS: PCP Family Medicine; Referring Provider Physical Medicine & Rehabilitation; Visit Provider Physical Medicine & Rehabilitation
DX: M48.061 Spinal stenosis, lumbar region without neurogenic claudication (principal); M51.16 Intervertebral disc disorders with radiculopathy, lumbar region
CPT/HCPCS: 64483; 99152; J0702; J1100; J2250; J3490

== ENCOUNTER 2023-03-24 15:49 | Emergency (ER) | payer OTHER, SELFPAY ==
[2022-06-26 14:41] VITALS: BMI 26.9
[2023-03-24] VITALS (7 sets, daily range): BP systolic 124–145; BP diastolic 60–65; PULSE 55–71; RESP 17–27; TEMP 36.6; O2SAT 94–96; BMI 26.6
--- NOTE | 2023-03-24 15:59 | DI.RAD.S_ITS ---
PROCEDURE: XR CHEST 1V INDICATIONS: Shortness of breath TECHNIQUE: One view of the chest was acquired. COMPARISON: [facility], CR, CHEST 1 VIEW, 08/12/2014, 11:29. [facility], CT, CT CHEST ABD PEL W CON, 08/19/2018, 10:44. FINDINGS: Surgical changes and devices: None. Lungs and pleura: Bilateral interstitial infiltrates. No pleural effusions or pneumothorax. Mediastinum: Mediastinal contours appear normal. Heart size is mildly increased. Bones and chest wall: Multiple old right rib fractures. No suspicious bony lesions. Overlying soft tissues appear unremarkable. IMPRESSION: Bilateral interstitial infiltrates may be secondary to CHF or bilateral pneumonia. Dictated by: Letty Lucas M.D. on 03/24/2023 at 16:58 Approved by: Letty Lucas M.D. on 03/24/2023 at 16:59
[2023-03-24 16:26] LABS: Add Manual Diff / Slide Review NO; Basophils Absolute Auto 100 /uL (0-100); Basophils Percent Auto 0.5 % (0-2); Eosinophils Absolute Auto 300 /uL (0-450); Eosinophils Percent Auto 1.6 % (2-4); Hematocrit 36.5 % (41-53); Hemoglobin 12.1 g/dL (13.5-17.5); Lymphocytes Absolute Auto 9100 /uL (1100-4500); Lymphocytes Percent Auto 52.1 % (25-40); Mean Corpuscular HGB Conc 33.1 % (30-36); Mean Corpuscular Hemoglobin 31.9 PG (26-34); Mean Corpuscular Volume 96.4 fL (80-100); Monocytes Absolute Auto 2200 /uL (0-900); Monocytes Percent Auto 12.6 % (3-14); Neutrophils Absolute Auto 5800 /uL (1500-7000); Neutrophils Percent Auto 33.2 % (50-75); Platelet Count 240 X10^3/uL (150-400); Red Blood Cell Count 3.79 X10^6/uL (4.5-5.9); Red Cell Distribution Width 19.5 % (11.6-14.8); White Blood Cell Count 17.5 X10^3/uL (4.5-11.0)
--- NOTE | 2023-03-24 16:27 | DI.CT.S_ITS ---
PROCEDURE: CT ANGIO CHEST INDICATIONS: dyspnea, CLL TECHNIQUE: After the administration of intravenous contrast, 2 mm thick sections acquired from the pulmonary apices to the posterior costophrenic angles. 3-dimensional maximum intensity projection (MIP) coronal and sagittal reformats were then acquired through the thorax. For radiation dose reduction, the following was used: automated exposure control, adjustment of mA and/or kV according to patient size. COMPARISON: [facility], CR, XR CHEST 1V, 03/24/2023, 16:03. [facility], CT, CT ABDOMEN PELVIS W CON, 11/23/2022, 12:35. FINDINGS: Image quality: Excellent. Pulmonary arteries: Pulmonary arteries are normal in size, and demonstrate no intraluminal filling defects to suggest central pulmonary embolism. Lungs and pleura: Bilateral subpleural septal thickening. Mild pulmonary fibrosis. Mild emphysema. There are several ground-glass nodules in the left lower lobe. No pleural effusions or pneumothorax. Central and peripheral airways are patent. Mediastinum: Heart size is mildly increased. No pericardial effusion. Severe atherosclerotic calcifications of coronary arteries. Mild right lymphadenopathy measuring 1.9 cm. Thoracic aorta is normal in caliber and enhancement. Esophagus is normal in caliber, without hiatal hernia. Bones and chest wall: No suspicious bony lesions. Old right rib fractures are noted. Osteopenia. Ribs and thoracic spine appear intact throughout. Thyroid gland is normal. No axillary or supraclavicular adenopathy. Abdomen: Spleen is absent. IMPRESSION: 1. No acute pulmonary embolism. 2. Mild cardiomegaly. 3. Bilateral subpleural septal thickening suggesting chronic CHF. A differential diagnosis is chronic interstitial lung disease. There is mild pulmonary fibrosis. 4. A few irregular ground-glass nodules in the left lower lobe, most likely infectious or inflammatory in etiology. Consider a short-term follow-up CT in 3 months. 5. Mild right hilar lymphadenopathy. 6. Severe coronary artery atherosclerosis. 7. Splenectomy. Dictated by: Letty Lucas M.D. on 03/24/2023 at 17:11 Approved by: Letty Lucas M.D. on 03/24/2023 at 17:20
--- NOTE | 2023-03-24 16:28 | ED_ITS ---
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 Patient states that he has been on vacation for the last month and he has noticed that his shortness of breath has begun to impact his ability to do things around his house. He does have a history of coronary artery disease, but denies history of heart failure. He denies leg swelling, orthopnea. Former smoker, last smoked 15 years ago. Related Data Home Medications Medication Instructions Recorded Confirmed cholecalciferol (vitamin D3) 25 25 mcg PO DAILY 05/25/20 03/24/23 mcg (1,000 unit) tablet (Vitamin D3) metoprolol succinate 50 mg 50 mg PO DAILY 05/25/20 03/24/23 tablet,extended release 24 hr rosuvastatin 40 mg tablet 40 mg PO DAILY 01/25/21 03/24/23 ezetimibe 10 mg tablet 10 mg PO DAILY 02/18/22 03/24/23 Previous Rx's Medication Instructions Recorded acetaminophen 325 mg tablet 650 mg PO Q6HR #60 tabs 06/15/22 aspirin 81 mg tablet,delayed 81 mg PO BID #84 tabs 06/15/22 release celecoxib 200 mg capsule (Celebrex) 200 mg PO DAILY #30 caps 02/05/23 furosemide 20 mg tablet 20 mg PO DAILY #14 tabs 03/24/23 Allergies Allergy/AdvReac Type Severity Reaction Status Date / Time oxycodone Allergy Mild itching Verified 02/05/23 07:55 Review of Systems Review of Systems Narrative: CONSTITUTIONAL- Denies: fever, chills, fatigue HEENT- Denies: sore throat, nosebleed, vision changes RESPIRATORY-reports: Shortness of breath Denies: cough, wheezing CARDIAC- Denies: chest pain, edema, orthopnea GI- Denies: abdominal pain, nausea, vomiting, constipation, diarrhea - Denies: frequency, dysuria, hematuria, flank pain MSK- Denies: extremity pain, extremity swelling, joint pain, joint swelling SKIN- Denies: rash, itching, burn, swelling NEUROLOGICAL- Denies: headache, numbness, weakness, dizziness PSYCHIATRIC- Denies: anxiety, depression, suicidal ideation, homicidal ideation Patient History Medical History A-fib Degenerative joint disease of right hip Diarrhea Distal radius fracture, left Facet arthropathy, lumbar Hip fx Lumbar foraminal stenosis Lumbar radiculopathy Surgical History H/O splenectomy H/O wrist surgery History of appendectomy History of hernia surgery History of total right hip arthroplasty Hx of heart artery stent Social History household members: spouse Smoking Status: Former smoker alcohol intake: current Smoking Status: Former smoker alcohol intake frequency: 0-2 drinks per day Alcohol type: wine Substance Use Type: does not use Exam Initial Vital Signs Initial Vital Signs: Vital Signs Temperature 98 F 03/24/23 16:05 Pulse Rate 62 03/24/23 16:05 Respiratory Rate 17 03/24/23 16:05 Blood Pressure 136/63 03/24/23 16:05 Pulse Oximetry 94 03/24/23 16:05 Oxygen Delivery Method Room Air 03/24/23 16:05 Const: Well-nourished, Well-developed, appears stated age Eyes: PERRL, EOMI, conjunctiva normal ENT: Atraumatic, dentition normal, mucous membranes moist Cardiac: regular rate, regular rhythm RESP: unlabored, clear bilaterally, no wheezing GI: Atraumatic, soft, nontender, nondistended, no rebound, no guarding MSK: Atraumatic, full range of motion, pulses equal Skin: Warm, Dry, intact, no rashes Neuro: AO x3, CN II-XII grossly intact, moves all extremities Psych: affect normal, mood normal, not suicidal, not homicidal Course Course Course Narrative: Well-appearing patient presenting for 1 month of shortness of breath. While resting in ED bed patient is oxygen is 98%, he is speaking in complete sentences without difficulty. With history of coronary disease question if patient has early heart failure. We will obtain labs and imaging. Patient does have history of cancer, we will obtain CT angio to assess for pulmonary embolism. Orders Ordered: Discontinued Medications Furosemide (Furosemide 40 Mg/4 Ml Vial) 40 mg IV NOW ONE Stop: 03/24/23 17:34 Last Admin: 03/24/23 17:49 Dose: 40 mg Documented By: JEOVANNY Reevaluation(s) Reevaluation #1: Vital signs stable, patient ambulatory pulse ox 94%. Labs and imaging reviewed. Patient has chronic leukocytosis and anemia that appear to be at baseline from his marginal cell lymphoma. Chest x-ray reveals bilateral interstitial infiltrates that could possibly be CHF or pneumonia. Favor CHF given the chronic nature of patient's complaint. CT angio is pending. Reevaluation #2: CT angio was negative for pulmonary embolism. Patient does have mild cardiomegaly and suggestions of chronic congestive heart failure, however differential diagnosis includes interstitial lung disease. Mild pulmonary fibro sis also seen. Patient does have elevated BNP, he likely does have some component of congestive heart failure, however he will need further evaluation with Cardiology and pulmonology. Patient was informed of all lab and imaging results as well as the possibility of congestive heart failure versus interstitial lung disease. He will be given a small amount of Lasix here and discharged with 20mg daily. 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 Strict ED return precautions discussed at bedside. Patient expressed understanding of the plan and is in agreement at this time. All questions answered at the time of discharge. Vital Signs Vital signs: Vital Signs - 8 hr 03/24/23 16:05 03/24/23 16:13 03/24/23 16:30 Temperature 98 F Pulse Rate 62 60 Respiratory Rate 17 27 H Blood Pressure 136/63 124/60 Pulse Oximetry 94 96 Oxygen Delivery Method Room Air 03/24/23 16:30 03/24/23 17:00 03/24/23 17:01 Temperature Pulse Rate 55 L 55 L Respiratory Rate 24 20 Blood Pressure 145/65 H Pulse Oximetry 94 94 Oxygen Delivery Method 03/24/23 17:01 03/24/23 17:30 03/24/23 17:30 Temperature Pulse Rate 55 L 56 L Respiratory Rate 24 23 Blood Pressure 135/62 Pulse Oximetry 94 95 Oxygen Delivery Method Room Air 03/24/23 18:04 Temperature Pulse Rate 71 Respiratory Rate Blood Pressure Pulse Oximetry 94 Oxygen Delivery Method MDM - SOB/Dyspnea Lab Data 03/24/23 16:19 03/24/23 16:19 Labs: Lab Results 03/24/23 03/24/23 03/24/23 Range/Units 16:19 16:19 16:19 WBC 17.5 H (4.5-11.0) X10^3/uL RBC 3.79 L (4.5-5.9) X10^6/uL Hgb 12.1 L (13.5-17.5) g/dL Hct 36.5 L (41-53) % MCV 96.4 (80-100) fL MCH 31.9 (26-34) PG MCHC 33.1 (30-36) % RDW 19.5 H (11.6-14.8) % Plt Count 240 (150-400) X10^3/uL Neut % (Auto) 33.2 L (50-75) % Lymph % (Auto) 52.1 H (25-40) % [place] % (Auto) 12.6 (3-14) % Eos % (Auto) 1.6 L (2-4) % Baso % (Auto) 0.5 (0-2) % Neut # (Auto) 5800 (7818-8191) /uL Lymph # (Auto) 9100 H (9017-7123) /uL [place] # (Auto) 2200 H (0-900) /uL Eos # (Auto) 300 (0-450) /uL Baso # (Auto) 100 (0-100) /uL PT 12.3 (10.1-12.7) SECONDS INR 1.1 (0.9-1.3) Sodium 135 L (137-145) mmol/L Potassium 3.8 (3.4-5.1) mmol/L Chloride 102 (98-107) mmol/L Carbon Dioxide 27 (22-32) mmol/L BUN 20 (9-20) mg/dL Creatinine 0.85 (0.66-1.25) mg/dL Estimated GFR > 60 (>60) mL/min BUN/Creatinine Ratio 23.5 H (6-22) Glucose 106 (80-110) mg/dL Lactate (0.7-2.1) mmol/L Calcium 9.0 (8.4-10.2) mg/dL Total Bilirubin 0.6 (0.2-1.3) mg/dL AST 50 (17-59) IU/L ALT 32 (<50) IU/L Alkaline Phosphatase 79 (38-126) U/L Troponin I < 0.012 (0.01-0.034) ng/mL NT-Pro-B Natriuret Pep 505 H (<450) pg/mL Total Protein 6.7 (6.3-8.2) g/dL Albumin 3.9 (3.5-5.0) g/dL Globulin 2.8 (1.7-4.1) g/dL Albumin/Globulin Ratio 1.4 (1.0-2.8) 03/24/23 Range/Units 16:19 WBC (4.5-11.0) X10^3/uL RBC (4.5-5.9) X10^6/uL Hgb (13.5-17.5) g/dL Hct (41-53) % MCV (80-100) fL MCH (26-34) PG MCHC (30-36) % RDW (11.6-14.8) % Plt Count (150-400) X10^3/uL Neut % (Auto) (50-75) % Lymph % (Auto) (25-40) % [place] % (Auto) (3-14) % Eos % (Auto) (2-4) % Baso % (Auto) (0-2) % Neut # (Auto) (3242-7239) /uL Lymph # (Auto) (3140-1040) /uL [place] # (Auto) (0-900) /uL Eos # (Auto) (0-450) /uL Baso # (Auto) (0-100) /uL PT (10.1-12.7) SECONDS INR (0.9-1.3) Sodium (137-145) mmol/L Potassium (3.4-5.1) mmol/L Chloride (98-107) mmol/L Carbon Dioxide (22-32) mmol/L BUN (9-20) mg/dL Creatinine (0.66-1.25) mg/dL Estimated GFR (>60) mL/min BUN/Creatinine Ratio (6-22) Glucose (80-110) mg/dL Lactate 1.2 (0.7-2.1) mmol/L Calcium (8.4-10.2) mg/dL Total Bilirubin (0.2-1.3) mg/dL AST (17-59) IU/L ALT (<50) IU/L Alkaline Phosphatase (38-126) U/L Troponin I (0.01-0.034) ng/mL NT-Pro-B Natriuret Pep (<450) pg/mL Total Protein (6.3-8.2) g/dL Albumin (3.5-5.0) g/dL Globulin (1.7-4.1) g/dL Albumin/Globulin Ratio (1.0-2.8) Discharge Plan Departure Patient Disposition: Home Clinical Impression: Congestive heart failure, Shortness of breath, Abnormal chest CT Instructions: DI for Heart Failure Activity Restrictions/Additional Instructions: YOUR LABS AND IMAGING TODAY INDICATE THAT YOU MAY BE IN EARLY STAGES OF CONGESTIVE HEART FAILURE. THIS IS WHEN FLUID BACKS UP FROM THE HEART TO THE LUNGS. TO COUNTERACT THIS WE GAVE YOU AN IV DOSE OF A MEDICATION CALLED FURO SEMIDE, WHICH HELPS YOU TO GET RID OF EXCESS WATER THROUGH THE KIDNEYS. I AM GOING TO BE DISCHARGING YOU ON A LOW DOSE OF THE FUROSEMIDE THEY SHOULD CONTINUE TO TAKE UNTIL YOU SEE YOUR NATIONAL OPELINT ANALYST. THE CT SCAN THAT WE OBTAINED TODAY RAISED THE POSSIBILITY OF UNDERLYING INTERSTITIAL LUNG DISEASE, WHICH IS WHEN YOUR LUNG TISSUE IS NOT STRETCHY IT SHOULD BE. A PRECAUTION I AM REFERRING YOU TO A PLAYGROUND MONITOR. PLEASE CALL FOR A FOLLOW UP APPOINTMENT. Prescriptions: New furosemide 20 mg tablet 20 mg PO DAILY Qty: 14 0RF No Action acetaminophen 325 mg Tablet 650 mg PO Q6HR Qty: 60 0RF aspirin 81 mg Tablet,Delayed Release (Dr/Ec) 81 mg PO BID Qty: 84 0RF metoprolol succinate 50 mg Tablet Extended Release 24 Hr 50 mg PO DAILY cholecalciferol (vitamin D3) [Vitamin D3] 25 mcg (1,000 unit) Tablet 25 mcg PO DAILY rosuvastatin 40 mg Tablet 40 mg PO DAILY ezetimibe 10 mg Tablet 10 mg PO DAILY celecoxib [Celebrex] 200 mg capsule 200 mg PO DAILY Qty: 30 2RF Referrals: Alfred Solis MD [Primary Care Provider] - Gurpreet Perez MD [Physician] - Cindy Jacome MD [Physician] - Stand Alone Forms: Patient Portal/API
[2023-03-24 16:37] LABS: Lactate (Lactic Acid) 1.2 mmol/L (0.7-2.1)
[2023-03-24 16:38] LABS: Alanine Aminotransferase 32 IU/L (<50); Albumin 3.9 g/dL (3.5-5.0); Albumin Globulin Ratio 1.4 (1.0-2.8); Alkaline Phosphatase 79 U/L (38-126); Aspartate Aminotransferase 50 IU/L (17-59); BUN Creatinine Ratio 23.5 (6-22); Bilirubin Total 0.6 mg/dL (0.2-1.3); Blood Urea Nitrogen 20 mg/dL (9-20); Carbon Dioxide 27 mmol/L (22-32); Chloride 102 mmol/L (98-107); Estimated Glomerular Filt Rate > 60 mL/min (>60); Globulin 2.8 g/dL (1.7-4.1); Glucose 106 mg/dL (80-110); HEMOLYSIS < 15 (0-50); Potassium 3.8 mmol/L (3.4-5.1); Sodium 135 mmol/L (137-145); Total Protein 6.7 g/dL (6.3-8.2)
[2023-03-24 16:49] LABS: NT-proBNP (BNP-Adult 18+) 505 pg/mL (<450); Troponin I < 0.012 ng/mL (0.01-0.034)
[2023-03-24 16:55] LABS: INR 1.1 (0.9-1.3); Prothrombin Time 12.3 SECONDS (10.1-12.7)
[2023-03-24] MEDS: FUROSEMIDE 40 MG/4 ML VIAL IV (17:49)
== END 2023-03-24 18:16 | disposition home or self-care (01) ==
PROVIDERS: Emergency Provider Emergency Medicine; PCP Family Medicine
DX: I50.9 Heart failure, unspecified (principal); R06.02 Shortness of breath; R79.89 Other specified abnormal findings of blood chemistry
CPT/HCPCS: 36415; 71045; 71275; 80053; 83605; 83880; 84484; 85025; 85610; 93005; 93010; 96374; 99284; J1940; Q9967

== ENCOUNTER → 2023-03-26 12:42 | Outpatient (CLI) | payer OTHER, SELFPAY ==
[2022-06-26 14:41] VITALS: BMI 26.9
[2023-03-26 15:04] LABS: Hematocrit 39.4 % (41-53); Mean Corpuscular HGB Conc 32.9 % (30-36); Mean Corpuscular Hemoglobin 31.8 PG (26-34); Mean Corpuscular Volume 96.7 fL (80-100); Platelet Count 256 X10^3/uL (150-400); Red Blood Cell Count 4.08 X10^6/uL (4.5-5.9); Red Cell Distribution Width 19.4 % (11.6-14.8); White Blood Cell Count 18.8 X10^3/uL (4.5-11.0)
[2023-03-26 15:08] LABS: Add Manual Diff / Slide Review YES
[2023-03-26 15:19] LABS: Macrocytosis 1+; Neutrophils Absolute Manual 2444 /uL (3000-5900); Target Cells 1+; Total Cells Counted 100
[2023-03-26 15:20] LABS: Anisocytosis 2+
[2023-03-26 15:39] LABS: BUN Creatinine Ratio 26.8 (6-22); Blood Urea Nitrogen 26 mg/dL (9-20); Calcium 9.5 mg/dL (8.4-10.2); Carbon Dioxide 30 mmol/L (22-32); Chloride 98 mmol/L (98-107); Cholesterol 120 mg/dL (140-199); Estimated Glomerular Filt Rate > 60 mL/min (>60); Glucose 91 mg/dL (80-110); HDL Cholesterol 30 mg/dL (40-60); HEMOLYSIS < 15 (0-50); LDL Cholesterol Calculated 73 mg/dL (<100); Potassium 4.5 mmol/L (3.4-5.1); Sodium 136 mmol/L (137-145); Triglycerides 84 mg/dL (35-150)
== END ==
PROVIDERS: PCP Family Medicine; Referring Provider Internal Medicine Cardiovascular Disease; Visit Provider Internal Medicine Cardiovascular Disease
DX: I25.10 Atherosclerotic heart disease of native coronary artery without angina pectoris (principal)
CPT/HCPCS: 36415; 80048; 80061; 85007; 85025

== ENCOUNTER → 2023-03-27 08:19 | Outpatient (CLI) | payer OTHER, SELFPAY ==
[2022-06-26 14:41] VITALS: BMI 26.9
--- NOTE | 2023-03-27 | DI.ECHO.S_ITS ---
[place] [facility]---------+ [facility] +---------+ : : [address] [place] : : : : [id number] : : : : Phone: [phone]+ Echocardiogram Report + + :Name: EMMIE DOYLE Study Date: 03/27/2023 Height: 69 in : :[facility] ReadingLocation: Weight: 175 lb : : Gender: Male BSA: 2.0 m2 : :: 1945 Age: 78 yrs BP: 131/76 mmHg: :Reason For Study: LEFT BUNDLE BRANCH BLOCK : :Ordering Physician: CONCEPCION, : :GABY Performed By: Lexis Ahumada : :Referring: GABY HUGHES : + + Interpretation Summary 1) Normal left ventricular size and thickness with low normal systolic function (EF 50-55%). 2) There is a significant dyssynchronous contraction pattern, consistent with a conduction abnormality. 3) The right ventricle is normal in size and function. 4) There is mild aortic regurgitation. 5 Compared to the Echo done 04/23/2018, no significant change. Procedure: A two-dimensional transthoracic echocardiogram with color flow and Doppler was performed. The study quality was technically adequate. Comparison is made with the echocardiogram of 04/23/2018. The patient had a bundle branch block rhythm during the exam. The patient was in sinus bradycardia with heart rates between 43-50 bpm during the exam. Left Ventricle: The left ventricle is normal in size and wall thickness. The ejection fraction is estimated to be 50-55%. There is a significant dyssynchronous contraction pattern due to the paced rhythm. Right Ventricle: The right ventricle is normal in size and function. Atria: The left atrial size is normal. Right atrial size is normal. There is no Doppler evidence for an interatrial shunt. Mitral Valve: The mitral valve is normal in structure and function. There is mild mitral regurgitation. Aortic Valve: The aortic valve is trileaflet. The aortic valve opens well. There is no aortic valve stenosis. There is mild aortic regurgitation. Tricuspid Valve: The tricuspid valve is normal in structure and function. There is mild tricuspid regurgitation. The right ventricular systolic pressure is estimated to be at least 26 mmHg based on an estimated right atrial pressure of 3 mm Hg. Pulmonic Valve: The pulmonic valve leaflets are thin and pliable; valve motion is normal. There is mild pulmonic regurgitation. Great Vessels: The aortic root is normal size. The dimensions of the ascending aorta are normal. The IVC is of normal diameter and collapses greater than 50% with a sniff. This suggests a low right atrial pressure of 3 mm Hg. Pericardium/ Pleura There is no pericardial effusion. There is no pleural effusion. MMode/2D Measurements & Calculations LVIDd: 5.4 cm LVOT diam: 2.2 cm LVIDs: 4.0 cm Ao root diam: 3.5 cm FS: 25.5 % asc Aorta Diam: 3.6 cm EPSS: 0.79 cm Ao Arch Diam (Prox Trans): 2.4 cm IVSd: 1.0 cm LVPWd: 0.84 cm LV nichols. diameter/BSA (cm/m^2): 2.8 LV sys. diameter/BSA (cm/m^2): 2.1 LA A2 area: 20.6 cm2 RA long axis: 5.5 cm LA A4 area: 16.5 cm2 RA area: 11.6 cm2 LA length (vol): 5.3 cm RA vol: 20.8 ml LA vol: 54.7 ml RA : 10.7 ml/m2 LA vol index: 28.0 ml/m2 IVC diam: 0.78 cm RVD1 (basal): 3.2 cm RVD2 (mid): 2.9 cm TAPSE: 2.0 cm Doppler Measurements & Calculations Ao V2 max: 155.2 cm/sec LVOT Max Ramo: 109.0 cm/sec Ao V2 mean: 100.2 cm/sec LV V1 max P.8 mmHg Ao max P.6 mmHg LV V1 VTI: 27.7 cm Ao mean P.5 mmHg GINNY(I,D): 2.7 cm2 Ao V2 VTI: 37.8 cm GINNY(V,D): 2.6 cm2 sev ratio: 0.73 GINNY indexed to BSA (cm^2/m^2): 1.4 MV E max ramo: 65.8 cm/sec TR max ramo: 239.7 cm/sec MV A max ramo: 89.6 cm/sec TR max P.0 mmHg MV E/A: 0.73 PA V2 max: 91.4 cm/sec Med Peak E' Ramo: 4.8 cm/sec PA V2 mean: 61.2 cm/sec E/E' med: 13.8 PA mean P.7 mmHg Lat Peak E' Ramo: 6.7 cm/sec PA pr(Accel): 44.7 mmHg E/E' lat: 9.7 E/e' average: 11.8 MV dec time: 0.28 sec SV(LVOT): 101.4 ml Reading Physician:11:49 AM
== END ==
PROVIDERS: PCP Family Medicine; Referring Provider Internal Medicine Cardiovascular Disease; Visit Provider Internal Medicine Cardiovascular Disease
DX: I08.3 Combined rheumatic disorders of mitral, aortic and tricuspid valves (principal); I44.7 Left bundle-branch block, unspecified
CPT/HCPCS: 93306

== ENCOUNTER → 2023-04-26 11:31 | Outpatient (CLI) | payer OTHER, SELFPAY ==
[2022-06-26 14:41] VITALS: BMI 26.9
[2023-04-26 12:00] LABS: Add Manual Diff / Slide Review NO; Basophils Absolute Auto 0 /uL (0-100); Basophils Percent Auto 0.2 % (0-2); Eosinophils Absolute Auto 200 /uL (0-450); Eosinophils Percent Auto 1.4 % (2-4); Hematocrit 38.1 % (41-53); Hemoglobin 12.6 g/dL (13.5-17.5); Lymphocytes Absolute Auto 8100 /uL (1100-4500); Lymphocytes Percent Auto 54.9 % (25-40); Mean Corpuscular Hemoglobin 31.8 PG (26-34); Mean Corpuscular Volume 96.3 fL (80-100); Monocytes Absolute Auto 1800 /uL (0-900); Monocytes Percent Auto 12.2 % (3-14); Neutrophils Absolute Auto 4600 /uL (1500-7000); Neutrophils Percent Auto 31.3 % (50-75); Platelet Count 235 X10^3/uL (150-400); Red Blood Cell Count 3.96 X10^6/uL (4.5-5.9); Red Cell Distribution Width 18.7 % (11.6-14.8); White Blood Cell Count 14.8 X10^3/uL (4.5-11.0)
[2023-04-26 12:12] LABS: BUN Creatinine Ratio 25.6 (6-22); Blood Urea Nitrogen 23 mg/dL (9-20); Calcium 9.1 mg/dL (8.4-10.2); Carbon Dioxide 31 mmol/L (22-32); Chloride 100 mmol/L (98-107); Estimated Glomerular Filt Rate > 60 mL/min (>60); Glucose 102 mg/dL (80-110); HEMOLYSIS < 15 (0-50); Sodium 134 mmol/L (137-145)
== END ==
PROVIDERS: PCP Family Medicine; Referring Provider Internal Medicine Cardiovascular Disease; Visit Provider Internal Medicine Cardiovascular Disease
DX: I25.10 Atherosclerotic heart disease of native coronary artery without angina pectoris (principal); Z01.812 Encounter for preprocedural laboratory examination
CPT/HCPCS: 36415; 80048; 85025

== ENCOUNTER → 2023-07-07 10:12 | Outpatient (CLI) | payer OTHER, SELFPAY ==
[2022-06-26 14:41] VITALS: BMI 26.9
--- NOTE | 2023-07-07 | DI.CT.S_ITS ---
PROCEDURE: CT CHEST HIGH RESOLUTION INDICATIONS: Interstitial pulmonary disease, unspecified TECHNIQUE: Noncontrast 1.0 and 5.0 mm thick contiguous axial sections from the pulmonary apex to the posterior costophrenic angles, with 7 mm thick coronal and sagittal MIP reformats. 1 mm thick dynamic expiratory images acquired through the upper, mid, and lower lungs. 1.0 mm thick axial sections acquired from the teri to the posterior costophrenic angles in the prone end-inspiration position. For radiation dose reduction, the following was used: automated exposure control, adjustment of mA and/or kV according to patient size. COMPARISON: Located Within [facility], CT, CT ANGIO CHEST, 03/24/2023, 17:01. FINDINGS: Image quality: Excellent. Lungs: Lower lobe predominant, peripheral reticulation with subpleural involvement and bronchiectasis. Left lower lobe calcified granuloma. Resolved left lower lobe and left upper lobe nodules. Pleura: No pleural effusions or pneumothorax. Mediastinum: Heart size is enlarged. No pericardial effusion. Dilated main pulmonary artery. Esophagus is normal in caliber. Three-vessel coronary calcifications. Bones and chest wall: No suspicious bony lesions. No vertebral body compression fractures. Abdomen: Visualized upper abdominal solid organs and bowel loops appear normal. 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 Resolved nodules seen on recent comparison CT. Pulmonary hypertension. Dictated by: Curt Chatman M.D. on 07/07/2023 at 12:28 Approved by: Curt Chatman M.D. on 07/07/2023 at 12:35
== END ==
PROVIDERS: PCP Family Medicine; Referring Provider Internal Medicine Critical Care Medicine; Visit Provider Internal Medicine Critical Care Medicine
DX: J84.9 Interstitial pulmonary disease, unspecified (principal); I27.20 Pulmonary hypertension, unspecified
CPT/HCPCS: 71250

== ENCOUNTER → 2023-11-26 11:46 | Outpatient (CLI) | payer OTHER, SELFPAY ==
[2022-06-26 14:41] VITALS: BMI 26.9
[2023-11-26 13:04] LABS: Hematocrit 39.2 % (41-53); Hemoglobin 13.1 g/dL (13.5-17.5); Mean Corpuscular HGB Conc 33.3 % (30-36); Mean Corpuscular Hemoglobin 33.9 PG (26-34); Mean Corpuscular Volume 101.7 fL (80-100); Platelet Count 235 X10^3/uL (150-400); Red Blood Cell Count 3.85 X10^6/uL (4.5-5.9); Red Cell Distribution Width 18.1 % (11.6-14.8); White Blood Cell Count 13.9 X10^3/uL (4.5-11.0)
[2023-11-26 13:10] LABS: Add Manual Diff / Slide Review YES
[2023-11-26 13:28] LABS: BUN Creatinine Ratio 32.1 (6-22); Blood Urea Nitrogen 26 mg/dL (9-20); Calcium 9.8 mg/dL (8.4-10.2); Carbon Dioxide 30 mmol/L (22-32); Chloride 104 mmol/L (98-107); Cholesterol 177 mg/dL (140-199); Estimated Glomerular Filt Rate > 60 mL/min (>60); Glucose 101 mg/dL (80-110); HDL Cholesterol 45 mg/dL (40-60); HEMOLYSIS < 15 (0-50); LDL Cholesterol Calculated 119 mg/dL (<100); Sodium 138 mmol/L (137-145); Triglycerides 65 mg/dL (35-150)
[2023-11-26 14:01] LABS: Neutrophils Absolute Manual 3197 /uL (3000-5900); Nucleated Red Blood Cells 2 #/Diff; Total Cells Counted 100
[2023-11-26 14:04] LABS: Anisocytosis 1+; Target Cells 1+
[2023-11-26 14:06] LABS: Poikilocytosis 1+
== END ==
PROVIDERS: PCP Family Medicine; Referring Provider Internal Medicine Cardiovascular Disease; Visit Provider Internal Medicine Cardiovascular Disease
DX: I25.10 Atherosclerotic heart disease of native coronary artery without angina pectoris (principal)
CPT/HCPCS: 36415; 80048; 80061; 85007; 85025

== ENCOUNTER → 2024-01-15 08:07 | Outpatient (CLI) | payer OTHER, SELFPAY ==
[2022-06-26 14:41] VITALS: BMI 26.9
[2024-01-15 09:05] LABS: Hematocrit 40.5 % (41-53); Hemoglobin 13.5 g/dL (13.5-17.5); Mean Corpuscular HGB Conc 33.4 % (30-36); Mean Corpuscular Hemoglobin 33.5 PG (26-34); Mean Corpuscular Volume 100.1 fL (80-100); Platelet Count 247 X10^3/uL (150-400); Red Blood Cell Count 4.05 X10^6/uL (4.5-5.9); Red Cell Distribution Width 17.3 % (11.6-14.8); White Blood Cell Count 15.1 X10^3/uL (4.5-11.0)
[2024-01-15 09:09] LABS: Add Manual Diff / Slide Review YES
[2024-01-15 09:18] LABS: Neutrophils Absolute Manual 2718 /uL (3000-5900); Total Cells Counted 100
[2024-01-15 09:21] LABS: Anisocytosis 1+; Target Cells 1+
[2024-01-15 09:26] LABS: BUN Creatinine Ratio 21.4 (6-22); Blood Urea Nitrogen 18 mg/dL (9-20); Calcium 9.2 mg/dL (8.4-10.2); Carbon Dioxide 30 mmol/L (22-32); Chloride 106 mmol/L (98-107); Cholesterol 123 mg/dL (140-199); Estimated Glomerular Filt Rate > 60 mL/min (>60); Glucose 100 mg/dL (80-110); HDL Cholesterol 51 mg/dL (40-60); HEMOLYSIS < 15 (0-50); LDL Cholesterol Calculated 59 mg/dL (<100); Potassium 4.8 mmol/L (3.4-5.1); Sodium 138 mmol/L (137-145); Triglycerides 63 mg/dL (35-150)
== END ==
PROVIDERS: PCP Family Medicine; Referring Provider Internal Medicine Cardiovascular Disease; Visit Provider Internal Medicine Cardiovascular Disease
DX: I25.10 Atherosclerotic heart disease of native coronary artery without angina pectoris (principal)
CPT/HCPCS: 36415; 80048; 80061; 85007; 85025

== ENCOUNTER 2024-03-20 10:04 | Emergency (ER) | payer OTHER, SELFPAY ==
[2022-06-26 14:41] VITALS: BMI 26.9
[2024-03-20] VITALS (8 sets, daily range): BP systolic 147–148; BP diastolic 64–67; PULSE 40–53; RESP 18–25; TEMP 36.7; O2SAT 96–99; BMI 26.6
--- NOTE | 2024-03-20 10:18 | DI.CT.S_ITS ---
PROCEDURE: CT ANGIO HEAD AND NECK INDICATIONS: Right upper lip numbness TECHNIQUE: After the administration of intravenous contrast, 1 mm thick sections acquired from the aortic arch through the [place] of [place]. 3-dimensional zagajjh-ftvvkbddy-iozcutlulq (MIP) and/or volume rendering reformats were acquired of the central intracranial vasculature and neck separately. For radiation dose reduction, the following was used: automated exposure control, adjustment of mA and/or kV according to patient size. COMPARISON: Same-day CT head noncontrast 03/20/2024. FINDINGS: Image quality: Diagnostic. BRAIN: CSF spaces: Ventricles are normal in size and shape. Basal cisterns are patent. No extra-axial fluid collections. Brain: No significant abnormality of the brain can be seen. Skull and face: Calvarium and facial bones appear intact, without suspicious lesions. Orbits appear normal. Sinuses: Sinuses and mastoids are clear. HEAD CT ANGIOGRAPHY: Anterior circulation: Intracranial internal carotid arteries are normal in size and flow. The flow within the paired anterior cerebral arteries is normal and symmetric. The flow within the middle cerebral arteries is normal and symmetric. The anterior communicating artery is seen. No aneurysms are seen. Posterior circulation: Visualized portions of the vertebral arteries demonstrate normal caliber, and join to form a normal appearing basilar artery. Flow within the posterior cerebral arteries is normal and symmetric. No aneurysms are seen. NECK CT ANGIOGRAPHY: Carotid system: The great vessels demonstrate a conventional anatomy as they arise from the aortic arch. The origins of the common carotid arteries appear patent. The common carotid arteries demonstrate normal caliber and courses. The bifurcation regions are both widely patent. The internal carotid arteries demonstrate normal calibers and courses. Posterior circulation: The origins of the vertebral arteries both appear widely patent. The more superior extracranial portions of both vertebral arteries also demonstrate normal courses and calibers. They join to form a normal appearing basilar artery. Soft tissues: Visualized neck soft tissues demonstrate no suspicious abnormalities. Bones: No suspicious bony lesions. There is straightening of the normal cervical lordosis. Trace anterolisthesis of C4 on C5. Multilevel degenerative changes, worse at C5-C6. IMPRESSION: No significant intracranial arterial abnormality is seen. No significant abnormality is seen within the arteries of the neck. Any quantitative measurements of stenosis were performed using NASCET criteria. Approved by: Angelica Arrington M.D.,Ph.D. on 03/20/2024 at 11:33
--- NOTE | 2024-03-20 10:18 | EKG_ITS ---
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
--- NOTE | 2024-03-20 10:18 | DI.CT.S_ITS ---
PROCEDURE: CT HEAD/BRAIN WO CON INDICATIONS: Right upper lip numbness TECHNIQUE: Noncontrast 4.5 mm thick angled axial sections acquired from the foramen magnum to the vertex, with coronal and sagittal reformats. For radiation dose reduction, the following was used: automated exposure control, adjustment of mA and/or kV according to patient size. COMPARISON: None. FINDINGS: Image quality: Diagnostic. CSF spaces: Basal cisterns are patent. No extra-axial fluid collections. The ventricles are symmetric in size and shape. Brain: No intracranial bleeds or masses. There is cerebral volume loss for age, with resultant ventricular and sulcal prominence. There are periventricular and deep white matter chronic small vessel ischemic changes. There is intracranial internal carotid artery atherosclerosis. Skull and face: Calvarium and visualized facial bones appear intact, without suspicious lesions. Sinuses: Visualized sinuses and mastoids are clear. IMPRESSION: No acute intracranial pathology. Approved by: Angelica Arrington M.D.,Ph.D. on 03/20/2024 at 11:34
--- NOTE | 2024-03-20 10:20 | ED_ITS ---
HPI - General Adult General Chief complaint: Neuro Symptoms/Deficit Stated complaint: dropping lip, numbness Time Seen by Provider: 03/20/24 10:13 History of Present Illness HPI narrative: Patient 78-year-old male with past medical history of hypertension comes into the ED from home for evaluation of swelling and numbness his right upper lip. States that he noticed this this morning. He states that he went to sleep at around 10:30 a.m. p.m. yesterday woke up and noted numbness to his right lip. He said this has since resolved. States that he woke up at around 7:00 a.m. this morning. Did not have any complaints of headache visual disturbances chest pain shortness breath fever chills nausea vomiting abdominal pain or any other GI/ symptoms. No trauma no falls not on any blood thinners. NIH is 0. Related Data Home Medications Medication Instructions Recorded Confirmed cholecalciferol (vitamin D3) 25 25 mcg PO DAILY 05/25/20 03/24/23 mcg (1,000 unit) tablet (Vitamin D3) metoprolol succinate 50 mg 50 mg PO DAILY 05/25/20 03/24/23 tablet,extended release 24 hr rosuvastatin 40 mg tablet 40 mg PO DAILY 01/25/21 03/24/23 ezetimibe 10 mg tablet 10 mg PO DAILY 02/18/22 03/24/23 Previous Rx's Medication Instructions Recorded acetaminophen 325 mg tablet 650 mg (2 x 325 mg) PO Q6HR #60 06/15/22 tabs aspirin 81 mg tablet,delayed 81 mg PO BID #84 tabs 06/15/22 release furosemide 20 mg tablet 20 mg PO DAILY #14 tabs 03/24/23 celecoxib 200 mg capsule (Celebrex) 200 mg PO DAILY #90 caps 12/16/23 Allergies Allergy/AdvReac Type Severity Reaction Status Date / Time oxycodone Allergy Mild itching Verified 02/05/23 07:55 Review of Systems Review of Systems Narrative: HEENT: Denies headache, eye drainage, eye irritation, head trauma, sore throat, voice change Cardiovascular: Denies any chest pain, palpitations, shortness of breath, tachycardia Respiratory: Denies any shortness of breath, cough, wheeze, stridor GI/: Denies any abdominal pain, nausea, vomiting, diarrhea, bright red blood per rectum, melanotic stools, urinary frequency, urinary retention, dysuria, hematuria MSK: Denies any joint pain, muscle pains, swelling Skin: Denies any rashes, lesions, discoloration, swelling to the right upper lip Neuro: Denies any headache, lightheadedness, dizziness, fainting, weakness, numbness tingling to the right upper lip Psych: Denies SI/HI Patient History Medical History A-fib Degenerative joint disease of right hip Diarrhea Distal radius fracture, left Facet arthropathy, lumbar Hip fx Lumbar foraminal stenosis Lumbar radiculopathy Surgical History H/O splenectomy H/O wrist surgery History of appendectomy History of hernia surgery History of total right hip arthroplasty Hx of heart artery stent Social History household members: spouse Smoking Status: Former smoker alcohol intake: current Smoking Status: Former smoker alcohol intake frequency: 0-2 drinks per day Alcohol type: wine Substance Use Type: does not use Exam Narrative Exam Narrative: General: Cooperative, comfortable, well-developed, not in acute distress HEENT: Normocephalic, atraumatic, PERRLA, normal sclera, eyelids normal, right upper lip swelling noted, but posterior oropharynx clear without any signs of obstruction speaking full sentences protecting airway Neck: Active full range of motion, atraumatic Chest: Normal to inspection, negative crepitus, no overlying erythema ecchymosis Respiratory: Normal respiratory effort, not in acute respiratory distress, clear to auscultation bilaterally negative cough, wheeze, tachypnea, rhonchi, rales Cardiology: Regular rate rhythm negative gallop, murmur, rubs GI/: Normal to inspection, soft, nonrigid, no tenderness to palpation, exam deferred MSK: Full range of active range of motion of all 4 extremities, atraumatic Skin: No rashes lesions noted Neuro: Alert awake oriented x3, moves all 4 extremities spontaneously, cranial nerves intact, able to answer all questions appropriately follows commands ,appropriately no focal deficits noted NIH of 0 Psych: Cooperative, negative suicidal or homicidal ideations Initial Vital Signs Initial Vital Signs: Vital Signs Pulse Rate 53 L 03/20/24 10:09 Blood Pressure 148/67 H 03/20/24 10:09 Pulse Oximetry 97 03/20/24 10:09 Course Orders Ordered: ED Orders 03/20/24 10:15 Complete Blood Count AUTO DIFF Stat Comprehensive Metabolic Panel Stat Ethanol (ETOH) Stat PTT Partial Thromboplastin José Stat Prothrombin Time INR Stat Troponin & CK Cardiac Panel Stat 03/20/24 10:18 CT angio head and neck Stat CT head/brain wo con Stat EKG-12 Lead Stat 03/20/24 11:00 COVID19 -Nasal RAPID Stat Discontinued Medications Diphenhydramine HCl (Diphenhydramine 50 Mg/Ml Vial) 25 mg IV NOW ONE Stop: 03/20/24 10:19 Last Admin: 03/20/24 10:54 Dose: 25 mg Documented By: MIKE Vital Signs Vital signs: Vital Signs - 8 hr 03/20/24 10:09 03/20/24 10:09 03/20/24 10:20 Temperature 98.0 F Pulse Rate 53 L 49 L Respiratory Rate 18 Blood Pressure 148/67 H 148/67 H Pulse Oximetry 97 99 Oxygen Delivery Method Room Air 03/20/24 10:30 03/20/24 11:00 03/20/24 11:30 Temperature Pulse Rate 47 L 42 L 44 L Respiratory Rate 20 23 21 Blood Pressure Pulse Oximetry 96 97 98 Oxygen Delivery Method 03/20/24 11:46 03/20/24 11:46 Temperature Pulse Rate 43 L Respiratory Rate 25 H Blood Pressure 147/67 H Pulse Oximetry 98 Oxygen Delivery Method Medical Decision Making Differential Diagnosis Differential Diagnosis: Allergic reaction, CVA, electrolyte abnormality, ACS, pneumonia Condition is:: Resolved Medical Records Medical records reviewed: Yes I reviewed the patient's medical records. Lab Data Lab results reviewed: Yes I reviewed the patient's lab results. 03/20/24 10:15 03/20/24 10:15 Labs: Lab Results 03/20/24 03/20/24 Range/Units 10:15 10:50 WBC 15.7 H (4.5-11.0) X10^3/uL RBC 3.77 L (4.5-5.9) X10^6/uL Hgb 12.9 L (13.5-17.5) g/dL Hct 38.5 L (41-53) % MCV 102.0 H (80-100) fL MCH 34.2 H (26-34) PG MCHC 33.5 (30-36) % RDW 16.7 H (11.6-14.8) % Plt Count 243 (150-400) X10^3/uL Neut % (Auto) Not Reportable Lymph % (Auto) Not Reportable [place] % (Auto) Not Reportable Eos % (Auto) Not Reportable Baso % (Auto) Not Reportable Lymph # (Auto) Not Reportable [place] # (Auto) Not Reportable Baso # (Auto) Not Reportable Total Counted 100 Seg Neutrophils % 9.0 L (38-70) % Lymphocytes % (Manual) 70.0 H (25-45) % Atypical Lymphs % 8.0 H ( - 0) % Monocytes % (Manual) 8.0 (2-11) % Eosinophils % (Manual) 5.0 H (2-4) % Neutrophils # (Manual) 1413 L (3167-9570) /uL RBC Morphology Not Reportable Anisocytosis 2+ H Target Cells 1+ H PT 11.1 (9.4-12.5) SECONDS INR 1.0 (0.9-1.3) APTT 35 (25.1-36.5) SECONDS Sodium 136 L (137-145) mmol/L Potassium 4.6 (3.4-5.1) mmol/L Chloride 102 (98-107) mmol/L Carbon Dioxide 25 (22-32) mmol/L BUN 24 H (9-20) mg/dL Creatinine 0.84 (0.66-1.25) mg/dL Estimated GFR > 60 (>60) mL/min BUN/Creatinine Ratio 28.6 H (6-22) Glucose 102 (80-110) mg/dL Calcium 9.2 (8.4-10.2) mg/dL Total Bilirubin 0.7 (0.2-1.3) mg/dL AST 36 (17-59) IU/L ALT 19 (<50) IU/L Alkaline Phosphatase 83 (38-126) U/L Total Creatine Kinase 57 (55-170) U/L Troponin I < 0.012 (0.01-0.034) ng/mL Total Protein 7.3 (6.3-8.2) g/dL Albumin 4.3 (3.5-5.0) g/dL Globulin 3.0 (1.7-4.1) g/dL Albumin/Globulin Ratio 1.4 (1.0-2.8) Ethyl Alcohol < 10 ( - 10) mg/dL SARS-CoV-2 (PCR) Negative (Negative) Point of Care Testing Glucose POC 106 Point of care testing: Point of Care Testing Glucose POC 106 ECG Data Attestation: I personally reviewed and interpreted this ECG as follows: Interpretation: EKG interpreted ED physician sinus bradycardia 48 beats per minute left bundle branch block noted, QTC [address] changes no STEMI, similar to previous performed on March 26, 2018 MDM Narrative Medical decision making narrative: Patient is a 78-year-old male with past medical history of bradycardia left bundle branch block, hyperlipidemia presents to the ED for evaluation of numbness swelling to the right upper lip. States that he woke up and noticed numbness and tingling to his right upper lip. States that he went to sleep at around 10:00 p.m. yesterday feeling fine. Physical exam were consistent with possible bug bite/allergic reaction given localized edema of the right upper lip without any posterior oropharynx involvement. Patient did have CT head and CT head and neck which did not show any acute findings. Lab work was unremarkable for any ACS electrolyte abnormality. Patient did have improved/complete resolution of swelling to the upper lip after administration of Benadryl. Strict return precautions were given safe for discharge home with outpatient follow-up Discharge Plan Departure Patient Disposition: Home Clinical Impression: Lip swelling Activity Restrictions/Additional Instructions: Please read the discharge instructions sheet carefully and bring all papers to all doctor follow-up visits, as it may contain information that your doctor may want to see. Disease processes change and evolve, if your symptoms worsen or if you develop any new symptoms that are concerning to you please return for evaluation. Your evaluation today does not show any evidence of any life- threatening/serious illnesses requiring admission to the hospital or surgery. Please follow-up with your doctor for re-evaluation in approximately 1 day. Seek immediate medical attention for any worrisome symptoms. Prescriptions: No Action celecoxib [Celebrex] 200 mg capsule 200 mg PO DAILY Qty: 90 2RF Rx Instructions: DON'T TAKE ANY OTHER NSAIDS WITH THIS MEDICATION acetaminophen 325 mg Tablet 650 mg PO Q6HR Qty: 60 0RF aspirin 81 mg Tablet,Delayed Release (Dr/Ec) 81 mg PO BID Qty: 84 0RF metoprolol succinate 50 mg Tablet Extended Release 24 Hr 50 mg PO DAILY cholecalciferol (vitamin D3) [Vitamin D3] 25 mcg (1,000 unit) Tablet 25 mcg PO DAILY rosuvastatin 40 mg Tablet 40 mg PO DAILY ezetimibe 10 mg Tablet 10 mg PO DAILY furosemide 20 mg tablet 20 mg PO DAILY Qty: 14 0RF Referrals: Alfred Solis MD [Primary Care Provider] - Stand Alone Forms: Patient Portal/API
[2024-03-20 10:30] LABS: Hematocrit 38.5 % (41-53); Hemoglobin 12.9 g/dL (13.5-17.5); Mean Corpuscular HGB Conc 33.5 % (30-36); Mean Corpuscular Hemoglobin 34.2 PG (26-34); Platelet Count 243 X10^3/uL (150-400); Red Blood Cell Count 3.77 X10^6/uL (4.5-5.9); Red Cell Distribution Width 16.7 % (11.6-14.8); White Blood Cell Count 15.7 X10^3/uL (4.5-11.0)
[2024-03-20 10:32] LABS: Add Manual Diff / Slide Review YES
[2024-03-20 10:33] LABS: Prothrombin Time 11.1 SECONDS (9.4-12.5)
[2024-03-20 10:35] LABS: PTT Partial Thromboplastin Tim 35 SECONDS (25.1-36.5)
[2024-03-20 10:37] LABS: Alanine Aminotransferase 19 IU/L (<50); Albumin 4.3 g/dL (3.5-5.0); Albumin Globulin Ratio 1.4 (1.0-2.8); Alkaline Phosphatase 83 U/L (38-126); Aspartate Aminotransferase 36 IU/L (17-59); BUN Creatinine Ratio 28.6 (6-22); Bilirubin Total 0.7 mg/dL (0.2-1.3); Blood Urea Nitrogen 24 mg/dL (9-20); Calcium 9.2 mg/dL (8.4-10.2); Carbon Dioxide 25 mmol/L (22-32); Chloride 102 mmol/L (98-107); Creatine Kinase 57 U/L (55-170); Estimated Glomerular Filt Rate > 60 mL/min (>60); Ethanol (ETOH) < 10 mg/dL; Glucose 102 mg/dL (80-110); HEMOLYSIS < 15 (0-50); Potassium 4.6 mmol/L (3.4-5.1); Sodium 136 mmol/L (137-145); Total Protein 7.3 g/dL (6.3-8.2)
[2024-03-20 10:44] LABS: Anisocytosis 2+; Neutrophils Absolute Manual 1413 /uL (3000-5900); Target Cells 1+; Total Cells Counted 100
[2024-03-20 10:48] LABS: Troponin I < 0.012 ng/mL (0.01-0.034)
[2024-03-20] MEDS: diphenhydrAMINE 50 MG/ML VIAL 25 MG IV (10:54)
[2024-03-20 11:13] LABS: COVID19 -Nasal RAPID Negative (Negative)
== END 2024-03-20 12:23 | disposition home or self-care (01) ==
PROVIDERS: Emergency Provider Student in an Organized Health Care Education/Training Program; PCP Family Medicine
DX: R22.0 Localized swelling, mass and lump, head (principal); R00.1 Bradycardia, unspecified; Z11.52 Encounter for screening for COVID-19
CPT/HCPCS: 36415; 70450; 70496; 70498; 80053; 80320; 82550; 82962; 84484; 85007; 85025; 85610; 85730; 87635; 93005; 96374; 99284; J1200; Q9967

== ENCOUNTER → 2024-06-21 11:26 | Outpatient (CLI) | payer OTHER, SELFPAY ==
[2022-06-26 14:41] VITALS: BMI 26.9
--- NOTE | 2024-06-21 11:29 | DI.RAD.S_ITS ---
PROCEDURE: XR KNEE LT 3V INDICATIONS: left knee pain TECHNIQUE: 3 views of the knee were acquired. COMPARISON: None. FINDINGS: Bones: No fractures or dislocations. Cnqy-sl-mwirighy tricompartmental osteoarthritis is seen with joint space narrowing, subchondral sclerosis and small marginal osteophyte formation more notably in medial femoral tibial compartment. No suspicious bony lesions. Soft tissues: No joint effusion. No suspicious soft tissue calcifications. IMPRESSION: Hpwy-ch-uwwpixds tricompartmental osteoarthritis. No acute left knee fracture or dislocation. No significant joint effusion. Dictated by: Tyrell Duckworth M.D. on 06/21/2024 at 12:15 Approved by: Tyrell Duckworth M.D. on 06/21/2024 at 12:16
== END ==
PROVIDERS: PCP Family Medicine; Referring Provider Physical Medicine & Rehabilitation; Visit Provider Physical Medicine & Rehabilitation
DX: M17.12 Unilateral primary osteoarthritis, left knee (principal); M25.562 Pain in left knee
CPT/HCPCS: 73562

== ENCOUNTER → 2024-11-24 09:18 | Outpatient (CLI) | payer OTHER, SELFPAY ==
[2022-06-26 14:41] VITALS: BMI 26.9
[2024-11-24 10:02] LABS: Add Manual Diff / Slide Review NO; Basophils Absolute Auto 0 /uL (0-100); Basophils Percent Auto 0.2 % (0-2); Eosinophils Absolute Auto 200 /uL (0-450); Eosinophils Percent Auto 1.7 % (2-4); Hematocrit 40.6 % (41-53); Hemoglobin 13.7 g/dL (13.5-17.5); Lymphocytes Absolute Auto 6000 /uL (1100-4500); Lymphocytes Percent Auto 57.3 % (25-40); Mean Corpuscular HGB Conc 33.8 % (30-36); Mean Corpuscular Hemoglobin 34.4 PG (26-34); Mean Corpuscular Volume 101.8 fL (80-100); Monocytes Absolute Auto 1400 /uL (0-900); Monocytes Percent Auto 12.9 % (3-14); Neutrophils Absolute Auto 2900 /uL (1500-7000); Neutrophils Percent Auto 27.9 % (50-75); Platelet Count 250 X10^3/uL (150-400); Red Blood Cell Count 3.99 X10^6/uL (4.5-5.9); Red Cell Distribution Width 16.1 % (11.6-14.8); White Blood Cell Count 10.5 X10^3/uL (4.5-11.0)
[2024-11-24 10:18] LABS: Alanine Aminotransferase 20 IU/L (<50); Albumin 4.1 g/dL (3.5-5.0); Albumin Globulin Ratio 1.5 (1.0-2.8); Alkaline Phosphatase 87 U/L (38-126); Aspartate Aminotransferase 37 IU/L (17-59); BUN Creatinine Ratio 24.7 (6-22); Bilirubin Total 0.7 mg/dL (0.2-1.3); Blood Urea Nitrogen 21 mg/dL (9-20); Calcium 9.1 mg/dL (8.4-10.2); Carbon Dioxide 28 mmol/L (22-32); Chloride 100 mmol/L (98-107); Estimated Glomerular Filt Rate > 60 mL/min (>60); Globulin 2.7 g/dL (1.7-4.1); Glucose 112 mg/dL (70-99); HEMOLYSIS < 15 (0-50); Lactate Dehydrogenase 193 U/L (120-246); Potassium 4.9 mmol/L (3.4-5.1); Sodium 134 mmol/L (137-145); Total Protein 6.8 g/dL (6.3-8.2)
== END ==
PROVIDERS: Family Provider Family Medicine; PCP Family Medicine; Referring Provider Internal Medicine Hematology & Oncology; Visit Provider Internal Medicine Hematology & Oncology
DX: C83.07 Small cell B-cell lymphoma, spleen (principal)
CPT/HCPCS: 36415; 80053; 82232; 82784; 83615; 84155; 84165; 85025; 86334

== ENCOUNTER → 2024-12-22 08:12 | Outpatient (CLI) | payer OTHER, SELFPAY ==
[2022-06-26 14:41] VITALS: BMI 26.9
== END ==
PROVIDERS: Family Provider Family Medicine; PCP Family Medicine; Referring Provider Internal Medicine Critical Care Medicine; Visit Provider Internal Medicine Critical Care Medicine
DX: R06.09 Other forms of dyspnea (principal); Z87.891 Personal history of nicotine dependence; R94.2 Abnormal results of pulmonary function studies
CPT/HCPCS: 94060; 94726; 94729

== ENCOUNTER 2025-04-19 09:37 | Emergency (ER) | payer OTHER, SELFPAY ==
[2022-06-26 14:41] VITALS: BMI 26.9
[2025-04-19 09:48] VITALS: BP 145/68; PULSE 61; RESP 16; TEMP 36.9; O2SAT 97; BMI 27.0
--- NOTE | 2025-04-19 09:52 | DI.RAD.S_ITS ---
PROCEDURE: XR HIP W PEL IF DONE LT 2V INDICATIONS: pain with walking TECHNIQUE: AP pelvis with lateral view of the left hip. [facility] [place], [facility]R PELVIS WITH LATERAL HIP RIGHT, 04/14/2023, 10:04. FINDINGS: Bones: Postsurgical changes from remote prior right hip hemiarthroplasty. No acute fractures or dislocations. Pelvic ring appears intact. No suspicious bony lesions. Moderate left hip osteoarthrosis. Degenerative changes are seen in the sacroiliac joints and spine. Soft tissues: The visualized bowel gas pattern is normal. No suspicious soft tissue calcifications. IMPRESSION: 1. No acute osseous abnormality. If there is continued clinical concern or persistent symptoms, repeat radiographs or cross-sectional imaging (e.g. CT, MRI) may be helpful for further evaluation. 2. Right hemiarthroplasty redemonstrated. Approved by: Héctor Metzger M.D. on 04/19/2025 at 10:25
--- NOTE | 2025-04-19 11:12 | ED.EXTPRO ---
HPI - Extremity Problem <Jazmyn Worley PA-C - Last Filed: 04/19/25 11:56> General Chief complaint: Extremity Problem,Nontraumatic Stated complaint: sharp pn in L hip 2 days Time Seen by Provider: 04/19/25 11:07 Source: patient Mode of arrival: Ambulatory History of Present Illness HPI Narrative: Mr. Rhoades is a very pleasant 80-year-old male with a past medical history of right hip fracture s/p arthroplasty, interstitial lung disease who presents to the emergency department for left hip pain since yesterday. Patient denies any direct injury or trauma to the left hip yesterday but does report that he was lifting very heavy helping his son move about 3 days ago. Patient notices pain that is intermittent sharp on the posterior left hip/SI joint region that feels similar to when he had a fracture of his right hip in the past. He is still ambulatory but does have discomfort in the posterior left hip. No pain at rest. No numbness tingling or weakness or radiation of the pain. No bowel or bladder dysfunction. No saddle anesthesia. No fevers. Related Data Home Medications ?Medication ?Instructions ?Recorded ?Confirmed cholecalciferol (vitamin D3) 25 25 mcg PO DAILY 05/25/20 04/19/25 mcg (1,000 unit) tablet (Vitamin D3) rosuvastatin 40 mg tablet 40 mg PO DAILY 01/25/21 04/19/25 ezetimibe 10 mg tablet 10 mg PO DAILY 02/18/22 04/19/25 diltiazem HCl 120 mg 120 mg PO DAILY 06/23/24 04/19/25 capsule,extended release 24 hr (Cartia XT) spironolactone 25 mg tablet 25 mg PO BID 06/23/24 04/19/25 Previous Rx's ?Medication ?Instructions ?Recorded aspirin 81 mg tablet,delayed 81 mg PO BID #84 tabs 06/15/22 release tiotropium 2.5 mcg-olodaterol 2.5 2 puff inhalation DAILY #4 grams 12/24/24 mcg/actuation mist for inhalation (Stiolto Respimat) Allergies Allergy/AdvReac Type Severity Reaction Status Date / Time oxycodone Allergy Mild itching Verified 04/19/25 08:54 Review of Systems <Jazmyn Worley PA-C - Last Filed: 04/19/25 11:56> Review of Systems ROS Unobtainable: All systems reviewed & are unremarkable except as noted in HPI and below Patient History <Jazmyn Worley PA-C - Last Filed: 04/19/25 11:56> Medical History Left knee DJD Lumbar foraminal stenosis Facet arthropathy, lumbar Hip fx Lumbar radiculopathy Degenerative joint disease of right hip Diarrhea Distal radius fracture, left A-fib Surgical History H/O wrist surgery History of hernia surgery History of appendectomy H/O splenectomy Hx of heart artery stent History of total right hip arthroplasty Social History household members: spouse Smoking Status: Former smoker alcohol intake: current Smoking Status: Former smoker alcohol intake frequency: 0-2 drinks per day Alcohol type: wine Exam <Jazmyn Worley PA-C - Last Filed: 04/19/25 11:56> Narrative Exam Narrative: GENERAL: 80 year old patient appears stated age. Well-developed patient, in no acute distress. HEAD: Atraumatic. Normocephalic. EYES: No scleral icterus. No injection or drainage. NECK: Trachea midline. Cervical ROM intact. CARDIOVASCULAR: Regular rate RESPIRATORY: ?Nonlabored respirations. ?Speaking in clear, full sentences. ?? EXTREMITIES: Patient has reproducible tenderness palpation of the left SI joint region. Exacerbation of pain with left hip extension. No pain with hip flexion. No deformities. No tenderness to palpation of bilateral ankles, knees. 5/5 bilateral plantar and dorsiflexion strength, knee flexion-extension strength and hip flexion strength. Sensation intact to light touch in the bilateral lower extremities and lower extremities are warm and well perfused. He is ambulatory without limp. BACK: No midline tenderness. NEURO: AOx3. ?Clear speech. ?Moves all 4 extremities appropriately. SKIN: No rash or erythema of visible areas Initial Vital Signs Initial Vital Signs: Vital Signs Temperature 98.5 F 04/19/25 09:48 Pulse Rate 61 04/19/25 09:48 Respiratory Rate 16 04/19/25 09:48 Blood Pressure 145/68 H 04/19/25 09:48 Pulse Oximetry 97 09/30/25 09:48 Oxygen Delivery Method Room Air 04/19/25 09:48 <Good Velásquez MD - Last Filed: 04/19/25 19:53> Initial Vital Signs Initial Vital Signs: Vital Signs Temperature 98.5 F 04/19/25 09:48 Pulse Rate 61 04/19/25 09:48 Respiratory Rate 16 04/19/25 09:48 Blood Pressure 145/68 H 04/19/25 09:48 Pulse Oximetry 97 04/19/25 09:48 Oxygen Delivery Method Room Air 04/19/25 09:48 Course <Jazmyn Worley PA-C - Last Filed: 04/19/25 11:56> Orders Ordered: ED Orders 04/19/25 09:52 XR hip w pel LT 2V Stat Vital Signs Vital signs: Vital Signs - 8 hr 04/19/25 09:48 04/19/25 11:26 Temperature 98.5 F 98 F Pulse Rate 61 61 Respiratory Rate 16 16 Blood Pressure 145/68 H 128/62 Pulse Oximetry 97 97 Oxygen Delivery Method Room Air Room Air <Good Velásquez MD - Last Filed: 04/19/25 19:53> Orders Ordered: ED Orders 04/19/25 09:52 XR hip w pel LT 2V Stat Vital Signs Vital signs: Vital Signs - 8 hr 04/19/25 09:48 04/19/25 11:26 Temperature 98.5 F 98 F Pulse Rate 61 61 Respiratory Rate 16 16 Blood Pressure 145/68 H 128/62 Pulse Oximetry 97 97 Oxygen Delivery Method Room Air Room Air MDM - Extremity (Nontraumatic) <Jazmyn Worley PA-C - Last Filed: 04/19/25 11:56> Medical Records Attestation: I reviewed the patient's medical records. Imaging Data Left Hip X-Ray: Radiologist's Impression: PROCEDURE: XR HIP W PEL IF DONE LT 2V INDICATIONS: pain with walking TECHNIQUE: AP pelvis with lateral view of the left hip. COMPARISON: [facility], , XR PELVIS WITH LATERAL HIP RIGHT, 04/14/2023, 10:04. FINDINGS: Bones: Postsurgical changes from remote prior right hip hemiarthroplasty. No acute fractures or dislocations. Pelvic ring appears intact. No suspicious bony lesions. Moderate left hip osteoarthrosis. Degenerative changes are seen in the sacroiliac joints and spine. Soft tissues: The visualized bowel gas pattern is normal. No suspicious soft tissue calcifications. IMPRESSION: 1. No acute osseous abnormality. If there is continued clinical concern or persistent symptoms, repeat radiographs or cross-sectional imaging (e.g. CT, MRI) may be helpful for further evaluation. 2. Right hemiarthroplasty redemonstrated. Approved by: Héctor Metzger M.D. on 04/19/2025 at 10:25 MDM Narrative Medical decision making narrative: 80-year-old male with a past medical history of right hip fracture s/p arthroplasty, interstitial lung disease who presents to the emergency department for left hip pain since yesterday. Differential diagnosis includes but is not limited to left hip sprain, strain, fracture, dislocation, sacroiliitis, etc. On exam patient is in no acute distress, nontoxic appearing, vital signs appropriate. Left hip x-ray obtained in triage. Patient reports nontraumatic posterior left hip pain worse with left hip extension. He is neurovascularly intact and ambulatory. X-ray reveals no acute osseous abnormality, there is moderate left hip osteoarthrosis, degenerative changes seen at sacroiliac joints and the spine. Printed discussed x-ray results with the patient. Recommended supportive care at this time in addition to follow up with [facility] for further management and potentially more advanced imaging. I did discuss strict ER return precautions with the patient and discussed that x-ray can miss subtle findings and also do not demonstrate soft tissue injury. He does have a gum procedure tomorrow and can not take NSAIDs so recommended Tylenol and topical heat/ice at this time. Patient verbalized understanding all information is agreeable with the plan, he is ambulatory and stable for discharge home. Discharge Plan Departure Patient Disposition: Home Clinical Impression: Localized osteoarthrosis of left hip, Degenerative joint disease of sacroiliac joint Instructions: DI for Hip Pain Activity Restrictions/Additional Instructions: Dear [place], Thank you for coming to the emergency department. Today you were evaluated for left hip pain. Your x-ray revealed no fractures or dislocations. You do have moderate left hip osteoarthrosis and degenerative changes seen in the sacroiliac joints and the spine. Please follow up with [facility] for further management of your left hip pain. Please return to the emergency department immediately if you develop new or worsening symptoms or any concerns. Please rest, apply ice or heat to the left hip to help with pain, in addition to taking [id number] pain medications such as acetaminophen/Tylenol or ibuprofen/Motrin. Please follow up with your primary care doctor within the next 2-3 days for ER follow-up. (If you do not have a PCP you can call [phone]. ?to schedule an appointment with an [facility] Primary Care Provider) IF YOU DEVELOP ANY NEW OR WORSENING SYMPTOMS, RETURN TO THE ER! Please read the attached instructions, they highlight more specific treatments and interventions for you at home. Thank you for letting me participate in your care, Jazmyn Worley PA-C Prescriptions: No Action Stiolto Respimat 2.5-2.5 mcg/actuation mist 2 puff inhalation DAILY Qty: 4 11RF aspirin 81 mg Tablet,Delayed Release (Dr/Ec) 81 mg PO BID Qty: 84 0RF cholecalciferol (vitamin D3) [Vitamin D3] 25 mcg (1,000 unit) Tablet 25 mcg PO DAILY rosuvastatin 40 mg Tablet 40 mg PO DAILY ezetimibe 10 mg Tablet 10 mg PO DAILY diltiazem HCl [Cartia XT] 120 mg capsule,extended release 24hr 120 mg PO DAILY spironolactone 25 mg tablet 25 mg PO BID Referrals: Alfred Solis MD [Primary Care Provider, Family Practice] Joe Hamilton MD [Physician, Orthopedic Surgery] Referral Note: Left hip pain Stand Alone Forms: Patient Portal/API ED Sign-out <Good Velásquez MD - Last Filed: 04/19/25 19:53> [facility] Att[facility]: I was immediately available in the department for consultation. This documentation has been reviewed and I agree with assessment and plan. Supervised by Good Velásquez MD
[2025-04-19 11:26] VITALS: BP 128/62; PULSE 61; RESP 16; TEMP 36.6; O2SAT 97
== END 2025-04-19 11:29 | disposition home or self-care (01) ==
PROVIDERS: Emergency Provider Physician Assistant; Family Provider Family Medicine; PCP Family Medicine
DX: M16.12 Unilateral primary osteoarthritis, left hip (principal); M46.1 Sacroiliitis, not elsewhere classified; J84.9 Interstitial pulmonary disease, unspecified; Z68.27 Body mass index [BMI] 27.0-27.9, adult
CPT/HCPCS: 73502; 99215; 99281; 99283

== ENCOUNTER → 2025-05-14 12:45 | Outpatient (CLI) | payer OTHER, SELFPAY ==
[2022-06-26 14:41] VITALS: BMI 26.9
--- NOTE | 2025-05-14 12:47 | DI.CT.S_ITS ---
PROCEDURE: CT CHEST HIGH RESOLUTION INDICATIONS: ILD, eval for change TECHNIQUE: Noncontrast 1.0 and 5.0 mm thick contiguous axial sections from the pulmonary apex to the posterior costophrenic angles, with 7 mm thick coronal and sagittal MIP reformats. 1 mm thick dynamic expiratory images acquired through the upper, mid, and lower lungs. 1.0 mm thick axial sections acquired from the teri to the posterior costophrenic angles in the prone end-inspiration position. For radiation dose reduction, the following was used: automated exposure control, adjustment of mA and/or kV according to patient size. COMPARISON: [facility], CT, CT CHEST HIGH RESOLUTION, 07/07/2023, 10:22. FINDINGS: Image quality: Diagnostic. Lungs and Pleura: Bilateral peripheral reticulation and pleural irregularity. This extends from apex to base but is most prominent in the base. Minimal posterior costophrenic sulci honeycombing, stable. Mild peripheral bilateral lower lobe bronchial wall thickening and mild traction bronchiectasis, also similar. No acute ground-glass opacities or consolidations. Calcified left lung granulomas. No new suspicious lung nodule. Minor air trapping. No pleural effusions or pleural calcifications. Lower Neck: No enlarged lymph nodes. Thyroid: Normal CT appearance. Axillae: No enlarged lymph nodes. Chest Wall: No suspicious chest wall lesions. Bones: No suspicious bone lesion. Multilevel degenerative disc and endplate changes throughout the visible spine. Thoracic Vessels: The aorta and pulmonary arteries demonstrate normal size. Moderate arch calcification. Mediastinum and Silvia: Nonenlarged, calcified left hilar lymph nodes. No new mediastinal or hilar adenopathy. Heart: Heart size is normal. No pericardial effusion. LAD stenting and moderate coronary artery calcification. Esophagus: No wall thickening. No hiatal hernia. Upper Abdomen: Visualized upper abdomen solid organs and bowel loops appear normal. IMPRESSION: No significant change in findings consistent with mild UIP. No acute findings such as airspace opacities or lymphadenopathy. Dictated by: Lucy Barry M.D. on 05/16/2025 at 13:32 Approved by: Lucy Barry M.D. on 05/16/2025 at 13:45
== END ==
LOC: CT 12:46
PROVIDERS: Family Provider Family Medicine; Referring Provider Internal Medicine Critical Care Medicine; Visit Provider Internal Medicine Critical Care Medicine
DX: J84.9 Interstitial pulmonary disease, unspecified (principal); I70.0 Atherosclerosis of aorta; I25.10 Atherosclerotic heart disease of native coronary artery without angina pectoris; Z95.5 Presence of coronary angioplasty implant and graft
CPT/HCPCS: 71250

== ENCOUNTER → 2025-05-16 09:19 | Outpatient (CLI) | payer OTHER, SELFPAY ==
[2022-06-26 14:41] VITALS: BMI 26.9
--- NOTE | 2025-05-16 09:21 | DI.RAD.S_ITS ---
PROCEDURE: XR KNEE RT 3V INDICATIONS: Knee djd TECHNIQUE: 3 views of the knee were acquired. COMPARISON: [facility], CR, XR KNEE LT 3V, 06/21/2024, 11:32. FINDINGS: Bones: Mild medial and patellofemoral joint space narrowing with subchondral sclerosis. Small phlebolith. Small osteophytes along superior patella. No fractures or dislocations. No suspicious bony lesions. Soft tissues: Moderate vascular calcification. No joint effusion. No suspicious soft tissue calcifications. IMPRESSION: Mild medial and patellofemoral joint degeneration with associated subchondral sclerosis and osteophytes. Dictated by: Fatuma Helm [facility] Interpreted: Lucy Barry MD on 05/16/2025 at 9:36 Transcribed by: JUAN on 05/16/2025 at 10:13 Approved by: Lucy Barry M.D. on 05/16/2025 at 17:29
== END ==
PROVIDERS: Referring Provider Physical Medicine & Rehabilitation; Visit Provider Physical Medicine & Rehabilitation
DX: M17.0 Bilateral primary osteoarthritis of knee (principal); M25.761 Osteophyte, right knee
CPT/HCPCS: 73562

== ENCOUNTER 2025-07-16 10:24 | Emergency (ER) | payer OTHER, SELFPAY ==
[2022-06-26 14:41] VITALS: BMI 26.9
[2025-07-16 10:28] VITALS: BP 149/66; PULSE 62; RESP 14; TEMP 36.6; O2SAT 98; BMI 26.6
--- NOTE | 2025-07-16 10:30 | ED.UPPEXIN ---
HPI - Extremity Injury (Upper) General Chief Complaint: Extremity Injury, Upper Stated Complaint: Injured RT index finger Time Seen by Provider: 07/16/25 10:29 Source: patient Mode of arrival: Ambulatory History of Present Illness HPI narrative: 80y M past medical history of right hip fracture status post arthroplasty, interstitial lung disease, presents with right index finger injury after getting it caught in door handle yesterday heard a pop having pain despite taking some pain medicine for it. Other than what is stated 14 point review of system is negative. Related Data Home Medications ?Medication ?Instructions ?Recorded ?Confirmed cholecalciferol (vitamin D3) 25 25 mcg PO DAILY 05/25/20 05/16/25 mcg (1,000 unit) tablet (Vitamin D3) rosuvastatin 40 mg tablet 40 mg PO DAILY 01/25/21 05/16/25 ezetimibe 10 mg tablet 10 mg PO DAILY 02/18/22 05/16/25 diltiazem HCl 120 mg 120 mg PO DAILY 06/23/24 05/16/25 capsule,extended release 24 hr (Cartia XT) spironolactone 25 mg tablet 25 mg PO BID 06/23/24 05/16/25 Previous Rx's ?Medication ?Instructions ?Recorded aspirin 81 mg tablet,delayed 81 mg PO BID #84 tabs 06/15/22 release tiotropium 2.5 mcg-olodaterol 2.5 2 puff inhalation DAILY #4 grams 12/24/24 mcg/actuation mist for inhalation (Stiolto Respimat) Allergies Allergy/AdvReac Type Severity Reaction Status Date / Time oxycodone Allergy Mild itching Verified 05/16/25 08:32 Review of Systems Review of Systems ROS Unobtainable: All systems reviewed & are unremarkable except as noted in HPI and below Patient History Medical History A-fib Degenerative joint disease of right hip Diarrhea Distal radius fracture, left Facet arthropathy, lumbar Hip fx Left knee DJD Lumbar foraminal stenosis Lumbar radiculopathy Surgical History H/O splenectomy H/O wrist surgery History of appendectomy History of hernia surgery History of total right hip arthroplasty Hx of heart artery stent Social History (Reviewed 04/19/25 @ 11:52 by AMBER Faust household members: spouse Smoking Status: Unknown if ever smoked alcohol intake: current Smoking Status: Unknown if ever smoked alcohol intake frequency: 0-2 drinks per day Alcohol type: wine Exam Narrative Exam Narrative: GENERAL: [80] year old patient appears stated age. Well-developed patient, in mild distress. HEAD: Atraumatic. Normocephalic. EYES: Pupils equal round and reactive. Extraocular motions intact. No scleral icterus. No injection or drainage. NECK: Trachea midline. Non tender EXTREMITIES: R index finger soft tissue swellnig with dec ROM in flex and extension at all joints due to pain +2 rad pulse cap refill <2secs BACK: Nontender without deformity or crepitance. No flank tenderness. NEURO: AOx3. SKIN: No rash or erythema of visible areas Initial Vital Signs Initial Vital Signs: Vital Signs Temperature 97.9 F 07/16/25 10:28 Pulse Rate 62 07/16/25 10:28 Respiratory Rate 14 07/16/25 10:28 Blood Pressure 149/66 H 07/16/25 10:28 Pulse Oximetry 98 07/16/25 10:28 Oxygen Delivery Method Room Air 07/16/25 10:28 Course Orders Ordered: ED Orders 07/16/25 10:30 XR finger RT min 2V Stat Vital Signs Vital signs: Vital Signs - 8 hr 07/16/25 10:28 Temperature 97.9 F Pulse Rate 62 Respiratory Rate 14 Blood Pressure 149/66 H Pulse Oximetry 98 Oxygen Delivery Method Room Air MDM - Extremity Injury (Upper) Imaging Data Extremity x-ray #1: Radiologist's Impression: [address] [address] XRay Report Signed Patient: Theodore Rhoades MR#: [id number] : 1945 Acct:[id number] Age/Sex: 80 / M Date of Service: 07/16/25 Loc: ED Accession Number: [id number] Procedure: XR finger RT min 2V Ordering Provider: Steve Negrete D.O. PROCEDURE: XR FINGER RT MIN 2V INDICATIONS: index finger injury TECHNIQUE: AP hand, 2 views of the 2nd finger(s) acquired. COMPARISON: None. FINDINGS: Bones: There is a subacute appearing fracture seen involving the proximal base of the proximal phalanx of the 2nd finger. Significant degenerative changes are seen, including involving the hand and the wrist. Soft tissues: No suspicious soft tissue calcifications. IMPRESSION: Subacute appearing fracture seen involving the proximal aspect of the proximal base of the index finger. Please correlate with patient history and physical examination findings. Dictated by: Edmar Selby M.D. on 07/16/2025 at 9:57 Approved by: Edmar Selby M.D. on 07/16/2025 at 10:00 [facility] Narrative Medical decision making narrative: Vital signs, nurse triage note, medication list, previous ER visits, and all imaging studies reviewed. Differential diagnosis fracture contusion sprain. Finger splint and [facility] md referral for - acute appearing fracture seen involving the proximal aspect of the proximal base of the index finger. Discharge Plan Departure Patient Disposition: Home Clinical Impression: Finger fracture Instructions: DI for Finger Fracture Activity Restrictions/Additional Instructions: Return with new or worsening symptoms. Follow up with [facility] referral. Prescriptions: No Action Stiolto Respimat 2.5-2.5 mcg/actuation mist 2 puff inhalation DAILY Qty: 4 11RF aspirin 81 mg Tablet,Delayed Release (Dr/Ec) 81 mg PO BID Qty: 84 0RF cholecalciferol (vitamin D3) [Vitamin D3] 25 mcg (1,000 unit) Tablet 25 mcg PO DAILY rosuvastatin 40 mg Tablet 40 mg PO DAILY ezetimibe 10 mg Tablet 10 mg PO DAILY diltiazem HCl [Cartia XT] 120 mg capsule,extended release 24hr 120 mg PO DAILY spironolactone 25 mg tablet 25 mg PO BID Stand Alone Forms: Patient Portal/API
[2025-07-16 13:15] VITALS: BP 130/62; PULSE 60; RESP 16; O2SAT 98
== END 2025-07-16 13:16 | disposition home or self-care (01) ==
PROVIDERS: Emergency Provider Family Medicine
DX: S62.640A Nondisplaced fracture of proximal phalanx of right index finger, initial encounter for closed fracture (principal); W23.0XXA Caught, crushed, jammed, or pinched between moving objects, initial encounter
CPT/HCPCS: 29130; 73140; 99281; 99283